=== PATIENT | female | born 1995 | race Caucasian/White ===

== ENCOUNTER 2016-11-11 13:02 | Observation (INO) ==
[2016-11-11] MEDS ORDERED: 0.9 % Sodium Chloride 1,000 ML IV ONE ×4 (13:10→16:04)
--- NOTE | 2016-11-11 13:20 | Emergency Department Note ---
START Narrative - START START: I examined this patient and my medical decision-making was reviewed with the CONCRETE TESTER/PA/Advanced Practice Nurse/Resident Physician. I agree with the documented findings, disposition and treatment plan as described except to the extent set forth below. ED attending: Patient's emergency medicine resident Dr. Holt. Please see copy of this note for H&P evaluation and management and ED disposition. We both had independent [id number] time in contact with this patient. Briefly: A 21-year-old diabetic by EMS nausea vomiting. Abdominal examination is benign. Dry oral mucosa and tachycardic. Patient is clinically suspicious for acute DKA. Be given IV fluids checking lites and then popped being placed on insulin. Accu-Chek is in the 400s. Admission anticipated, 35 minutes of critical care services provided to this patient.
[2016-11-11 14:36] LABS: Basophils # 0.1 K/mcL (0.0-0.2); Basophils % 0.7 %; Eosinophils % 0.1 %; Hematocrit 41.3 % (35.3-44.9); Hemoglobin 13.8 g/dL (11.5-15.4); Immature Granulocytes % 0.5 % (0-4); Lymphocytes # 1.9 K/mcL (0.6-4.6); Lymphocytes % 12.2 %; Mean Corpuscular HGB Conc 33.4 g/dL (31.6-35.5); Mean Corpuscular Hemoglobin 29.8 pg (28.0-33.3); Mean Corpuscular Volume 89.2 fL (83.0-100.0); Mean Platelet Volume 10.4 fL (9.4-12.4); Monocytes # 0.5 K/mcL (0.0-1.3); Monocytes % 2.9 %; Platelet Count 308 K/mcL (140-400); Red Blood Count 4.63 M/mcL (3.82-4.97); Red Cell Distribution Width 11.9 % (11.5-14.5); Segmented Neutrophils % 83.6 %
[2016-11-11 14:42] LABS: VBG HCO3 13.8 mEq/L (21-27)
[2016-11-11 14:44] LABS: VBG PH 7.18 pH Units (7.32-7.42)
[2016-11-11 14:51] LABS: Alanine Aminotransferase 11 Units/L (0-55); Albumin 3.7 g/dL (3.5-5.0); Albumin/Globulin Ratio 1.2 (1.1-2.2); Alkaline Phosphatase 63 Units/L (38-126); Aspartate Amino Transferase 8 Units/L (5-34); BUN/Creatinine Ratio 12 (6-26); Bilirubin,Direct 0.4 mg/dL (0.0-0.5); Bilirubin,Indirect 0.3 mg/dL (0.0-1.2); Bilirubin,Total 0.7 mg/dL (0.2-1.2); Blood Urea Nitrogen 12 mg/dL (7-20); Calcium 9.1 mg/dL (8.6-10.8); Carbon Dioxide 12 mEq/L (19-29); Chloride 103 mEq/L (98-109); Globulin 3.1 g/dL (2.4-3.5); Magnesium 1.4 mg/dL (1.6-2.6); Osmolality,Calculated 317 (280-300); Phosphorous 4.2 mg/dL (2.3-4.7); Potassium 4.5 mEq/L (3.5-4.5); Sodium 138 mEq/L (136-145); Total Protein 6.8 g/dL (6.0-8.3); eGFR For African Americans > 60 (> 60); eGFR For Non-African Americans > 60 (> 60)
[2016-11-11 14:58] LABS: Glucose 656 mg/dL (70-99)
[2016-11-11 15:00] LABS: Beta-Hydroxybutyric Acid > 2.00 mmol/L (0.02-0.27)
[2016-11-11 15:13] LABS: Lipase 20 Units/L (8-78)
[2016-11-11] MEDS ORDERED: Insulin Human Regular 100 UNIT in 0.9 % Sodium Chloride 100 ML IVC SCH ×3 (15:30→19:00)
[2016-11-11] MEDS ORDERED: Magnesium Sulfate 1 GM in D5% in Water 100 ML IVPB ONE (15:34)
--- NOTE | 2016-11-11 16:01 | Emergency Department Note ---
Disposition Clinical Impression: DKA, type 1 Qualifiers: Diabetes mellitus complication detail: without coma Qualified Code(s): E10.10 - Type 1 diabetes mellitus with ketoacidosis without coma Disposition: Admitted As Inpatient Condition: Good Forms: Work/School Release, ED Satisfaction Letter Abdominal Pain HPI - General Chief Complaint: ED Abdominal Pain Stated Complaint: abdominal pain Time Seen by Provider: 11/11/16 13:07 Source: EMS Mode of arrival: EMS Limitations: no limitations Nursing Notes Reviewed: Yes Vital Signs Reviewed: Yes - History of Present Illness HPI Narrative: Patient here for evaluation of nausea vomiting and diffuse abdominal pain. Patient has a history of type 1 diabetes and noncompliance. Patient states she did not take her insulin yesterday. She states to the nurse that she does not usually take her insulin. Does not do [id number] glucose checks either per nurse report. Patient was at work when she develops nausea and vomiting times several episodes without bile or blood. Patient is not had any change in constipation or diarrhea and does not have any focal abdominal signs. Patient states this is similar to her previous DKA episodes. Pain Scale: 10 - Related Data Home Medications Medication Instructions Recorded Confirmed Insulin LISPRO [Humalog] 0 unit SQ TIDWM MDD Sliding Scale 10/31/15 09/14/16 Previous Rx's Medication Instructions Recorded Insulin Glargine [Lantus] 30 unit SQ BID 30 Days 09/16/16 Allergies Allergy/AdvReac Type Severity Reaction Status Date / Time Amoxicillin Allergy Hives Verified 11/11/16 13:11 Constitutional: Reports: weakness. Denies: fever, chills Cardiovascular: Denies: chest pain, palpitations, dyspnea on exertion Respiratory: Denies: cough, dyspnea Gastrointestinal: Reports: abdominal pain, nausea, vomiting Genitourinary: Denies: urgency, dysuria, frequency Musculoskeletal: Denies: back pain Integumentary: Denies: rash Neurological: Denies: headache, weakness Endocrine: Denies: fatigue Abdominal Pain PMH - Past Medical History Medical history: Reports: diabetes Female Surgical History: Reports: Tonsillectomy MARITIME OFFICER history: Reports: no MARITIME OFFICER history Psychiatric history: Reports: no psych history - Social History Smoking status: Never smoker Alcohol use: Reports: none Drug use: Reports: none Physical Exam - General General appearance: in no apparent distress, lethargic - Head Head exam: atraumatic, normocephalic - Eye Eye exam: Present: normal appearance - ENT ENT exam: normal exam, normal oropharynx - Neck Neck exam: Present: normal inspection, full ROM - Chest Chest inspection: Present: normal inspection, symmetric chest wall rise. Absent : tenderness - Respiratory Respiratory exam: Present: normal lung sounds bilaterally. Absent: respiratory distress, wheezes - Cardiovascular Cardiovascular exam: Present: regular rate, normal rhythm - Abdominal Exam Abdominal exam: Present: soft, Non-Tender - Extremities Exam Extremities exam: Present: normal inspection, full ROM - Back Exam Back exam: Present: normal inspection, full ROM. Absent: tenderness, CVA tenderness (R), CVA tenderness (L) - Neurological Exam Neurological exam: Present: alert, oriented X3 - Psychiatric Psychiatric exam: Present: normal affect, normal mood - Skin Skin exam: Present: warm, dry, intact Course - Reevaluation(s) Reevaluation #1: Patient educated about labs and clinical condition. Patient states she has had this multiple times in the past. She states that she feels much better after initial fluids and would like to have a shot of insulin and go home. However due to her pH up this is not a good option at this time; I recommend that the patient stay for admission. - Consultations Consultation #1: Discussed with . Pt accepted. Vital Signs Temperature 97.7 F 11/11/16 13:07 Pulse Rate 102 11/11/16 13:07 Respiratory Rate 16 11/11/16 13:07 Blood Pressure 96/58 11/11/16 13:07 O2 Sat by Pulse Oximetry 99 11/11/16 13:07 Temperature 97.7 F 11/11/16 13:07 Pulse Rate 114 11/11/16 15:52 Respiratory Rate 16 11/11/16 15:52 Blood Pressure 103/57 11/11/16 15:52 O2 Sat by Pulse Oximetry 99 11/11/16 15:52 Oxygen Delivery Oxygen Delivery Room Air Abdominal Pain - Lab Data Result diagrams: 11/11/16 13:09 11/11/16 13:09 Lab Results 11/11/16 11/11/16 11/11/16 Range/Units 13:09 13:09 13:09 WBC 15.5 H (4.3-11.1) K/mcL RBC 4.63 (3.82-4.97) M/mcL Hgb 13.8 (11.5-15.4) g/dL Hct 41.3 (35.3-44.9) % MCV 89.2 (83.0-100.0) fL MCH 29.8 (28.0-33.3) pg MCHC 33.4 (31.6-35.5) g/dL RDW 11.9 (11.5-14.5) % Plt Count 308 (140-400) K/mcL MPV 10.4 (9.4-12.4) fL Immature Gran % 0.5 (0-4) % Seg Neutrophils % 83.6 % Lymphocytes % 12.2 % Monocytes % 2.9 % Eosinophils % 0.1 % Basophils % 0.7 % Neutrophils # 13.0 H (1.6-8.9) K/mcL Lymphocytes # 1.9 (0.6-4.6) K/mcL Monocytes # 0.5 (0.0-1.3) K/mcL Eosinophils # 0.0 (0.0-0.6) K/mcL Basophils # 0.1 (0.0-0.2) K/mcL VBG pH 7.18 L* (7.32-7.42) pH Units VBG pCO2 37 L (41-51) mmHg VBG pO2 54 H (25-40) mmHg VBG HCO3 13.8 L (21-27) mEq/L Sodium 138 (136-145) mEq/L Potassium 4.5 (3.5-4.5) mEq/L Chloride 103 (98-109) mEq/L Carbon Dioxide 12 L (19-29) mEq/L BUN 12 (7-20) mg/dL Creatinine 0.99 (0.57-1.11) mg/dL Est GFR ( Amer) > 60 (> 60) Est GFR (Non-Af Amer) > 60 (> 60) BUN/Creatinine Ratio 12 (6-26) Glucose 656 H* (70-99) mg/dL Calculated Osmolality 317 H (280-300) Calcium 9.1 (8.6-10.8) mg/dL Phosphorus 4.2 (2.3-4.7) mg/dL Magnesium 1.4 L (1.6-2.6) mg/dL Total Bilirubin 0.7 (0.2-1.2) mg/dL Direct Bilirubin 0.4 (0.0-0.5) mg/dL Indirect Bilirubin 0.3 (0.0-1.2) mg/dL AST 8 (5-34) Units/L ALT 11 (0-55) Units/L Alkaline Phosphatase 63 (38-126) Units/L Serum Total Protein 6.8 (6.0-8.3) g/dL Albumin 3.7 (3.5-5.0) g/dL Globulin 3.1 (2.4-3.5) g/dL Albumin/Globulin Ratio 1.2 (1.1-2.2) Lipase 20 (8-78) Units/L Beta-Hydroxybutyric Acd > 2.00 H (0.02-0.27) mmol/L Beta HCG, Quant < 1 (0-4) mIU/ml
[2016-11-11] MEDS ORDERED: Magnesium Oxide 400 MG TABLET PO ONE (16:42)
[2016-11-11] MEDS ORDERED: Ondansetron 4 MG/2 ML VIAL IVP PRN (17:32)
[2016-11-11] MEDS ORDERED: Naloxone 0.4 MG/ML INJ IVP PRN (17:32)
[2016-11-11] MEDS ORDERED: Insulin Regular, Human 100 UNIT/ML IV PRN ×2 (17:34→18:51)
[2016-11-11] MEDS ORDERED: *HR* Dextrose 50 % in Water (Syg) 50 ML SYRINGE IVP PRN ×3 (17:34→18:51)
[2016-11-11] MEDS ORDERED: D5% in 0.45% NACL 1,000 ML IVC PRN (17:34)
[2016-11-11] MEDS ORDERED: 0.9 % Sodium Chloride 1,000 ML IVC SCH (17:45)
[2016-11-11] MEDS ORDERED: 0.9 % Sodium Chloride w KCl 20 MEQ/1,000 ML MLS IVC SCH ×2 (17:45)
[2016-11-11] MEDS ORDERED: 0.9 % Sodium Chloride 1,000 ML IV SCH ×2 (17:45)
--- NOTE | 2016-11-11 17:49 | Internal Med History&Physical ---
<Girma Hardin - Last Filed: 11/11/16 17:46> Date of Encounter: 11/11/16 Time of Encounter: 17:46 Assessment and Plan (1) DKA, type 1 Current visit: Yes Status: Acute 3rd time being admitted for last one year, non compliant with checking her sugar at home, missed the basal dosage last night, received 4 L of NS IV bolus in the ER, will con't insulin drip with DKA protocol, replete potassium when below 5.3, check BMP q4hrs x3, switch drip to SQ when anion gap closes and bicarb is above 18, chronic issue for not being compliant at home, will check a1c and consult special educator. Qualifiers: Diabetes mellitus complication detail: without coma Qualified Code(s): E10.10 - Type 1 diabetes mellitus with ketoacidosis without coma (2) Type 1 diabetes mellitus Current visit: No Status: Acute Takes 30 SQ lantus BID and 10 to 15 SQ bolus before each meal, last a1c in Aug was 7.3, will consult special educator. 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 (4) DVT prophylaxis Current visit: No Status: Acute Heparin SQ BID. Internal Medicine - H&P: HPI Chief complaint: Abdominal pain and N/V Admitted From: Emergency Dept Plans for Post Hospital Care: Home History of present illness: Ms. Knowles is a 21 year old female with hx of DM I, not compliant with checking glucose at home, last time she checked was 3 weeks ago but she gives her self basal insulin BID and bolus TID before each meal, she missed last night 's basal dosage and this AM woke up with diffuse abdominal pain and nausea/ emesis. When she came to the ER, glucose was 656, serum ketone was more than 2, anion gap of 23 with bicarb of 12, pH of 7.18, she was started on IV insulin drip and received 4L of NS IV bolus, after that she felt better. This is her 3rd times being admitted for DKA in the last one year. Past Med Surg Social Fam HX - Past Medical History Medical history: diabetes Psychiatric history: no psych history - Past Surgical History Surgical History: no surgical history - Social History Smoking Status: Never smoker Smokeless Tobacco Status: No Alcohol use: none Drug use: none - Family History Mother Adopted: No Living Status: Still Living Internal Medicine - H&P: Meds Insulin LISPRO [Humalog] 10 - 15 unit SQ TIDWM MDD Sliding Scale 10/31/15 [ History] Insulin Glargine [Lantus] 30 unit SQ BID 30 Days 09/16/16 [Rx] Allergies Amoxicillin Allergy (Verified 11/11/16 13:11) Hives All Systems PM: A 10-system review of systems was performed and is negative for pertinent findings except as documented above in the HPI. Review of systems: Admits diffuse abdominal pain, nausea/emesis but denies fever/chill, [place], SOB, productive cough, chest pain, diarrhea or dysuria. - Constitutional Vitals: Temp Pulse Resp BP Pulse Ox 97.7 F 114 16 115/70 99 11/11/16 13:07 11/11/16 15:52 11/11/16 17:11 11/11/16 17:11 11/11/16 15:52 General appearance: Present: cooperative, A&O X 3, pleasant, no acute distress, answers questions appropriately - Head Head exam: Present: atraumatic, normocephalic - Eye Eye exam: Present: PERRL, conjuntiva pink, sclera anicteric Pupils: Present: PERRL - Neck Neck exam general surgery: Present: supple, trachea midline. Absent: lymphadenopathy - Respiratory Respiratory exam: Present: CTAB. Absent: accessory muscle use, rales, rhonchi, wheezes - Cardiovascular Cardiovascular exam: Present: RRR, +S1, +S2. Absent: diastolic murmur, gallop, rubs, systolic murmur - GI/Abdominal GI/Abdominal exam: Present: normal bowel sounds, soft, tenderness (slightly with palpation diffusely), no peritoneal signs. Absent: distended - Extremities Exam Extremities exam: Present: warm, radial pulses palpable and symetrical. Absent : calf tenderness, cyanotic, pedal edema - Neurological Exam Neurological exam: Present: CN II-XII intact, oriented X3, no focal deficits. Absent: pronater drift, facial droop, speech deficit - Skin Skin exam: Present: dry, intact Internal Med - H&P Results - Labs CBC & Chem 7: 11/11/16 13:09 11/11/16 13:09 <Bobby Rojo - Last Filed: 11/11/16 20:10> Date of Encounter: 11/11/16 Assessment and Plan (1) DKA, type 1 Current visit: Yes Status: Acute Qualifiers: Diabetes mellitus complication detail: without coma Qualified Code(s): E10.10 - Type 1 diabetes mellitus with ketoacidosis without coma (2) Nephrocalcinosis Current visit: Yes Status: Acute (3) Type 1 diabetes mellitus Current visit: No Status: Acute Qualifiers: Diabetes mellitus complication status: without complication Qualified Code( s): E10.9 - Type 1 diabetes mellitus without complications Internal Medicine - H&P: HPI History of present illness: Ms. Knowles is a 21 year old female All Systems PM: A 10-system review of systems was performed and is negative for pertinent findings except as documented above in the HPI. - Constitutional Vitals: Temp Pulse Resp BP Pulse Ox 98.8 F 125 16 109/64 99 11/11/16 18:18 11/11/16 18:18 11/11/16 18:18 11/11/16 18:18 11/11/16 15:52 Internal Med - H&P Results - Labs CBC & Chem 7: 11/11/16 13:09 11/11/16 13:09 Labs: Urine 11/11/16 Range/Units Unknown Urine Color Yellow (Yellow) Urine Clarity Clear (Clear) Urine pH 6.0 (5.0-8.0) pH Units Ur Specific [place] 1.023 (1.010-1.025) Urine Protein Negative (Neg-Trace) mg/dL Urine Glucose (UA) >=1000 H (Normal) mg/dL - Attending Attestation I examined this patient and my medical decision-making was reviewed with the Resident Physician on 11/11/16. I agree with the documented findings, disposition and treatment plan as described except to the extent set forth below. 21 y/o female with hx of insulin dependent diabetes presented to ED with abd pain and nausea. Found to be in DKA. Currently beginning to feel somewhat better after insulin and fluids. Pain in abdomen improving. Hungry. History above reviewed Exam Alert. Comfortable Mucus membranes dry Heart tachy and regular Lungs clear Abd soft and nontender No edema Labs reviewed I/P 1. Acute DKA 2. Insulin dependent diabetes Further diagnoses and plan as above.
[2016-11-11 18:11] LABS: Bilirubin,Urine Negative (Negative); Blood,Urine Negative (Negative); Clarity,Urine Clear (Clear); Color,Urine Yellow (Yellow); Glucose,Urine (UA) >=1000 mg/dL (Normal); Ketones,Urine >=160 mg/dL (Negative); Leukocyte Esterase,Urine Negative (Negative); Nitrite,Urine Negative (Negative); Protein,Urine Negative (Neg-Trace); Specific Gravity,Urine 1.023 (1.010-1.025); Urobilinogen,Urine Normal (Normal)
[2016-11-11 20:43] LABS: BUN/Creatinine Ratio 15 (6-26); Blood Urea Nitrogen 11 mg/dL (7-20); Calcium 8.7 mg/dL (8.6-10.8); Carbon Dioxide 13 mEq/L (19-29); Chloride 113 mEq/L (98-109); Glucose 242 mg/dL (70-99); Osmolality,Calculated 295 (280-300); Potassium 3.9 mEq/L (3.5-4.5); Sodium 139 mEq/L (136-145); eGFR For African Americans > 60 (> 60); eGFR For Non-African Americans > 60 (> 60)
[2016-11-11] MEDS: D5% in 0.45% NACL w KCl 20 MEQ/1,000 ML MLS IVC PRN (21:22)
[2016-11-12] MEDS: D5% in 0.45% NACL w KCl 20 MEQ/1,000 ML MLS IVC PRN (01:50)
[2016-11-12 02:21] LABS: Basophils % 0.2 %; Hematocrit 36.4 % (35.3-44.9); Hemoglobin 12.5 g/dL (11.5-15.4); Immature Granulocytes % 0.4 % (0-4); Lymphocytes # 1.5 K/mcL (0.6-4.6); Lymphocytes % 7.9 %; Mean Corpuscular HGB Conc 34.3 g/dL (31.6-35.5); Mean Corpuscular Hemoglobin 30.4 pg (28.0-33.3); Mean Corpuscular Volume 88.6 fL (83.0-100.0); Monocytes # 1.1 K/mcL (0.0-1.3); Monocytes % 6.2 %; Neutrophils # 15.6 K/mcL (1.6-8.9); Platelet Count 295 K/mcL (140-400); Red Blood Count 4.11 M/mcL (3.82-4.97); Red Cell Distribution Width 11.9 % (11.5-14.5); Segmented Neutrophils % 85.3 %
[2016-11-12 02:30] LABS: BUN/Creatinine Ratio 14 (6-26); Blood Urea Nitrogen 9 mg/dL (7-20); Calcium 8.5 mg/dL (8.6-10.8); Calcium 8.6 mg/dL (8.6-10.8); Carbon Dioxide 18 mEq/L (19-29); Chloride 113 mEq/L (98-109); Glucose 107 mg/dL (70-99); Glucose 109 mg/dL (70-99); Magnesium 1.7 mg/dL (1.6-2.6); Osmolality,Calculated 283 (280-300); Osmolality,Calculated 285 (280-300); Potassium 3.7 mEq/L (3.5-4.5); Potassium 3.8 mEq/L (3.5-4.5); Sodium 137 mEq/L (136-145); Sodium 138 mEq/L (136-145); eGFR For African Americans > 60 (> 60); eGFR For Non-African Americans > 60 (> 60)
[2016-11-12 02:44] LABS: Hemoglobin A1C 8.8 %
[2016-11-12] MEDS ORDERED: Dextrose Gel 15 GM PO PRN ×4 (04:10→09:16)
[2016-11-12] MEDS ORDERED: D5% in Water 1,000 ML IV PRN ×2 (04:10→09:16)
[2016-11-12] MEDS: *HR* Dextrose 50 % in Water (Syg) 50 ML SYRINGE IVP PRN ×2 (04:25→08:40)
[2016-11-12] MEDS: *HR* Heparin 5,000 UNIT/ML VIAL SQ SCH ×3 (04:31→20:09)
[2016-11-12] MEDS: Insulin DETEMIR 100 UNIT/ML X5UNITS SQ SCH ×3 (05:45→21:40)
[2016-11-12 06:39] LABS: BUN/Creatinine Ratio 13 (6-26); Blood Urea Nitrogen 8 mg/dL (7-20); Calcium 8.3 mg/dL (8.6-10.8); Carbon Dioxide 19 mEq/L (19-29); Chloride 114 mEq/L (98-109); Glucose 61 mg/dL (70-99); Osmolality,Calculated 284 (280-300); Potassium 3.8 mEq/L (3.5-4.5); Sodium 139 mEq/L (136-145); eGFR For African Americans > 60 (> 60); eGFR For Non-African Americans > 60 (> 60)
[2016-11-12] MEDS ORDERED: Insulin LISPRO 300 UNITS/3 ML VIAL SQ SCH ×3 (07:30→21:00)
--- NOTE | 2016-11-12 08:28 | Internal Med Progress Note ---
<Girma Hardin - Last Filed: 11/12/16 10:23> Date of Encounter: 11/12/16 Time of Encounter: 08:28 - Assessment and plan (1) DKA, type 1 Current Visit: Yes Status: Acute Assessment and plan: 3rd time being admitted for last one year, non compliant with checking her sugar at home, per night team, insulin drip converted to sq insulin, IV fluid was off, glucose this AM was below 50 therefore she received D50 x2, BMP from this AM showed closed gap and bicarb above 18 but repeat one showed gap of 11 and bicarb of 17, will resume IV NS fluid, con't SQ insulin for now, recheck BMP in the afternoon. Qualifiers: Diabetes mellitus complication detail: without coma Qualified Code(s): E10.10 - Type 1 diabetes mellitus with ketoacidosis without coma (2) Type 1 diabetes mellitus Current Visit: No Status: Acute Assessment and plan: Non compliant at home, does not check sugar often, will consult electronic systems technician. 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 (4) DVT prophylaxis Current Visit: No Status: Acute Assessment and plan: Heparin SQ BID. - Subjective Interval history: Pt seen and examined, ate some breakfast this AM, felt better than yesterday, no abdominal pain, nausea or emesis. - Constitutional Vitals: Temp Pulse Resp BP Pulse Ox 98.9 F 104 18 85/43 98 11/12/16 07:52 11/12/16 07:52 11/12/16 07:52 11/12/16 07:52 11/12/16 07:52 General appearance: Present: cooperative, A&O X 3, pleasant, no acute distress, answers questions appropriately - Head Head exam: Present: atraumatic, normocephalic - Eye Eye exam: Present: PERRL, conjuntiva pink, sclera anicteric Pupils: Present: PERRL - Neck Neck exam general surgery: Present: supple, trachea midline. Absent: lymphadenopathy - Respiratory Respiratory exam: Present: CTAB. Absent: accessory muscle use, rales, rhonchi, wheezes - Cardiovascular Cardiovascular exam: Present: RRR, +S1, +S2. Absent: diastolic murmur, gallop, rubs, systolic murmur - GI/Abdominal GI/Abdominal exam: Present: normal bowel sounds, soft, no peritoneal signs. Absent: distended, tenderness - Extremities Exam Extremities exam: Present: warm, radial pulses palpable and symetrical. Absent : calf tenderness, cyanotic, pedal edema - Neurological Exam Neurological exam: Present: CN II-XII intact, oriented X3, no focal deficits. Absent: pronater drift, facial droop, speech deficit - Skin Skin exam: Present: dry, intact Internal Medicine: Result - Labs CBC & Chem 7: 11/12/16 01:15 11/12/16 09:36 Labs: Short CBC 11/12/16 Range/Units 01:15 WBC 18.3 H (4.3-11.1) K/mcL Hgb 12.5 (11.5-15.4) g/dL Hct 36.4 (35.3-44.9) % Plt Count 295 (140-400) K/mcL Neutrophils # 15.6 H (1.6-8.9) K/mcL BMP 11/11/16 11/12/16 11/12/16 20:15 01:15 01:15 Sodium 139 138 137 Potassium 3.9 3.7 3.8 Chloride 113 H 113 H 113 H Carbon Dioxide 13 L 18 L 18 L BUN 11 9 9 Creatinine 0.72 0.63 0.63 Glucose 242 H 107 H 109 H Calcium 8.7 8.6 8.5 L 11/12/16 06:18 Sodium 139 Potassium 3.8 Chloride 114 H Carbon Dioxide 19 BUN 8 Creatinine 0.60 Glucose 61 L Calcium 8.3 L Urine 11/11/16 Range/Units Unknown Urine Color Yellow (Yellow) Urine Clarity Clear (Clear) Urine pH 6.0 (5.0-8.0) pH Units Ur Specific [place] 1.023 (1.010-1.025) Urine Protein Negative (Neg-Trace) mg/dL Urine Glucose (UA) >=1000 H (Normal) mg/dL Consult Discharge Plan - Plan Referrals: Alex Gracia DO [Primary Care Provider] - 11/18/16 3:00 pm (PLEASE MAKE SURE YOU SHOW UP TO YOUR APPOINTMENT, OR CANCEL WITHIN 24 HOURS OF APPOINMENT TIME,) <Bobby Rojo - Last Filed: 11/12/16 19:02> Date of Encounter: 11/12/16 - Assessment and plan (1) DKA, type 1 Current Visit: Yes Status: Acute Qualifiers: Diabetes mellitus complication detail: without coma Qualified Code(s): E10.10 - Type 1 diabetes mellitus with ketoacidosis without coma (2) Nephrocalcinosis Current Visit: Yes Status: Acute (3) Type 1 diabetes mellitus Current Visit: No Status: Acute Qualifiers: Diabetes mellitus complication status: without complication Qualified Code( s): E10.9 - Type 1 diabetes mellitus without complications - Constitutional Vitals: Temp Pulse Resp BP Pulse Ox 98.9 F 106 17 111/72 98 11/12/16 18:53 11/12/16 18:53 11/12/16 18:53 11/12/16 18:53 11/12/16 18:53 Internal Medicine: Result - Labs CBC & Chem 7: 11/12/16 01:15 11/12/16 16:16 Labs: Short CBC 11/12/16 Range/Units 01:15 WBC 18.3 H (4.3-11.1) K/mcL Hgb 12.5 (11.5-15.4) g/dL Hct 36.4 (35.3-44.9) % Plt Count 295 (140-400) K/mcL Neutrophils # 15.6 H (1.6-8.9) K/mcL BMP 11/11/16 11/12/16 11/12/16 20:15 01:15 01:15 Sodium 139 138 137 Potassium 3.9 3.7 3.8 Chloride 113 H 113 H 113 H Carbon Dioxide 13 L 18 L 18 L BUN 11 9 9 Creatinine 0.72 0.63 0.63 Glucose 242 H 107 H 109 H Calcium 8.7 8.6 8.5 L 11/12/16 11/12/16 11/12/16 06:18 09:36 16:16 Sodium 139 136 136 Potassium 3.8 3.9 3.6 Chloride 114 H 108 109 Carbon Dioxide 19 17 L 17 L BUN 8 7 7 Creatinine 0.60 0.70 0.67 Glucose 61 L 217 H 230 H Calcium 8.3 L 8.7 8.4 L - Attending Attestation I examined this patient and my medical decision-making was reviewed with the Resident Physician on 11/12/16. I agree with the documented findings, disposition and treatment plan as described except to the extent set forth below. Ms. Knowles is currently in observation due to DKA. She is moderate to high risk due to potential of worsening of blood sugar and acidosis. Ms. Knowles is feeling OK. Eating breakfast. No further pain. Exam Alert. Comfortable Heart reg Lungs clear No edema I/P 1. Acute DKA - improving 2. Ins dependent diabetes Further diagnoses and plan as above.
[2016-11-12] MEDS ORDERED: *HR* Dextrose 50 % in Water (Syg) 50 ML SYRINGE IVP PRN (09:16)
[2016-11-12 10:01] LABS: BUN/Creatinine Ratio 10 (6-26); Blood Urea Nitrogen 7 mg/dL (7-20); Calcium 8.7 mg/dL (8.6-10.8); Carbon Dioxide 17 mEq/L (19-29); Chloride 108 mEq/L (98-109); Glucose 217 mg/dL (70-99); Osmolality,Calculated 287 (280-300); Potassium 3.9 mEq/L (3.5-4.5); Sodium 136 mEq/L (136-145); eGFR For African Americans > 60 (> 60); eGFR For Non-African Americans > 60 (> 60)
[2016-11-12] MEDS: Insulin LISPRO 300 UNITS/3 ML VIAL SQ SCH ×2 (11:45→16:50)
[2016-11-12] MEDS: 0.9 % Sodium Chloride 1,000 ML IVC SCH ×2 (11:46→18:45)
[2016-11-12 16:50] LABS: BUN/Creatinine Ratio 10 (6-26); Blood Urea Nitrogen 7 mg/dL (7-20); Calcium 8.4 mg/dL (8.6-10.8); Carbon Dioxide 17 mEq/L (19-29); Chloride 109 mEq/L (98-109); Glucose 230 mg/dL (70-99); Osmolality,Calculated 287 (280-300); Potassium 3.6 mEq/L (3.5-4.5); Sodium 136 mEq/L (136-145); eGFR For African Americans > 60 (> 60); eGFR For Non-African Americans > 60 (> 60)
[2016-11-12] MEDS: Chloraseptic Spray 177 ML BOTTLE MM PRN (20:11)
[2016-11-13] MEDS: 0.9 % Sodium Chloride 1,000 ML IVC SCH ×2 (00:53→08:29)
[2016-11-13] MEDS: Chloraseptic Spray 177 ML BOTTLE MM PRN (00:55)
[2016-11-13] MEDS ORDERED: Acetaminophen 325 MG TABLET PO PRN (04:23)
[2016-11-13 05:20] LABS: Basophils # 0.1 K/mcL (0.0-0.2); Basophils % 0.4 %; Eosinophils % 0.1 %; Hematocrit 38.5 % (35.3-44.9); Hemoglobin 13.4 g/dL (11.5-15.4); Immature Granulocytes % 0.2 % (0-4); Lymphocytes # 3.2 K/mcL (0.6-4.6); Lymphocytes % 22.3 %; Mean Corpuscular HGB Conc 34.8 g/dL (31.6-35.5); Mean Corpuscular Hemoglobin 30.2 pg (28.0-33.3); Mean Corpuscular Volume 86.9 fL (83.0-100.0); Mean Platelet Volume 9.8 fL (9.4-12.4); Monocytes # 0.9 K/mcL (0.0-1.3); Monocytes % 6.2 %; Neutrophils # 10.2 K/mcL (1.6-8.9); Platelet Count 281 K/mcL (140-400); Red Blood Count 4.43 M/mcL (3.82-4.97); Red Cell Distribution Width 12.1 % (11.5-14.5); Segmented Neutrophils % 70.8 %
[2016-11-13 05:34] LABS: BUN/Creatinine Ratio 5 (6-26); Blood Urea Nitrogen 3 mg/dL (7-20); Calcium 8.4 mg/dL (8.6-10.8); Carbon Dioxide 19 mEq/L (19-29); Chloride 112 mEq/L (98-109); Glucose 44 mg/dL (70-99); Osmolality,Calculated 284 (280-300); Potassium 3.3 mEq/L (3.5-4.5); Sodium 140 mEq/L (136-145); eGFR For African Americans > 60 (> 60); eGFR For Non-African Americans > 60 (> 60)
[2016-11-13] MEDS: Insulin LISPRO 300 UNITS/3 ML VIAL SQ SCH (08:25)
[2016-11-13] MEDS: Insulin DETEMIR 100 UNIT/ML X5UNITS SQ SCH (08:30)
[2016-11-13] MEDS: *HR* Heparin 5,000 UNIT/ML VIAL SQ SCH (08:30)
[2016-11-13 11:44] VITALS: BP 123/88
--- NOTE | 2016-11-13 11:45 | Discharge Summary ---
<Girma Hardin - Last Filed: 11/13/16 11:40> Date of Encounter: 11/13/16 Time of Encounter: 11:40 - Discharge Diagnosis (1) DKA, type 1 Priority: Primary Status: Acute Qualifiers: Diabetes mellitus complication detail: without coma Qualified Code(s): E10.10 - Type 1 diabetes mellitus with ketoacidosis without coma (2) Type 1 diabetes mellitus Priority: Secondary Status: Acute Qualifiers: Diabetes mellitus complication status: without complication Qualified Code( s): E10.9 - Type 1 diabetes mellitus without complications (3) Nephrocalcinosis Priority: Secondary Status: Acute (4) DVT prophylaxis Priority: Secondary Status: Acute - Discharge Medications Home Medications: Insulin LISPRO [Humalog] 10 - 15 unit SQ TIDWM MDD Sliding Scale 10/31/15 [ History] Insulin Glargine [Lantus] 15 unit SQ BID 30 Days 11/13/16 [Rx] Allergies/Adverse Reactions: Allergies Amoxicillin Allergy (Verified 11/11/16 13:11) Hives Date of admission: 11/11/16 16:53 Primary care physician: Alex Gracia DO Consults: 11/11/16 17:44 Consult to Embedded Processor [CONS] Routine Comment: 11/11/16 18:26 Consult to Nutrition [CONS] Routine Comment: Consulting Provider: NUTRITION Reason for Dietary Consult: MST Score Discharging clinician: Girma Hardin Anticipated date of discharge: 11/13/16 - Patient Status Disposition: Home, Self-Care Condition: Good Functional capacity at discharge: independent ambulation Overall status at discharge: patient is progressing back to baseline - Discharge Instructions Instructions: Diabetes Mellitus Type 2 in Adults (DC) Follow Up With: Girma Hardin DO [Resident] - (Please set up an appointment, f/u in a week for hospital d/c f/u, DM I control and f/u on nephrocalcinosis. [phone]) - Diet and Activity Activity: resume usual activities as tolerated Diet: diabetic diet Hospital course: Ms. Knowles is a 21 year old female with hx of DM I, admitted for DKA, this is recurrent issue for her, this is her third time, not compliant with insulin and check sugar at home, she was started on insulin drip, gap closed, bicarb improved, abd/nausea/emesis resolved, able to tolerate foods, therefore she will be d/c today in stable condition. Morning glucose was low 50 for consecutive days therefore decreased her basal to 15 units BID, health promotion educator spoke to her about possible start of insulin pump, she states that she wants to think about it, she will f/u with her PCP in a week. - Time Spent with Patient Total time spent providing and/or coordinating discharge services: - Constitutional Vitals: Temp Pulse Resp BP Pulse Ox 98.7 F 101 16 120/86 98 11/13/16 06:00 11/13/16 06:00 11/13/16 06:00 11/13/16 06:00 11/13/16 06:00 General appearance: Present: cooperative, A&O X 3, pleasant, no acute distress, answers questions appropriately - Head Head exam: Present: atraumatic, normocephalic - Eye Eye exam: Present: PERRL, conjuntiva pink, sclera anicteric Pupils: Present: PERRL - Neck Neck exam general surgery: Present: supple, trachea midline. Absent: lymphadenopathy - Respiratory Respiratory exam: Present: CTAB. Absent: accessory muscle use, rales, rhonchi, wheezes - Cardiovascular Cardiovascular exam: Present: RRR, +S1, +S2. Absent: diastolic murmur, gallop, rubs, systolic murmur - GI/Abdominal GI/Abdominal exam: Present: normal bowel sounds, soft, no peritoneal signs. Absent: distended, tenderness - Extremities Exam Extremities exam: Present: warm, radial pulses palpable and symetrical. Absent : calf tenderness, cyanotic, pedal edema - Neurological Exam Neurological exam: Present: CN II-XII intact, oriented X3, no focal deficits. Absent: pronater drift, facial droop, speech deficit - Skin Skin exam: Present: dry, intact <Bobby Rojo - Last Filed: 11/13/16 15:44> Date of Encounter: 11/13/16 - Discharge Diagnosis (1) DKA, type 1 Status: Acute Qualifiers: Diabetes mellitus complication detail: without coma Qualified Code(s): E10.10 - Type 1 diabetes mellitus with ketoacidosis without coma (2) Nephrocalcinosis Status: Acute (3) Type 1 diabetes mellitus Status: Acute Qualifiers: Diabetes mellitus complication status: without complication Qualified Code( s): E10.9 - Type 1 diabetes mellitus without complications Date of admission: 11/11/16 16:53 Primary care physician: Alex Gracia, Consults: 11/11/16 17:44 Consult to Embedded Processor [CONS] Routine Comment: 11/11/16 18:26 Consult to Nutrition [CONS] Routine Comment: Consulting Provider: NUTRITION Reason for Dietary Consult: MST Score Hospital course: Ms. Knowles is a 21 year old female - Time Spent with Patient Total time spent providing and/or coordinating discharge services: - Constitutional Vitals: Temp Pulse Resp BP Pulse Ox 97.9 F 94 15 123/88 98 11/13/16 11:42 11/13/16 11:42 11/13/16 11:42 11/13/16 11:42 11/13/16 11:42 - Attending Attestation I examined this patient and my medical decision-making was reviewed with the Resident Physician on 11/13/16. I agree with the documented findings, disposition and treatment plan as described except to the extent set forth below. Ms. Knowles is doing better and ready to go home. Blood sugar better but still low in morning. Vitals stable today. Exam Alert and comfortable Heart reg No wheeze Plan D/C today Outpatient follow up in resident clinic.
== END 2016-11-13 13:21 | disposition home or self-care (01) ==
LOC: EMEROO 13:02 → 2NNU 16:53 → SUATTDRO 16:53 → INTOOBSV 16:53 → 2NNU 17:01 → UNDODISIN 11-12 13:36 → 2NENU 11-12 13:36
PROVIDERS: ADMIT Internal Medicine; ATTEND Internal Medicine

== ENCOUNTER 2017-05-19 20:51 | Observation (INO) ==
[2017-05-19] MEDS ORDERED: Ondansetron 4 MG/2 ML VIAL IVP ONE (21:42)
[2017-05-19] MEDS: 0.9 % Sodium Chloride 1,000 ML IVC SCH (21:59)
[2017-05-19 22:53] LABS: VBG HCO3 12.6 mEq/L (21-27)
[2017-05-19] MEDS ORDERED: Ondansetron 4 MG/2 ML VIAL ONE (22:53)
[2017-05-19 22:54] LABS: Basophils % 0.2 %; Hemoglobin 16.6 g/dL (11.5-15.4); Immature Granulocytes % 0.9 % (0-4); Lymphocytes # 2.1 K/mcL (0.6-4.6); Lymphocytes % 9.3 %; Mean Corpuscular HGB Conc 34.6 g/dL (31.6-35.5); Mean Corpuscular Hemoglobin 30.5 pg (28.0-33.3); Mean Corpuscular Volume 88.1 fL (83.0-100.0); Mean Platelet Volume 10.1 fL (9.4-12.4); Monocytes # 1.1 K/mcL (0.0-1.3); Neutrophils # 19.4 K/mcL (1.6-8.9); Platelet Count 356 K/mcL (140-400); Red Blood Count 5.45 M/mcL (3.82-4.97); Segmented Neutrophils % 84.6 %
[2017-05-19 22:55] LABS: VBG PH 7.14 pH Units (7.32-7.42)
[2017-05-19 23:00] LABS: Beta-Hydroxybutyric Acid > 2.00 mmol/L (0.02-0.27)
[2017-05-19 23:06] LABS: Estimated Average Glucose > 355 mg/dl; Hemoglobin A1C >= 14.1 %
[2017-05-19 23:10] LABS: Alanine Aminotransferase 19 Units/L (0-55); Albumin 4.3 g/dL (3.5-5.0); Albumin/Globulin Ratio 0.9 (1.1-2.2); Alkaline Phosphatase 106 Units/L (38-126); Aspartate Amino Transferase 18 Units/L (5-34); BUN/Creatinine Ratio 13 (6-26); Bilirubin,Total 0.3 mg/dL (0.2-1.2); Blood Urea Nitrogen 15 mg/dL (7-20); Calcium 9.7 mg/dL (8.6-10.8); Chloride 107 mEq/L (98-109); Globulin 4.6 g/dL (2.4-3.5); Glucose 82 mg/dL (70-99); Osmolality,Calculated 278 (280-300); Phosphorous 3.1 mg/dL (2.3-4.7); Potassium 4.5 mEq/L (3.5-4.5); Sodium 134 mEq/L (136-145); Total Protein 8.9 g/dL (6.0-8.3); eGFR For African Americans > 60 (> 60); eGFR For Non-African Americans 56 (> 60)
[2017-05-19 23:12] LABS: Carbon Dioxide 10 mEq/L (19-29)
[2017-05-19] MEDS ORDERED: *HR* Dextrose 50 % in Water (Syg) 50 ML SYRINGE IVP PRN (23:20)
--- NOTE | 2017-05-20 00:23 | Emergency Department Note ---
Disposition Clinical Impression: Diabetic ketoacidosis Qualifiers: Diabetes mellitus type: other specified (including JUANA) Diabetes mellitus complication detail: without coma Qualified Code(s): E13.10 - Other specified diabetes mellitus with ketoacidosis without coma Type 1 diabetes mellitus Qualifiers: Diabetes mellitus complication status: with unspecified complications Qualified Code(s): E10.8 - Type 1 diabetes mellitus with unspecified complications Disposition: Admitted As Inpatient Condition: Good Referrals: NO,PCP [Primary Care Provider] - Forms: Work/School Release, ED Satisfaction Letter Time of Disposition: 03:25 General Adult HPI - General Chief complaint: ED Abdominal Pain Stated complaint: dka Time Seen by Provider: 05/19/17 21:36 Source: patient Mode of arrival: ambulatory Limitations: no limitations Nursing Notes Reviewed: Yes Vital Signs Reviewed: Yes - History of Present Illness HPI Narrative: Patient presents emergency room with complaints of generalized malaise recent illness and stopped taking her diabetic medication. She has done this several times in the past. She is going to DKA multiple times from this issue. Patient denies any other issues at this point. She said she stopped taking her medication sometime earlier this week. Denies any suicidal or homicidal thoughts at this time. Onset (ago): day(s) Radiation: non-radiation Pain Severity: moderate Pain Scale: 10 Quality: aching Consistency: constant Improves with: nothing Worsens with: movement Associated symptoms: Reports: fever/chills, loss of appetite, malaise, nausea/ vomiting Treatments Prior to Arrival: none - Related Data Home Medications Medication Instructions Recorded Confirmed Insulin LISPRO [Humalog] 10 - 15 unit SQ TIDWM MDD Sliding 10/31/15 11/11/16 Scale Previous Rx's Medication Instructions Recorded Insulin Glargine [Lantus] 15 unit SQ BID 30 Days 11/13/16 Fluconazole [Diflucan] 150 mg PO DAILY #1 tab 02/04/17 Allergies Allergy/AdvReac Type Severity Reaction Status Date / Time Amoxicillin Allergy Hives Verified 05/19/17 21:30 All systems ED: reviewed and negative except as stated. Review of Systems: As Per HPI Constitutional: Reports: chills. Denies: fever, weakness Cardiovascular: Denies: chest pain, palpitations, dyspnea on exertion, orthopnea , edema Respiratory: Denies: cough, dyspnea, wheezes Gastrointestinal: Reports: abdominal pain, nausea. Denies: vomiting, diarrhea, constipation Genitourinary: Denies: urgency, dysuria, frequency Musculoskeletal: Reports: back pain. Denies: neck pain Integumentary: Denies: rash Neurological: Denies: headache, weakness, numbness Endocrine: Denies: fatigue Past Medical History - Past Medical History Attestation: Yes The following information was validated with the patient. Source: patient Medical history: Reports: diabetes Surgical history: Reports: other Psychiatric history: Reports: no psych history MEDICAL ONCOLOGY PHYSICIAN history: Reports: no MEDICAL ONCOLOGY PHYSICIAN history - Social History Smoking Status: Never smoker Smokeless Tobacco Status: No Alcohol use: Reports: none Drug use: Reports: none Physical Exam - General Limitations: no limitations General appearance: alert - Head Head exam: atraumatic, normocephalic, normal inspection - Neck Neck exam: Present: normal inspection, full ROM, trachea midline - Chest Chest inspection: Present: normal inspection, symmetric chest wall rise - Respiratory Respiratory exam: Present: normal lung sounds bilaterally - Cardiovascular Cardiovascular exam: Present: regular rate, normal rhythm, normal heart sounds - Abdominal Exam Abdominal exam: Present: soft, Non-Tender, normal bowel sounds. Absent: tenderness, distention, guarding, rebound, rigidity, Frias's sign, Rovsing's sign, tenderness at McBurney's Point - Extremities Exam Extremities exam: Present: normal inspection, full ROM, normal capillary refill. Absent: tenderness - Back Exam Back exam: Present: normal inspection, full ROM. Absent: tenderness, CVA tenderness (R), CVA tenderness (L) - Neurological Exam Neurological exam: Present: alert, oriented X3, CN II-XII intact, normal gait - Skin Skin exam: Present: warm, dry, intact, normal color Course Course Narrative: Patient seen and examined at the time of arrival. See history of present illness. 0.1-year-old female with known type 1 diabetes. Presents tonight with concern for DKA. She stopped taking her medications this week and has not been eating or drinking appropriately. She has had generalized malaise. And chills and decreased urinary output. No other acute symptoms or concerns according to her this time. She is just feeling like she is in DKA again. Vital signs reviewed in presentation are stable. Patient denies fevers chills chest pain shortness of breath she has persistent nausea and vomiting with no diarrhea. She has not been taking her medications. Patient is concerning for DKA at this time. 2 L of fluid were removed immediately. Accu-Chek as well as labs including serum ketones urinalysis and venous blood gas earlier this time. Chest x-ray to be completed for infectious etiology. Disposition pending workup and treatment course. Physical exam shows a 19-year-old female that is poorly To this time and uncomfortable lying in the bed. Mucous membranes are dry. Lungs are clear heart is regular abdomen is soft no guarding no rigidity. She moves all 4 extremities but does appear to be uncomfortable generalized malaise and muscle aches. Fluid hydration and symptom control to be completed. DKA evaluation to be completed - Reevaluation(s) Reevaluation #1: Patient found to have hypoglycemia with stable glucose of 80. She does have signs of gap metabolic acidosis with the ABG being 7.1, increased ketones in the serum, bicarbonate of 10. Patient has what appears to be hypoglycemic diabetic ketoacidosis. IV dextrose started this time on with the 2 L of fluid. Accu-Cheks to be ordered every half hour. Patient otherwise has no other specific acute pathology. Will continue to monitor here. Disposition pending treatment course in emergency room. Admission process to be completed after all laboratory results are reviewed. Time: 00:57 Reevaluation #2: Patient is euglycemic diabetic ketoacidosis at this time. Hospitalist Dr. Perea and I reviewed the presentation symptoms of medical intervention. No other concerns or recommendations at this time. Patient to be admitted for stabilization and monitoring of her symptoms. Family informed patient form. We will continue monitoring until the admission process is completed Time: 03:23 Vital Signs Temperature 98.4 F 05/19/17 21:27 Pulse Rate 117 05/19/17 21:27 Respiratory Rate 18 05/19/17 21:27 Blood Pressure 110/80 05/19/17 21:27 O2 Sat by Pulse Oximetry 97 05/19/17 21:27 Temperature 98.4 F 05/19/17 21:27 Pulse Rate 106 05/20/17 00:29 Respiratory Rate 20 05/20/17 00:29 Blood Pressure 122/86 05/20/17 00:29 O2 Sat by Pulse Oximetry 99 05/20/17 00:29 Oxygen Delivery Oxygen Delivery Room Air Medical Decision Making - MDM Narrative Medical decision making narrative: Euglycemic diabetic ketoacidosis, type 1 diabetes, dehydration - Medical Records Medical records reviewed: Yes I reviewed the patient's medical records. - Lab Data Lab results reviewed: Yes I reviewed the patient's lab results. Result diagrams: 05/19/17 22:40 05/19/17 22:40 Lab Results 05/19/17 05/19/17 05/19/17 Range/Units 22:40 22:40 22:40 WBC 22.9 H (4.3-11.1) K/mcL RBC 5.45 H (3.82-4.97) M/mcL Hgb 16.6 H (11.5-15.4) g/dL Hct 48.0 H (35.3-44.9) % MCV 88.1 (83.0-100.0) fL MCH 30.5 (28.0-33.3) pg MCHC 34.6 (31.6-35.5) g/dL RDW 12.0 (11.5-14.5) % Plt Count 356 (140-400) K/mcL MPV 10.1 (9.4-12.4) fL Immature Gran % 0.9 (0-4) % Seg Neutrophils % 84.6 % Lymphocytes % 9.3 % Monocytes % 5.0 % Eosinophils % 0.0 % Basophils % 0.2 % Neutrophils # 19.4 H (1.6-8.9) K/mcL Lymphocytes # 2.1 (0.6-4.6) K/mcL Monocytes # 1.1 (0.0-1.3) K/mcL Eosinophils # 0.0 (0.0-0.6) K/mcL Basophils # 0.0 (0.0-0.2) K/mcL VBG pH (7.32-7.42) pH Units VBG pCO2 (41-51) mmHg VBG pO2 (25-40) mmHg VBG HCO3 (21-27) mEq/L Sodium 134 L (136-145) mEq/L Potassium 4.5 (3.5-4.5) mEq/L Chloride 107 (98-109) mEq/L Carbon Dioxide 10 L* (19-29) mEq/L BUN 15 (7-20) mg/dL Creatinine 1.20 H (0.57-1.11) mg/dL Est GFR ( Amer) > 60 (> 60) Est GFR (Non-Af Amer) 56 L (> 60) BUN/Creatinine Ratio 13 (6-26) Glucose 82 (70-99) mg/dL Est Mean Plasma Glucose > 355 mg/dl Hemoglobin A1c >= 14.1 H ( - 5.6) % Calculated Osmolality 278 L (280-300) Lactic Acid (0.5-2.2) mmol/L Calcium 9.7 (8.6-10.8) mg/dL Phosphorus 3.1 (2.3-4.7) mg/dL Magnesium 2.0 (1.6-2.6) mg/dL Total Bilirubin 0.3 (0.2-1.2) mg/dL AST 18 (5-34) Units/L ALT 19 (0-55) Units/L Alkaline Phosphatase 106 (38-126) Units/L Serum Total Protein 8.9 H (6.0-8.3) g/dL Albumin 4.3 (3.5-5.0) g/dL Globulin 4.6 H (2.4-3.5) g/dL Albumin/Globulin Ratio 0.9 L (1.1-2.2) Beta-Hydroxybutyric Acd > 2.00 H (0.02-0.27) mmol/L Urine Color (Yellow) Urine Clarity (Clear) Urine pH (5.0-8.0) pH Units Ur Specific [place] (1.010-1.025) Urine Protein (Neg-Trace) mg/dL Urine Glucose (UA) (Normal) mg/dL Urine Ketones (Negative) mg/dL Urine Blood (Negative) Urine Nitrite (Negative) Urine Bilirubin (Negative) Urine Urobilinogen (Normal) mg/dL Ur Leukocyte Esterase (Negative) 05/19/17 05/19/17 05/20/17 Range/Units 22:40 22:40 02:50 WBC (4.3-11.1) K/mcL RBC (3.82-4.97) M/mcL Hgb (11.5-15.4) g/dL Hct (35.3-44.9) % MCV (83.0-100.0) fL MCH (28.0-33.3) pg MCHC (31.6-35.5) g/dL RDW (11.5-14.5) % Plt Count (140-400) K/mcL MPV (9.4-12.4) fL Immature Gran % (0-4) % Seg Neutrophils % % Lymphocytes % % Monocytes % % Eosinophils % % Basophils % % Neutrophils # (1.6-8.9) K/mcL Lymphocytes # (0.6-4.6) K/mcL Monocytes # (0.0-1.3) K/mcL Eosinophils # (0.0-0.6) K/mcL Basophils # (0.0-0.2) K/mcL VBG pH 7.14 L* (7.32-7.42) pH Units VBG pCO2 37 L (41-51) mmHg VBG pO2 38 (25-40) mmHg VBG HCO3 12.6 L (21-27) mEq/L Sodium (136-145) mEq/L Potassium (3.5-4.5) mEq/L Chloride (98-109) mEq/L Carbon Dioxide (19-29) mEq/L BUN (7-20) mg/dL Creatinine (0.57-1.11) mg/dL Est GFR ( Amer) (> 60) Est GFR (Non-Af Amer) (> 60) BUN/Creatinine Ratio (6-26) Glucose (70-99) mg/dL Est Mean Plasma Glucose mg/dl Hemoglobin A1c ( - 5.6) % Calculated Osmolality (280-300) Lactic Acid 1.8 (0.5-2.2) mmol/L Calcium (8.6-10.8) mg/dL Phosphorus (2.3-4.7) mg/dL Magnesium (1.6-2.6) mg/dL Total Bilirubin (0.2-1.2) mg/dL AST (5-34) Units/L ALT (0-55) Units/L Alkaline Phosphatase (38-126) Units/L Serum Total Protein (6.0-8.3) g/dL Albumin (3.5-5.0) g/dL Globulin (2.4-3.5) g/dL Albumin/Globulin Ratio (1.1-2.2) Beta-Hydroxybutyric Acd (0.02-0.27) mmol/L Urine Color Yellow (Yellow) Urine Clarity Cloudy A (Clear) Urine pH 6.0 (5.0-8.0) pH Units Ur Specific [place] 1.017 (1.010-1.025) Urine Protein 100 H (Neg-Trace) mg/dL Urine Glucose (UA) 250 H (Normal) mg/dL Urine Ketones 80 H (Negative) mg/dL Urine Blood Small H (Negative) Urine Nitrite Negative (Negative) Urine Bilirubin Large H (Negative) Urine Urobilinogen Normal (Normal) mg/dL Ur Leukocyte Esterase Small H (Negative) - Radiology Data Radiology results reviewed: Yes I reviewed the patient's radiology results. Chest x-ray is negative for acute pathology Critical Care Time Critical Care Time: Yes Total Critical Care Time: 45 Attestation: Critical care performed: Time is exclusive of separately billable procedures. Time includes: direct patient care, patient reassessment, coordination of patient care, interpretation of data (laboratory data, radiology data, and respiratory data), review of patient's medical records, medical consultation and documentation of patient care. Procedures included in critical care time: Procedures excluded from critical care time:
[2017-05-20] MEDS: 0.9 % Sodium Chloride 1,000 ML IVC SCH (01:17)
[2017-05-20] MEDS: D5% in 0.45% NACL w KCl 20 MEQ/1,000 ML MLS IVC SCH ×2 (01:18→14:21)
[2017-05-20 03:06] LABS: Bilirubin,Urine Large (Negative); Blood,Urine Small (Negative); Clarity,Urine Cloudy (Clear); Color,Urine Yellow (Yellow); Glucose,Urine (UA) 250 mg/dL (Normal); Ketones,Urine 80 mg/dL (Negative); Leukocyte Esterase,Urine Small (Negative); Nitrite,Urine Negative (Negative); Protein,Urine 100 mg/dL (Neg-Trace); Specific Gravity,Urine 1.017 (1.010-1.025); Urobilinogen,Urine Normal (Normal)
[2017-05-20 03:08] LABS: RBC,Urine 0-3 per hpf (0-3); Squamous Epithelial Cell,Urine Many per lpf (None-Few); WBC,Urine 15-30 per hpf (0-3)
[2017-05-20 03:22] LABS: Bacteria,Urine Few per hpf (None-Few); Hyaline Casts,Urine Moderate per lpf (None-Few); Mucus,Urine Few (Few)
--- NOTE | 2017-05-20 03:51 | Internal Med History&Physical ---
<Jah Nelson - Last Filed: 05/20/17 04:56> Date of Encounter: 05/20/17 Time of Encounter: 03:46 Assessment and Plan (1) Diabetic ketoacidosis Current visit: Yes Status: Acute Patient is euglycemic upon admission, suggesting ketoacidosis is secondary to dehydration/starvation but cannot rule out euglycemic DKA She has an anion gap of 17 and bicarb of 10 with ketones in serum/urine Start on low dose sliding scale SQ insulin q4hr with accuchecks NPO for now, support with anti-emetics and aggressive fluid hydration with D5 1/ 2 saline with 20 KCl Check BMP q6hr to closely monitor electrolytes and resolution of kidney injury No urgent need to start on insulin drip given risk of hypoglycemia, but may consider if repeat sugars are > 250 Qualifiers: Diabetes mellitus type: other specified (including JUANA) Diabetes mellitus complication detail: without coma Qualified Code(s): E13.10 - Other specified diabetes mellitus with ketoacidosis without coma (2) RITA (acute kidney injury) Current visit: Yes Status: Acute Likely pre-renal secondary to dehydration/starvation Monitor Cr closely and replete electrolytes as necessary Measure I/O's (3) High anion gap metabolic acidosis Current visit: Yes Status: Acute Secondary to ketoacidosis from starvation/DKA Administer aggressive fluid hydration with D5 1/2 saline Monitor BMP for resolution of gap (4) Type 1 diabetes mellitus Current visit: Yes Status: Chronic Patient does have history of non-compliance with her insulin and A1c checked today was >14 She certainly needs proper diabetic education in addition to adjustment of her insulin regimen upon discharge, as she claims to never check her blood sugars and takes her insulin only prior to meals and adjusts her doses only depending on how she feels Qualifiers: Diabetes mellitus complication status: with unspecified complications Qualified Code(s): E10.8 - Type 1 diabetes mellitus with unspecified complications (5) Leukocytosis Current visit: No Status: Acute Likely secondary to stress response vs. viral gastroenteritis; no indication for antibiotics at this time Will monitor with daily CBCs Qualifiers: Leukocytosis type: unspecified Qualified Code(s): D72.829 - Elevated white blood cell count, unspecified (6) DVT prophylaxis Current visit: No Status: Acute Heparin 5000 units BID Internal Medicine - H&P: HPI Chief complaint: vomiting Admitted From: Home Plans for Post Hospital Care: Home History of present illness: Ms. Knowles is a 21 year old female who presents with nausea and vomiting for the last two days. She states that she feels like she is in DKA as she has been admitted here in the past for it. She describes having roughly 15 episodes of non-bloody vomiting that was not associated with food. She abruptly stopped taking her insulin 2 days ago for no specific reason and states she does not have anything at home to check her blood sugars with. She denies any chest pain , shortness of breath, fevers, diarrhea, constipation, or urinary symptoms. She normally administers insulin 3 times a day prior to meals but only adjusts the dose depending on how she feels. Denies any recent illness, sick contacts, or changes in medication or diet. She lives at home with her sister. Past Med Surg Social Fam HX - Past Medical History Medical history: diabetes Psychiatric history: no psych history - Past Surgical History Surgical History: other - Social History Smoking Status: Never smoker Smokeless Tobacco Status: No Alcohol use: none Drug use: none - Family History Mother Adopted: No Living Status: Still Living Internal Medicine - H&P: Meds Insulin LISPRO [Humalog] 10 - 15 unit SQ TIDWM MDD Sliding Scale 10/31/15 [ History] Insulin Glargine [Lantus] 15 unit SQ BID 30 Days 11/13/16 [Rx] Fluconazole [Diflucan] 150 mg PO DAILY #1 tab 02/04/17 [Rx] Allergies Amoxicillin Allergy (Verified 05/19/17 21:30) Hives All Systems PM: A 10-system review of systems was performed and is negative for pertinent findings except as documented above in the HPI. - Constitutional Constitutional: no chills, no fever(s), no night sweats - EENT Eyes: no change in vision, no discharge, no pain, no photophobia Ears: no ear discharge, no ear pain, no tinnitus Nose, mouth and throat: no dysphagia, no nasal discharge, no neck pain, no sore throat - Cardiovascular Cardiovascular ROS IM: no chest pain, no diaphoresis, no dyspnea, no lightheadedness, no palpitations, no syncope - Respiratory Respiratory: no cough, no dyspnea, no wheezing, no excessive phlegm production - Gastrointestinal Gastrointestinal: nausea, vomiting, no abdominal pain, no diarrhea, no hematemesis, no hematochezia, no melena - Genitourinary Genitourinary: no change in urinary stream, no dysuria, no flank pain, no hematuria - Musculoskeletal Musculoskeletal ROS IM: no numbness, no tingling - Integumentary Integumentary IM: no rash, no unusual bruising - Neurological Neurological ROS: no confusion, no convulsions, no focal weakness, no numbness, no tingling, no tremor(s) - Hematologic/Lymphatic Hematologic/Lymphatic: no easy bruising - Constitutional Vitals: Temp Pulse Resp BP Pulse Ox 98.4 F 106 20 97/69 99 05/19/17 21:27 05/20/17 00:29 05/20/17 03:40 05/20/17 03:40 05/20/17 00:29 General appearance: Present: cooperative, pleasant, no acute distress, answers questions appropriately Exam: appears lethargic but is appropriate and alert - Head Head exam: Present: atraumatic, normocephalic - Eye Eye exam: Present: PERRL, conjuntiva pink, sclera anicteric - Neck Neck exam general surgery: Present: supple, trachea midline. Absent: lymphadenopathy - Respiratory Respiratory exam: Present: CTAB. Absent: accessory muscle use, rales, rhonchi, wheezes - Cardiovascular Cardiovascular exam: Present: RRR, +S1, +S2. Absent: diastolic murmur, gallop, rubs, systolic murmur - GI/Abdominal GI/Abdominal exam: Present: normal bowel sounds, soft, no peritoneal signs. Absent: distended, firm, guarding, tenderness - Extremities Exam Extremities exam: Present: warm, radial pulses palpable and symetrical. Absent : calf tenderness, cyanotic, pedal edema - Neurological Exam Neurological exam: Present: alert, no focal deficits. Absent: facial droop, speech deficit - Skin Skin exam: Present: dry, intact Internal Med - H&P Results - Labs CBC & Chem 7: 05/19/17 22:40 05/19/17 22:40 <Ez Perea - Last Filed: 05/20/17 05:37> Date of Encounter: 05/20/17 Internal Medicine - H&P: HPI History of present illness: Ms. Knowles is a 21 year old female All Systems PM: A 10-system review of systems was performed and is negative for pertinent findings except as documented above in the HPI. - Constitutional Vitals: Temp Pulse Resp BP Pulse Ox 98.6 F 98 20 100/67 18 05/20/17 04:06 05/20/17 04:31 05/20/17 03:40 05/20/17 04:06 05/20/17 04:06 Internal Med - H&P Results - Labs CBC & Chem 7: 05/19/17 22:40 05/20/17 04:37 Labs: BMP 05/20/17 04:37 Sodium 134 L Potassium 4.1 Chloride 109 Carbon Dioxide 9 L* BUN 9 Creatinine 0.99 Glucose 184 H Calcium 8.7 - ABG Interpretation ABG results: 05/20/17 04:37 VBG pH 7.19 L* VBG pCO2 28 L VBG pO2 44 H VBG HCO3 10.7 L - Attending Attestation I examined this patient and my medical decision-making was reviewed with the Resident Physician, Dr. Nelson. I agree with the documented findings, disposition and treatment plan as described except to the extent set forth below. I have independently obtained history and examined the patient and my findings are summarized below: Patient presented with 2 days of nausea and vomiting, her typical symptoms of DKA. She is noncompliant with her insulin. She has had multiple admissions for DKA. On exam she is in no acute distress. Heart is regular, lungs are clear. Plan: For DKA versus starvation ketoacidosis we will treat patient with IV fluids, IV glucose. Hold insulin for now. Initiate insulin only if glucose level is above 250. Recheck metabolic panel and a VBG.
[2017-05-20] MEDS ORDERED: Naloxone 0.4 MG/ML INJ IVP PRN (04:52)
[2017-05-20] MEDS ORDERED: Dextrose Gel 15 GM PO PRN ×2 (04:52)
[2017-05-20] MEDS ORDERED: D5% in Water 1,000 ML IVC PRN ×2 (04:52→18:04)
[2017-05-20] MEDS ORDERED: Acetaminophen 325 MG TABLET PO PRN (04:52)
[2017-05-20] MEDS ORDERED: Ondansetron 4 MG/2 ML VIAL IVP PRN (04:52)
[2017-05-20] MEDS ORDERED: *HR* Dextrose 50 % in Water (Syg) 50 ML SYRINGE IVP PRN ×2 (04:52→08:50)
[2017-05-20] MEDS ORDERED: *HR* Promethazine 25 MG/ML VIAL IVP PRN (04:52)
[2017-05-20 04:59] LABS: VBG HCO3 10.7 mEq/L (21-27)
[2017-05-20 05:10] LABS: BUN/Creatinine Ratio 9 (6-26); Blood Urea Nitrogen 9 mg/dL (7-20); Calcium 8.7 mg/dL (8.6-10.8); Chloride 109 mEq/L (98-109); Glucose 184 mg/dL (70-99); Magnesium 1.9 mg/dL (1.6-2.6); Osmolality,Calculated 281 (280-300); Phosphorous 2.4 mg/dL (2.3-4.7); Potassium 4.1 mEq/L (3.5-4.5); Sodium 134 mEq/L (136-145); eGFR For African Americans > 60 (> 60); eGFR For Non-African Americans > 60 (> 60)
[2017-05-20 05:19] LABS: VBG PH 7.19 pH Units (7.32-7.42)
[2017-05-20 05:22] LABS: Carbon Dioxide 9 mEq/L (19-29)
[2017-05-20] MEDS: Pantoprazole 40 MG VIAL IVP SCH (05:32)
[2017-05-20] MEDS: *HR* Heparin 5,000 UNIT/ML VIAL SQ SCH ×2 (05:32→18:19)
[2017-05-20 05:51] LABS: Basophils % 0.2 %; Hematocrit 44.9 % (35.3-44.9); Hemoglobin 14.9 g/dL (11.5-15.4); Immature Granulocytes % 0.6 % (0-4); Immature Platelets 3.1 % (1.1-6.1); Lymphocytes # 3.5 K/mcL (0.6-4.6); Lymphocytes % 17.4 %; Mean Corpuscular HGB Conc 33.2 g/dL (31.6-35.5); Mean Corpuscular Hemoglobin 29.2 pg (28.0-33.3); Mean Platelet Volume 10.1 fL (9.4-12.4); Monocytes # 1.5 K/mcL (0.0-1.3); Monocytes % 7.6 %; Platelet Count 327 K/mcL (140-400); Segmented Neutrophils % 74.2 %
[2017-05-20] MEDS ORDERED: Insulin LISPRO 300 UNITS/3 ML VIAL SQ SCH ×2 (08:00→21:00)
[2017-05-20] MEDS ORDERED: Insulin Human Regular 100 UNIT in 0.9 % Sodium Chloride 100 ML IVC SCH (08:30)
[2017-05-20] MEDS ORDERED: D5% in 0.45% NACL w KCl 20 MEQ/1,000 ML MLS IVC SCH (09:00)
[2017-05-20] MEDS: D5% in 0.45% NACL w KCl 10 MEQ/1,000 ML MLS IVC SCH ×4 (09:06→16:22)
[2017-05-20 09:48] LABS: BUN/Creatinine Ratio 6 (6-26); Blood Urea Nitrogen 7 mg/dL (7-20); Calcium 8.9 mg/dL (8.6-10.8); Chloride 107 mEq/L (98-109); Glucose 352 mg/dL (70-99); Osmolality,Calculated 288 (280-300); Sodium 133 mEq/L (136-145); eGFR For African Americans > 60 (> 60); eGFR For Non-African Americans 60 (> 60)
[2017-05-20 09:51] LABS: Carbon Dioxide 7 mEq/L (19-29)
[2017-05-20] MEDS: Insulin Human Regular 100 UNIT in 0.9 % Sodium Chloride 100 ML IVC SCH ×2 (09:56→16:56)
[2017-05-20] MEDS ORDERED: Insulin Regular, Human 100 UNIT/ML IV PRN (11:13)
[2017-05-20 14:04] LABS: BUN/Creatinine Ratio 6 (6-26); Blood Urea Nitrogen 7 mg/dL (7-20); Chloride 110 mEq/L (98-109); Glucose 276 mg/dL (70-99); Osmolality,Calculated 286 (280-300); Potassium 4.1 mEq/L (3.5-4.5); Sodium 134 mEq/L (136-145); eGFR For African Americans > 60 (> 60); eGFR For Non-African Americans 59 (> 60)
[2017-05-20 14:08] LABS: Carbon Dioxide 10 mEq/L (19-29)
--- NOTE | 2017-05-20 15:52 | Internal Med Progress Note ---
Date of Encounter: 05/20/17 Time of Encounter: 09:00 - Assessment and plan (1) Diabetic ketoacidosis Current Visit: Yes Status: Acute Assessment and plan: Patient's still have acidosis. Will continue IV fluid along with insulin drip. Closely monitor patient. - Patient's symptoms has improved. Patient is at high risk because she is on insulin drip, need close monitoring. Qualifiers: Diabetes mellitus type: type 1 Diabetes mellitus complication detail: without coma Qualified Code(s): E10.10 - Type 1 diabetes mellitus with ketoacidosis without coma (2) Leukocytosis Current Visit: No Status: Acute Assessment and plan: Most likely reactive. Patient has a mild UTI, Rocephin IV has placed. Qualifiers: Leukocytosis type: leukemoid reaction Qualified Code(s): D72.823 - Leukemoid reaction (3) DVT prophylaxis Current Visit: No Status: Acute Assessment and plan: Patient is young and ambulating well. No anticoagulation placed (4) Type 1 diabetes mellitus Current Visit: Yes Status: Chronic Assessment and plan: Now patient on insulin drip. Qualifiers: Diabetes mellitus complication status: with unspecified complications Qualified Code(s): E10.8 - Type 1 diabetes mellitus with unspecified complications (5) RITA (acute kidney injury) Current Visit: Yes Status: Acute Assessment and plan: Probably due to the dehydration caused by nausea and vomiting and DKA. Continue IV fluid and follow-up her renal function. (6) UTI (urinary tract infection) Current Visit: Yes Status: Acute Assessment and plan: Place patient on Rocephin IV. Follow-up urine culture. Continue hydrate patient. Qualifiers: Urinary tract infection type: acute cystitis Hematuria presence: without hematuria Qualified Code(s): N30.00 - Acute cystitis without hematuria - Time Spent With Patient Greater than 35 minutes - Subjective Interval history: Patient is a 21-year-old female admitted for DKA. Her past medical history is significant for type 1 diabetes. Patient was seen and examined. Her nausea vomiting has resolved. Denies abdominal pain. Her vital signs stable except mild tachycardia. Labs showed acidosis with high anion gap. Anion gap level trended down. We will continue hydrate the patient, since the patient's glucose level is not high with concurrent use D5 along with insulin drip. Closely monitor glucose, anion gap, potassium level, and renal function. - Constitutional Vitals: Temp Pulse Resp BP Pulse Ox 98.1 F 104 16 102/64 100 05/20/17 14:59 05/20/17 14:59 05/20/17 14:59 05/20/17 14:59 05/20/17 14:59 General appearance: Present: cooperative, A&O X 3, pleasant, no acute distress, answers questions appropriately - Head Head exam: Present: atraumatic, normocephalic - Eye Eye exam: Present: PERRL, conjuntiva pink, sclera anicteric Pupils: Present: PERRL - Neck Neck exam general surgery: Present: supple, trachea midline. Absent: lymphadenopathy - Respiratory Respiratory exam: Present: CTAB. Absent: accessory muscle use, rales, rhonchi, wheezes - Cardiovascular Cardiovascular exam: Present: RRR, +S1, +S2. Absent: diastolic murmur, gallop, rubs, systolic murmur - GI/Abdominal GI/Abdominal exam: Present: normal bowel sounds, soft, no peritoneal signs. Absent: distended, tenderness - Extremities Exam Extremities exam: Present: warm, radial pulses palpable and symetrical. Absent : calf tenderness, cyanotic, pedal edema - Neurological Exam Neurological exam: Present: CN II-XII intact, oriented X3, no focal deficits. Absent: pronater drift, facial droop, speech deficit - Skin Skin exam: Present: dry, intact Internal Medicine: Result - Labs CBC & Chem 7: 05/20/17 05:31 05/20/17 13:20 Labs: Short CBC 05/20/17 Range/Units 05:31 WBC 20.2 H (4.3-11.1) K/mcL Hgb 14.9 D (11.5-15.4) g/dL Hct 44.9 (35.3-44.9) % Plt Count 327 (140-400) K/mcL Neutrophils # 15.0 H (1.6-8.9) K/mcL BMP 05/20/17 05/20/17 05/20/17 04:37 09:22 13:20 Sodium 134 L 133 L 134 L Potassium 4.1 4.0 4.1 Chloride 109 107 110 H Carbon Dioxide 9 L* 7 L* 10 L* BUN 9 7 7 Creatinine 0.99 1.14 H 1.15 H Glucose 184 H 352 H 276 H Calcium 8.7 8.9 9.0 Consult Discharge Plan - Plan Referrals: Fay Romero DO [Resident] - 05/27/17 10:00 am (Please show up for this appointment. If you have to cancel please call [phone] and cancel within 24 hours of your appointment)
[2017-05-20] MEDS ORDERED: D5% in 0.45% NACL w KCl 10 MEQ/1,000 ML MLS IVC SCH (16:00)
[2017-05-20 17:25] LABS: BUN/Creatinine Ratio 6 (6-26); Blood Urea Nitrogen 6 mg/dL (7-20); Carbon Dioxide 14 mEq/L (19-29); Chloride 112 mEq/L (98-109); Glucose 183 mg/dL (70-99); Osmolality,Calculated 278 (280-300); Potassium 3.1 mEq/L (3.5-4.5); Sodium 133 mEq/L (136-145); eGFR For African Americans > 60 (> 60); eGFR For Non-African Americans > 60 (> 60)
[2017-05-20] MEDS ORDERED: Potassium Chloride 40 MEQ, Lidocaine 1% 2 ML in D5% in Water 500 ML IVPB ONE (18:03)
[2017-05-20] MEDS ORDERED: Insulin DETEMIR 100 UNIT/ML X5UNITS SQ SCH (21:00)
[2017-05-21 05:02] LABS: Basophils # 0.1 K/mcL (0.0-0.2); Basophils % 0.5 %; Eosinophils % 0.2 %; Hematocrit 42.3 % (35.3-44.9); Hemoglobin 14.1 g/dL (11.5-15.4); Immature Granulocytes % 0.4 % (0-4); Lymphocytes # 3.3 K/mcL (0.6-4.6); Lymphocytes % 30.7 %; Mean Corpuscular HGB Conc 33.3 g/dL (31.6-35.5); Mean Corpuscular Hemoglobin 28.8 pg (28.0-33.3); Mean Corpuscular Volume 86.3 fL (83.0-100.0); Monocytes # 0.8 K/mcL (0.0-1.3); Monocytes % 7.2 %; Neutrophils # 6.6 K/mcL (1.6-8.9); Platelet Count 290 K/mcL (140-400); Red Cell Distribution Width 12.4 % (11.5-14.5)
[2017-05-21 05:17] LABS: BUN/Creatinine Ratio 5 (6-26); Calcium 8.8 mg/dL (8.6-10.8); Carbon Dioxide 18 mEq/L (19-29); Chloride 110 mEq/L (98-109); Glucose 139 mg/dL (70-99); Osmolality,Calculated 279 (280-300); Sodium 135 mEq/L (136-145); eGFR For African Americans > 60 (> 60); eGFR For Non-African Americans > 60 (> 60)
[2017-05-21 05:18] LABS: Blood Urea Nitrogen 4 mg/dL (7-20); Potassium 3.5 mEq/L (3.5-4.5)
[2017-05-21] MEDS: Pantoprazole 40 MG VIAL IVP SCH (06:15)
[2017-05-21] MEDS: *HR* Heparin 5,000 UNIT/ML VIAL SQ SCH (06:15)
[2017-05-21] MEDS: Insulin LISPRO 300 UNITS/3 ML VIAL SQ SCH ×2 (08:02→12:31)
[2017-05-21] MEDS ORDERED: Insulin DETEMIR 100 UNIT/ML X5UNITS SQ SCH (09:00)
--- NOTE | 2017-05-21 10:34 | Discharge Summary ---
Date of Encounter: 05/21/17 Time of Encounter: 10:00 - Discharge Diagnosis (1) Diabetic ketoacidosis Priority: Primary Status: Acute Qualifiers: Diabetes mellitus type: type 1 Diabetes mellitus complication detail: without coma Qualified Code(s): E10.10 - Type 1 diabetes mellitus with ketoacidosis without coma (2) Leukocytosis Priority: Primary Status: Acute Qualifiers: Leukocytosis type: leukemoid reaction Qualified Code(s): D72.823 - Leukemoid reaction (3) DVT prophylaxis Priority: Secondary Status: Acute (4) Type 1 diabetes mellitus Priority: Primary Status: Chronic Qualifiers: Diabetes mellitus complication status: with unspecified complications Qualified Code(s): E10.8 - Type 1 diabetes mellitus with unspecified complications (5) RITA (acute kidney injury) Priority: Secondary Status: Acute (6) UTI (urinary tract infection) Priority: Primary Status: Acute Qualifiers: Urinary tract infection type: acute cystitis Hematuria presence: without hematuria Qualified Code(s): N30.00 - Acute cystitis without hematuria - Discharge Medications Home Medications: Insulin LISPRO [Humalog] 15 unit SQ TIDWM MDD Sliding Scale 10/31/15 [History] Alcohol Antiseptic Pads [Alcohol Pads] 1 each TP QID #300 med..pad 05/21/17 [Rx] Ciprofloxacin [Cipro] 250 mg PO BID #6 tablet 05/21/17 [Rx] Insulin Glargine [Lantus] 20 unit SQ BID #0 05/21/17 [Rx] Lancets/Blood Glucose Strips [Fora [id number] Strp-Lnct] 1 each MC QID # 200 combo..pkg 05/21/17 [Rx] Allergies/Adverse Reactions: Allergies Amoxicillin Allergy (Verified 05/19/17 21:30) Hives azithromycin Allergy (Verified 05/20/17 08:22) Hives Penicillins [PCN] Allergy (Verified 05/20/17 08:22) Hives - Notes to Outpatient Provider 1. Continue Cipro 250 mg by mouth twice a day for 3 more days for UTI. 2. Lantus dose has been changed to 20 units twice a day because patient seems has hypoglycemia on previous 30 units twice a day dose. Patient was educated to exam blood sugar before each meal and at bedtime and bring glucose log to PCP. Date of admission: 05/20/17 03:29 Primary care physician: PCP NONE Consults: 05/20/17 04:11 Consult to Nutrition [CONS] Routine Comment: Consulting Provider: NUTRITION Reason for Dietary Consult: MST Score 05/20/17 04:52 Consult to Mechanical Test Technician [CONS] Routine Comment: Reason for Consult: uncontrolled diabetes, non-compliant with insulin, recurrent admissions for DKA Discharging clinician: Adriana Nelson Anticipated date of discharge: 05/21/17 - Patient Status Disposition: Home, Self-Care Condition: Good Functional capacity at discharge: independent ambulation - Discharge Instructions Follow Up With: Fay Romero DO [Resident] - 05/27/17 10:00 am (Please show up for this appointment. If you have to cancel please call [phone] and cancel within 24 hours of your appointment) - Diet and Activity Activity: increase activity as tolerated Diet: diabetic diet Interval History: HPI: Ms. Knowles is a 21 year old female who presents with nausea and vomiting for the last two days. She states that she feels like she is in DKA as she has been admitted here in the past for it. She describes having roughly 15 episodes of non-bloody vomiting that was not associated with food. She abruptly stopped taking her insulin 2 days ago for no specific reason and states she does not have anything at home to check her blood sugars with. She denies any chest pain , shortness of breath, fevers, diarrhea, constipation, or urinary symptoms. She normally administers insulin 3 times a day prior to meals but only adjusts the dose depending on how she feels. Denies any recent illness, sick contacts, or changes in medication or diet. She lives at home with her sister. Hospital course: Ms. Knowles is a 21 year old female admitted for DKA. Patient was treated with IV fluid, IV insulin, she was closely monitored with glucose level, potassium level, and anion gap. After treatment, her DKA has resolved. Her diet has resumed, and the patient tolerated well. Glucose is stable. Diabetes education has been done bedside. Glucose meter and strips has been prescribed. We will discharge patient to home today. I saw and examined the patient today. She is awake alert, denies nausea, vomiting, or abdominal pain. Feels fine. Vitals are stable. We will discharge patient to home and closely monitor blood sugar level. Follow-up with PCP as outpatient (patient has no PCP, our resident clinic appointment has been established). Patient was found UTI, has minimal burning on urination. Urine culture negative, patient has been treated with Rocephin for 2 days. will prescribe the patient with the Cipro 250 mg by mouth twice a day for 3 more days, encourage patient to drink more water. - Time Spent with Patient Total time spent providing and/or coordinating discharge services: 25 min Less than 30 minutes - Constitutional Vitals: Temp Pulse Resp BP Pulse Ox 98.3 F 86 16 85/55 96 05/21/17 08:07 05/21/17 08:07 05/21/17 07:24 05/21/17 07:24 05/21/17 08:07 General appearance: Present: cooperative, A&O X 3, pleasant, no acute distress, answers questions appropriately - Head Head exam: Present: atraumatic, normocephalic - Eye Eye exam: Present: PERRL, conjuntiva pink, sclera anicteric Pupils: Present: PERRL - Neck Neck exam general surgery: Present: supple, trachea midline. Absent: lymphadenopathy - Respiratory Respiratory exam: Present: CTAB. Absent: accessory muscle use, rales, rhonchi, wheezes - Cardiovascular Cardiovascular exam: Present: RRR, +S1, +S2. Absent: diastolic murmur, gallop, rubs, systolic murmur - GI/Abdominal GI/Abdominal exam: Present: normal bowel sounds, soft, no peritoneal signs. Absent: distended, tenderness - Extremities Exam Extremities exam: Present: warm, radial pulses palpable and symetrical. Absent : calf tenderness, cyanotic, pedal edema - Neurological Exam Neurological exam: Present: CN II-XII intact, oriented X3, no focal deficits. Absent: pronater drift, facial droop, speech deficit - Skin Skin exam: Present: dry, intact
[2017-05-21 11:26] VITALS: BP 93/58
== END 2017-05-21 14:15 | disposition home or self-care (01) ==
LOC: EMEROO 20:51 → 2NNU 20:51
PROVIDERS: ADMIT Internal Medicine; ATTEND Internal Medicine

== ENCOUNTER 2017-10-26 09:46 | Inpatient (IN) ==
[2017-10-26] MEDS ORDERED: Ondansetron 4 MG/2 ML VIAL IVP ONE (10:12)
[2017-10-26] MEDS ORDERED: 0.9 % Sodium Chloride 1,000 ML IVC ONE ×3 (10:12→16:58)
--- NOTE | 2017-10-26 10:20 | Emergency Department Note ---
Disposition Clinical Impression: DKA, type 1 Qualifiers: Diabetes mellitus complication detail: without coma Qualified Code(s): E10.10 - Type 1 diabetes mellitus with ketoacidosis without coma UTI (urinary tract infection) Qualifiers: Urinary tract infection type: site unspecified Hematuria presence: without hematuria Qualified Code(s): N39.0 - Urinary tract infection, site not specified Pneumonia Qualifiers: Pneumonia type: due to unspecified organism Laterality: right Lung location: lower lobe of lung Qualified Code(s): J18.1 - Lobar pneumonia, unspecified organism Disposition: Admitted As Inpatient Condition: Fair General Adult HPI - General Chief complaint: ED Urogenital-Female Stated complaint: N/V Time Seen by Provider: 10/26/17 09:54 Source: patient Mode of arrival: ambulatory Limitations: no limitations Nursing Notes Reviewed: Yes Vital Signs Reviewed: Yes - History of Present Illness HPI Narrative: Patient is a 22-year-old female with past HISTORY of type 1 diabetes presents to murmurs department with the presentation of worsening urinary tract infection. The patient was seen on approximately 2 days ago for similar symptoms which she was found to have an anion gap of 15 and a beta hydroxybutyrate of 2 and was recommended to be admitted to the hospital and the patient refused at that time due to feeling improved after receiving fluids in the emergency department and she was sent home with an antibiotic prescription and antiemetic medication. The patient states that since that time she feels that she is not getting any better. She states that she still has nausea and vomiting with 5 episodes occurring last night and 2 episodes occurring this morning nonbloody and nonbilious. She states that she feels diffuse body aches she still has burning with urination. She denies any fevers, chills, chest pain , shortness of breath, vaginal discharge or diarrhea. She states that her sugars have been running fine over the past few weeks since she has had her glucometer to check. Pain Scale: 6 - Related Data Home Medications Medication Instructions Recorded Confirmed Insulin LISPRO [Humalog] 10 unit SQ TIDWM 10/31/15 10/26/17 Insulin Glargine [Lantus] 30 unit SQ BID 10/26/17 10/26/17 Ondansetron HCl [Zofran] 4 mg PO Q8HR PRN 10/26/17 10/26/17 Previous Rx's Medication Instructions Recorded Sulfamethoxazole/Trimeth DS 1 each PO BID #10 tablet 10/24/17 [Bactrim Ds] Allergies Allergy/AdvReac Type Severity Reaction Status Date / Time Amoxicillin Allergy Hives Verified 10/24/17 13:23 Penicillins [PCN] Allergy Hives Verified 10/24/17 13:23 All systems ED: reviewed and negative except as stated. Review of Systems: As Per HPI Constitutional: Reports: other (body aches). Denies: fever, chills Cardiovascular: Denies: chest pain, palpitations Respiratory: Denies: cough, dyspnea, wheezes, hemoptysis Gastrointestinal: Reports: abdominal pain (suprapubic), nausea, vomiting. Denies: diarrhea, hematemesis Genitourinary: Reports: dysuria. Denies: hematuria, discharge Musculoskeletal: Denies: back pain, neck pain Integumentary: Denies: rash Neurological: Reports: paresthesias. Denies: headache, weakness, numbness Endocrine: Reports: fatigue Past Medical History - Past Medical History Attestation: Yes The following information was validated with the patient. Medical history: Reports: diabetes Surgical history: Reports: other Psychiatric history: Reports: no psych history STRATEGY ASSOCIATE history: Reports: no STRATEGY ASSOCIATE history - Social History Smoking Status: Never smoker Smokeless Tobacco Status: No Alcohol use: Reports: none Drug use: Reports: none Physical Exam - General Limitations: no limitations General appearance: alert, in no apparent distress, other (Patient is overall ill-appearing. She still able to speak in full sentences and she is sitting up in bed.) - Head Head exam: atraumatic, normocephalic, normal inspection - Eye Eye exam: Present: normal appearance, PERRL, EOMI - ENT ENT exam: normal exam, normal oropharynx, mucous membranes dry - Neck Neck exam: Present: normal inspection, full ROM, trachea midline - Chest Chest inspection: Present: normal inspection, symmetric chest wall rise - Respiratory Respiratory exam: Present: normal lung sounds bilaterally. Absent: respiratory distress - Cardiovascular Cardiovascular exam: Present: regular rate, normal rhythm, normal heart sounds, +S1, +S2 - Abdominal Exam Abdominal exam: Present: soft, tenderness, normal bowel sounds. Absent: guarding, rebound, rigidity Abdominal tenderness: Present: suprapubic - Extremities Exam Extremities exam: Present: normal inspection, full ROM, normal capillary refill. Absent: tenderness, pedal edema - Back Exam Back exam: Present: normal inspection, full ROM. Absent: tenderness, CVA tenderness (R), CVA tenderness (L) - Neurological Exam Neurological exam: Present: alert, oriented X3 - Psychiatric Psychiatric exam: Present: normal affect, normal mood - Skin Skin exam: Present: warm, dry, intact, normal color Course Course Narrative: Patient's presenting with complaints of nausea and vomiting and worsening urinary tract infection which she was seen for previously in the past couple of days and decided to go home to complete treatment at that time after receiving a liter fluids and feeling improved. Plan for this patient is to work her up for possible DKA as well as a ongoing urinary tract infection which she has received a couple doses of Bactrim for. Patient's point of care glucose here was in the 250s, her pH was 7.12, beta hydroxybutyrate acid levels were measured at greater than 2.0. The patient was started on DKA protocol sheet was initiated on an insulin drip, no potassium was R this time due to being 3.5. Patient's chest x-ray did show a possible pneumonia so plan is to treat the patient with IV ceftriaxone and azithromycin to cover for urinary tract infection as well as for pneumonia. The plan is to admit the patient for continued treatment of her DKA, UTI, and pneumonia. Vital Signs Temperature 97.6 F 10/26/17 09:48 Pulse Rate 115 10/26/17 09:48 Respiratory Rate 16 10/26/17 09:48 Blood Pressure 118/82 10/26/17 09:48 O2 Sat by Pulse Oximetry 98 10/26/17 09:48 Temperature 98.0 F 10/27/17 11:37 Pulse Rate 93 10/27/17 11:37 Respiratory Rate 16 10/27/17 11:37 Blood Pressure 93/68 10/27/17 11:37 O2 Sat by Pulse Oximetry 100 10/27/17 11:37 Oxygen Delivery Oxygen Delivery Room Air Medical Decision Making - Medical Records Medical records reviewed: Yes I reviewed the patient's medical records. - Lab Data Lab results reviewed: Yes I reviewed the patient's lab results. Result diagrams: 10/26/17 10:29 10/27/17 06:02 Lab Results 10/26/17 10/26/17 10/26/17 Range/Units 09:59 09:59 10:29 WBC (4.3-11.1) K/mcL RBC (3.82-4.97) M/mcL Hgb (11.5-15.4) g/dL Hct (35.3-44.9) % MCV (83.0-100.0) fL MCH (28.0-33.3) pg MCHC (31.6-35.5) g/dL RDW (11.5-14.5) % Plt Count (140-400) K/mcL MPV (9.4-12.4) fL Immature Gran % (0-4) % Seg Neutrophils % % Lymphocytes % % Monocytes % % Eosinophils % % Basophils % % Neutrophils # (1.6-8.9) K/mcL Lymphocytes # (0.6-4.6) K/mcL Monocytes # (0.0-1.3) K/mcL Eosinophils # (0.0-0.6) K/mcL Basophils # (0.0-0.2) K/mcL VBG pH (7.32-7.42) pH Units VBG pCO2 (41-51) mmHg VBG pO2 (25-50) mmHg VBG HCO3 (21-27) mEq/L Sodium 130 L (136-145) mEq/L Potassium 3.7 (3.5-5.1) mEq/L Chloride 99 (98-107) mEq/L Carbon Dioxide 10 L* (23-29) mEq/L BUN 7 (6-20) mg/dL Creatinine 0.82 (0.60-1.20) mg/dL Est GFR ( Amer) > 60 (> 60) Est GFR (Non-Af Amer) > 60 (> 60) BUN/Creatinine Ratio 9 (6-26) Glucose 374 H (70-105) mg/dL POC Glucose (58-89) Calculated Osmolality 283 (280-300) Calcium 9.2 (8.6-10.3) mg/dL Total Bilirubin 0.4 (0.3-1.0) mg/dL AST 17 (13-39) Units/L ALT 16 (7-52) Units/L Alkaline Phosphatase 135 H (34-104) Units/L Serum Total Protein 7.7 (6.4-8.9) g/dL Albumin 4.2 (3.5-5.7) g/dL Globulin 3.5 (2.4-3.5) g/dL Albumin/Globulin Ratio 1.2 (1.1-2.2) Lipase < 3 L (11-82) Units/L Beta-Hydroxybutyric Acd > 2.00 H (0.02-0.27) mmol/L Urine Color Yellow (Yellow) Urine Clarity Cloudy A (Clear) Urine pH 5.0 (5.0-8.0) pH Units Ur Specific Crawford > 1.030 H (1.010-1.025) Urine Protein 30 H (Neg-Trace) mg/dL Urine Glucose (UA) >=1000 H (Normal) mg/dL Urine Ketones >=160 H (Negative) mg/dL Urine Blood Moderate H (Negative) Urine Nitrite Negative (Negative) Urine Bilirubin Negative (Negative) Urine Urobilinogen Normal (Normal) mg/dL Ur Leukocyte Esterase Negative (Negative) Urine Microscopic RBC 15-30 H (0-3) per hpf Urine Microscopic WBC 30-50 H (0-3) per hpf Ur Squamous Epith Cells Many H (None-Few) per lpf Urine Bacteria None Seen (None-Few) per hpf Hyaline Casts Few (None-Few) per lpf Ur Culture Indicated? NO (NO) Urine Test Negative (Negative) Person Notif of Crit 10/26/17 10/26/17 10/26/17 Range/Units 10:29 11:43 14:09 WBC 11.3 H (4.3-11.1) K/mcL RBC 5.34 H (3.82-4.97) M/mcL Hgb 15.6 H (11.5-15.4) g/dL Hct 46.9 H (35.3-44.9) % MCV 87.8 (83.0-100.0) fL MCH 29.2 (28.0-33.3) pg MCHC 33.3 (31.6-35.5) g/dL RDW 12.5 (11.5-14.5) % Plt Count 255 (140-400) K/mcL MPV 10.7 (9.4-12.4) fL Immature Gran % 0.4 (0-4) % Seg Neutrophils % 75.9 % Lymphocytes % 14.6 % Monocytes % 8.7 % Eosinophils % 0.0 % Basophils % 0.4 % Neutrophils # 8.6 (1.6-8.9) K/mcL Lymphocytes # 1.7 (0.6-4.6) K/mcL Monocytes # 1.0 (0.0-1.3) K/mcL Eosinophils # 0.0 (0.0-0.6) K/mcL Basophils # 0.1 (0.0-0.2) K/mcL VBG pH 7.12 L* (7.32-7.42) pH Units VBG pCO2 27 L (41-51) mmHg VBG pO2 156 H (25-50) mmHg VBG HCO3 9 L (21-27) mEq/L Sodium (136-145) mEq/L Potassium (3.5-5.1) mEq/L Chloride (98-107) mEq/L Carbon Dioxide (23-29) mEq/L BUN (6-20) mg/dL Creatinine (0.60-1.20) mg/dL Est GFR ( Amer) (> 60) Est GFR (Non-Af Amer) (> 60) BUN/Creatinine Ratio (6-26) Glucose (70-105) mg/dL POC Glucose 344 H (58-89) Calculated Osmolality (280-300) Calcium (8.6-10.3) mg/dL Total Bilirubin (0.3-1.0) mg/dL AST (13-39) Units/L ALT (7-52) Units/L Alkaline Phosphatase (34-104) Units/L Serum Total Protein (6.4-8.9) g/dL Albumin (3.5-5.7) g/dL Globulin (2.4-3.5) g/dL Albumin/Globulin Ratio (1.1-2.2) Lipase (11-82) Units/L Beta-Hydroxybutyric Acd (0.02-0.27) mmol/L Urine Color (Yellow) Urine Clarity (Clear) Urine pH (5.0-8.0) pH Units Ur Specific Crawford (1.010-1.025) Urine Protein (Neg-Trace) mg/dL Urine Glucose (UA) (Normal) mg/dL Urine Ketones (Negative) mg/dL Urine Blood (Negative) Urine Nitrite (Negative) Urine Bilirubin (Negative) Urine Urobilinogen (Normal) mg/dL Ur Leukocyte Esterase (Negative) Urine Microscopic RBC (0-3) per hpf Urine Microscopic WBC (0-3) per hpf Ur Squamous Epith Cells (None-Few) per lpf Urine Bacteria (None-Few) per hpf Hyaline Casts (None-Few) per lpf Ur Culture Indicated? (NO) Urine Test (Negative) Person Notif of [facility] - Radiology Data Radiology results reviewed: Yes I reviewed the patient's radiology results. Chest X-Ray 10/26/17 11:11 IMPRESSION: Subtle opacity in the medial right lung base which could reflect atelectasis or pneumonia in the appropriate clinical setting. D/ / Grace Davis MD / Grace Davis MD Interpreting Provider: Grace Davis MD
[2017-10-26 10:22] LABS: Bilirubin,Urine Negative (Negative); Blood,Urine Moderate (Negative); Clarity,Urine Cloudy (Clear); Color,Urine Yellow (Yellow); Glucose,Urine (UA) >=1000 mg/dL (Normal); Ketones,Urine >=160 mg/dL (Negative); Leukocyte Esterase,Urine Negative (Negative); Nitrite,Urine Negative (Negative); Protein,Urine 30 mg/dL (Neg-Trace); Specific Gravity,Urine > 1.030 (1.010-1.025); Urobilinogen,Urine Normal (Normal)
[2017-10-26 10:25] LABS: Bacteria,Urine None Seen per hpf (None-Few); Squamous Epithelial Cell,Urine Many per lpf (None-Few); WBC,Urine 30-50 per hpf (0-3)
[2017-10-26 10:38] LABS: Hyaline Casts,Urine Few per lpf (None-Few); RBC,Urine 15-30 per hpf (0-3)
[2017-10-26 10:42] LABS: Beta-Hydroxybutyric Acid > 2.00 mmol/L (0.02-0.27)
[2017-10-26 10:56] LABS: Alanine Aminotransferase 16 Units/L (7-52); Albumin 4.2 g/dL (3.5-5.7); Albumin/Globulin Ratio 1.2 (1.1-2.2); Alkaline Phosphatase 135 Units/L (34-104); Aspartate Amino Transferase 17 Units/L (13-39); BUN/Creatinine Ratio 9 (6-26); Bilirubin,Total 0.4 mg/dL (0.3-1.0); Blood Urea Nitrogen 7 mg/dL (6-20); Calcium 9.2 mg/dL (8.6-10.3); Carbon Dioxide 10 mEq/L (23-29); Chloride 99 mEq/L (98-107); Globulin 3.5 g/dL (2.4-3.5); Glucose 374 mg/dL (70-105); Lipase < 3 Units/L (11-82); Osmolality,Calculated 283 (280-300); Potassium 3.7 mEq/L (3.5-5.1); Sodium 130 mEq/L (136-145); Total Protein 7.7 g/dL (6.4-8.9); eGFR For African Americans > 60 (> 60); eGFR For Non-African Americans > 60 (> 60)
[2017-10-26] MEDS ORDERED: Insulin Regular, Human 100 UNIT/ML IV STA (11:08)
--- NOTE | 2017-10-26 11:18 | Emergency Department Note ---
START Narrative - START START: I examined this patient and my medical decision-making was reviewed with the Resident Physician. I agree with the documented findings, disposition and treatment plan as described except to the extent set forth below. 22-year-old female with a history of DKA presents with elevated sugars and dehydration. Concerns for DKA here with elevated serum ketones as well as dehydration. Patient will be started on IV fluids as well as an IV insulin drip. Patient will be admitted. check UA as well and portable cxr critical care time was 35 minutes spent in medical resuscitation and IV fluids as well as insulin drip.
[2017-10-26 11:21] LABS: Basophils # 0.1 K/mcL (0.0-0.2); Basophils % 0.4 %; Hematocrit 46.9 % (35.3-44.9); Hemoglobin 15.6 g/dL (11.5-15.4); Immature Granulocytes % 0.4 % (0-4); Lymphocytes # 1.7 K/mcL (0.6-4.6); Lymphocytes % 14.6 %; Mean Corpuscular HGB Conc 33.3 g/dL (31.6-35.5); Mean Corpuscular Hemoglobin 29.2 pg (28.0-33.3); Mean Corpuscular Volume 87.8 fL (83.0-100.0); Mean Platelet Volume 10.7 fL (9.4-12.4); Monocytes % 8.7 %; Neutrophils # 8.6 K/mcL (1.6-8.9); Platelet Count 255 K/mcL (140-400); Red Blood Count 5.34 M/mcL (3.82-4.97); Red Cell Distribution Width 12.5 % (11.5-14.5); Segmented Neutrophils % 75.9 %
[2017-10-26 11:52] LABS: VBG HCO3 9 mEq/L (21-27); VBG PCO2 27 mmHg (41-51); VBG PH 7.12 pH Units (7.32-7.42); VBG PO2 156 mmHg (25-50)
[2017-10-26] MEDS ORDERED: *HR* Dextrose 50 % in Water (Syg) 50 ML SYRINGE IVP PRN ×2 (11:59→15:11)
[2017-10-26] MEDS ORDERED: Insulin Human Regular 100 UNIT in 0.9 % Sodium Chloride 100 ML IVC SCH ×2 (12:00→17:15)
[2017-10-26] MEDS ORDERED: Azithromycin 500 MG in D5% in Water 250 ML IVPB ONE (12:38)
[2017-10-26] MEDS ORDERED: 0.9 % Sodium Chloride 1,000 ML ONE (15:02)
[2017-10-26] MEDS ORDERED: Naloxone 0.4 MG/ML INJ IVP PRN (15:11)
[2017-10-26] MEDS ORDERED: Ondansetron 4 MG/2 ML VIAL IVP PRN (15:11)
[2017-10-26] MEDS: cefTRIAXone 1,000 MG in Water for inj. (sterile) 20 ML 10 ML IVP SCH (15:23)
--- NOTE | 2017-10-26 15:29 | Internal Med History&Physical ---
Date of Encounter: 10/26/17 Time of Encounter: 15:00 Assessment and Plan (1) Diabetic ketoacidosis Current visit: No Status: Acute 1. Will continue IVF and insulin drip per DKA protocol. 2. Hourly glucose checks. 3. STAT chemistry panel and Magnesium now, then q8h. 4. Adjust electrolytes as necessary. 5. npo until anion gap closed, at which point patient can start to feed and we can transition to SubQ insulin. Qualifiers: Diabetes mellitus type: type 1 Diabetes mellitus complication detail: without coma Qualified Code(s): E10.10 - Type 1 diabetes mellitus with ketoacidosis without coma (2) Pneumonia Current visit: Yes Status: Suspected 1. Blood culture drawn. 2. Will start Levaquin tomorrow (to treat both pneumonia and UTI). Patient received Rocephin and Zithromax in ER today. 3. IVF and supportive measures as needed. 4. Currently without oxygen requirement. Qualifiers: Pneumonia type: due to unspecified organism Laterality: right Lung location: middle lobe of lung Qualified Code(s): J18.1 - Lobar pneumonia, unspecified organism (3) UTI (urinary tract infection) Current visit: No Status: Acute 1. Patient failed outpatient treatment; also likely culprit for DKA. 2. IVF and IV antibiotics as above. 3. Organism isolated from ER visit on 10/24/17. Qualifiers: Urinary tract infection type: site unspecified Hematuria presence: without hematuria Qualified Code(s): N39.0 - Urinary tract infection, site not specified (4) DVT prophylaxis Current visit: Yes Status: Acute 1. Heparin SQ. Internal Medicine - H&P: HPI Chief complaint: nausea, vomitiing, UTI Admitted From: Emergency Dept Plans for Post Hospital Care: Home History of present illness: Ms. Knowles is a 22 year old female who presents with a 2 to 3-day history of nausea, vomiting, dysuria, and worsening glucose control. She was seen in the ER a few days ago and diagnosed with UTI. At that time, she did not have any evidence of DKA. She was discharged home on Bactrim, which she has been taking regularly. Her UTI symptoms started to improve somewhat, but the nausea and vomiting worsened. Because of protracted symptoms, she came to the ER where she was found to have evidence of DKA and ongoing UTI. She has had some fevers and chills as well as fatigue. She has had a dry cough but no productive sputum. X-ray did show some questionable pneumonia. She denies any abdominal pain or chest pain. In the ER, she received IV fluid bolus 2 and initiation of insulin drip. I just ordered stat repeat labs which are pending at this time. Patient states she feels much better after her fluid bolus. Current glucose is 344. Patient was last admitted in April of this year for DKA. She states her glucose control is poor and averages about 200-300. 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 She had been on an insulin pump in the past, but that was when she was a young teenager. Past Med Surg Social Fam HX - Past Medical History Attestation: Yes The following information was validated with the patient. Source: patient, old records reviewed Medical history: diabetes Psychiatric history: no psych history - Past Surgical History Surgical History: no surgical history - Social History Smoking Status: Never smoker Smokeless Tobacco Status: No Alcohol use: none Drug use: none Current living situation: Home, With Family Activity Level: Independent ambulation Recent Out of Country Travel Within the Last 8 Weeks: No - Family History Mother Adopted: No Living Status: Still Living Hx Family Endocrine Disorder: No Sister Living Status: Still Living Hx Family Endocrine Disorder: No Internal Medicine - H&P: Meds Insulin LISPRO [Humalog] 10 unit SQ TIDWM 10/31/15 [History] Sulfamethoxazole/Trimeth DS [Bactrim DS] 1 each PO BID #10 tablet 10/24/17 [Rx] Insulin Glargine [Lantus] 30 unit SQ BID 10/26/17 [History] Ondansetron HCl [Zofran] 4 mg PO Q8HR PRN 10/26/17 [History] 3 Allergy/AdvReac Type Severity Reaction Status Date / Time Amoxicillin Allergy Hives Verified 10/24/17 13:23 Penicillins [PCN] Allergy Hives Verified 10/24/17 13:23 - Constitutional Constitutional: chills, fever(s), malaise, weakness - EENT Eyes: no blurry vision, no change in vision Ears: no ear pain, no tinnitus Nose, mouth and throat: no nasal congestion, no sinus pressure, no sore throat - Cardiovascular Cardiovascular ROS IM: no chest pain, no dyspnea, no dyspnea on exertion, no palpitations - Respiratory Respiratory: cough, no hemoptysis, no dyspnea on exertion, no wheezing, no chest congestion, no excessive phlegm production, no change in phlegm color, no pain with cough - Gastrointestinal Gastrointestinal: constipation, nausea, vomiting, no abdominal pain, no diarrhea , no hematemesis, no hematochezia, no melena - Genitourinary Genitourinary: dysuria, urinary frequency, urinary urgency, no flank pain, no hematuria - Musculoskeletal Musculoskeletal ROS IM: no arthralgias, no back pain, no muscle cramps, no muscle weakness - Integumentary Integumentary IM: no rash, no jaundice - Neurological Neurological ROS: no dizziness, no focal weakness, no frequent falls, no headache(s) - Psychiatric Psychiatric: no anxiety, no depression - Endocrine Endocrine IM: polydipsia, polyuria, no cold intolerance, no heat intolerance, no polyphagia - Hematologic/Lymphatic Hematologic/Lymphatic: no easy bruising, no lymphadenopathy - Allergic/Immunologic Allergic/Immunologic: no GI upset with certain foods - Constitutional Vitals: Temp Pulse Resp BP Pulse Ox 97.6 F 111 18 118/86 95 10/26/17 14:18 10/26/17 14:18 10/26/17 14:18 10/26/17 14:18 10/26/17 14:18 General appearance: Present: cooperative, mild distress, A&O X 3, pleasant, answers questions appropriately Exam: looks dry - Head Head exam: Present: atraumatic, normal inspection - Eye Eye exam: Present: EOMI, normal appearance, PERRL. Absent: scleral icterus Pupils: Present: normal accommodation - ENT ENT exam: Present: mucous membranes dry, normal exam, normal oropharynx - Neck Neck exam general surgery: Present: full ROM, supple. Absent: lymphadenopathy, tenderness, nuchal rigidity - Respiratory Respiratory exam: Present: CTAB, rhonchi. Absent: chest wall tenderness, rales , respiratory distress, wheezes - Cardiovascular Cardiovascular exam: Present: RRR, +S1, +S2. Absent: diastolic murmur, systolic murmur - GI/Abdominal GI/Abdominal exam: Present: normal bowel sounds, soft. Absent: guarding, hepatomegaly, rebound, splenomegaly, tenderness - Extremities Exam Extremities exam: Present: full ROM, warm. Absent: calf tenderness, joint swelling, normal capillary refill (delayed ~ 3 seconds) - Back Exam Back exam: Present: normal inspection. Absent: CVA tenderness (L), CVA tenderness (R) - Neurological Exam Neurological exam: Present: alert, CN II-XII intact, oriented X3, no focal deficits - Psychiatric Psychiatric exam: Present: normal affect, normal mood - Skin Skin exam: Present: dry, warm. Absent: rash Internal Med - H&P Results - Labs CBC & Chem 7: 10/26/17 10:29 10/26/17 10:29 - Diagnostic Studies Chest x-ray Status: image reviewed by me (subtle RML infiltrate)
[2017-10-26] MEDS ORDERED: Levofloxacin 750 MG/150 ML 750 MG/150 ML BAG IVPB SCH (16:00)
[2017-10-26 16:19] LABS: BUN/Creatinine Ratio 11 (6-26); Blood Urea Nitrogen 8 mg/dL (6-20); Calcium 7.8 mg/dL (8.6-10.3); Chloride 109 mEq/L (98-107); Glucose 301 mg/dL (70-105); Magnesium 1.8 mg/dL (1.6-2.6); Osmolality,Calculated 286 (280-300); Potassium 3.6 mEq/L (3.5-5.1); Sodium 133 mEq/L (136-145); eGFR For African Americans > 60 (> 60); eGFR For Non-African Americans > 60 (> 60)
[2017-10-26] MEDS ORDERED: D5% in 0.45% NACL w KCl 20 MEQ/1,000 ML MLS IVC PRN (17:12)
[2017-10-26] MEDS: D5% in 0.45% NACL w KCl 20 MEQ/1,000 ML MLS IVC PRN ×2 (19:37→22:16)
[2017-10-26 19:39] LABS: Carbon Dioxide 8 mEq/L (23-29)
[2017-10-26 20:52] LABS: BUN/Creatinine Ratio 11 (6-26); Blood Urea Nitrogen 7 mg/dL (6-20); Calcium 7.7 mg/dL (8.6-10.3); Carbon Dioxide 12 mEq/L (23-29); Chloride 112 mEq/L (98-107); Glucose 152 mg/dL (70-105); Osmolality,Calculated 281 (280-300); Potassium 3.5 mEq/L (3.5-5.1); Sodium 135 mEq/L (136-145); eGFR For African Americans > 60 (> 60); eGFR For Non-African Americans > 60 (> 60)
[2017-10-26] MEDS: *HR* Heparin 5,000 UNIT/ML VIAL SQ SCH (22:00)
[2017-10-26] MEDS: 0.9 % Sodium Chloride 1,000 ML IVC SCH ×2 (22:16→22:17)
[2017-10-27] MEDS: D5% in 0.45% NACL w KCl 20 MEQ/1,000 ML MLS IVC PRN ×2 (02:24→06:33)
[2017-10-27] MEDS: 0.9 % Sodium Chloride 1,000 ML IVC SCH (03:15)
[2017-10-27] MEDS: *HR* Heparin 5,000 UNIT/ML VIAL SQ SCH ×2 (05:11→12:33)
[2017-10-27 06:44] LABS: BUN/Creatinine Ratio 8 (6-26); Blood Urea Nitrogen 4 mg/dL (6-20); Calcium 7.8 mg/dL (8.6-10.3); Carbon Dioxide 13 mEq/L (23-29); Chloride 112 mEq/L (98-107); Glucose 145 mg/dL (70-105); Magnesium 1.7 mg/dL (1.6-2.6); Osmolality,Calculated 275 (280-300); Potassium 3.4 mEq/L (3.5-5.1); Sodium 133 mEq/L (136-145); eGFR For African Americans > 60 (> 60); eGFR For Non-African Americans > 60 (> 60)
[2017-10-27] MEDS: cefTRIAXone 1,000 MG in Water for inj. (sterile) 20 ML 10 ML IVP SCH (08:42)
[2017-10-27] MEDS ORDERED: Insulin DETEMIR 100 UNIT/ML X5UNITS SQ SCH (09:00)
[2017-10-27] MEDS ORDERED: Insulin LISPRO 300 UNITS/3 ML VIAL SQ SCH ×2 (11:30→21:00)
[2017-10-27 11:45] VITALS: BP 93/68
--- NOTE | 2017-10-27 14:52 | Discharge Summary ---
Date of Encounter: 10/27/17 Time of Encounter: 11:00 - Discharge Diagnosis (1) Diabetic ketoacidosis Priority: Primary Status: Acute Qualifiers: Diabetes mellitus type: type 1 Diabetes mellitus complication detail: without coma Qualified Code(s): E10.10 - Type 1 diabetes mellitus with ketoacidosis without coma - Discharge Medications Home Medications: Insulin LISPRO [Humalog] 10 unit SQ TIDWM 10/31/15 [History] Sulfamethoxazole/Trimeth DS [Bactrim Ds] 1 each PO BID #10 tablet 10/24/17 [Rx] Insulin Glargine [Lantus] 30 unit SQ BID 10/26/17 [History] Ondansetron HCl [Zofran] 4 mg PO Q8HR PRN 10/26/17 [History] Allergies/Adverse Reactions: 3 Allergy/AdvReac Type Severity Reaction Status Date / Time Amoxicillin Allergy Hives Verified 10/24/17 13:23 Penicillins [PCN] Allergy Hives Verified 10/24/17 13:23 Date of admission: 10/26/17 15:11 Primary care physician: PCP NONE - Patient Status Disposition: Home, Self-Care - Discharge Instructions Follow Up With: Alex Gracia DO [Resident] - 11/09/17 1:30 pm Interval History: Patient is a 22-year-old female with past medical history significant for diabetes who presents to the ER on 10/26/17 due to nausea and vomiting. She admits of not taking her insulin as directed for the last 2 or 3 days due to going out socially. In the ER, patient found to be in DKA and was admitted to the medical surgical floor for further management. During patients hospital stay, her anion gap closed and DKA resolved after treatment with insulin drip which was discontinued after starting patients long -acting insulin. Patient will be discharged home to continue her current diabetic management. Hospital course: Ms. Knowles is a 22 year old female - Time Spent with Patient Total time spent providing and/or coordinating discharge services: Less than 30 minutes - Constitutional Vitals: Temp Pulse Resp BP Pulse Ox 98.0 F 93 16 93/68 100 10/27/17 11:37 10/27/17 11:37 10/27/17 11:37 10/27/17 11:37 10/27/17 11:37 General appearance: Present: cooperative, mild distress, A&O X 3, pleasant, answers questions appropriately - Respiratory Respiratory exam: Present: CTAB. Absent: accessory muscle use, rales, rhonchi, wheezes - Cardiovascular Cardiovascular exam: Present: RRR, +S1, +S2. Absent: diastolic murmur, gallop, rubs, systolic murmur
--- NOTE | 2017-10-28 18:32 | Electrocardiograph Report ---
[place] [id number] Test Date: 2017-10-26 Pat Name: Melinda Knowles Department: 110 Room: [facility] Gender: F Furnace Checker: GUMARO : 1995 Requested By: Antonio Suarez Order Number: [id number] Reading MD: Michael Calhoun MD Measurements Intervals [place] Rate: 97 P: 45 KS: 139 QRS: 29 QRSD: 72 T: 32 QT: 363 QTc: 418 Interpretive Statements SINUS RHYTHM Electronically Signed On 10-28-2017 18:30:45 EST by Michael Calhoun MD
== END 2017-10-27 15:32 | disposition home or self-care (01) | DRG 420 ==
LOC: EMEROO 09:46 → 2NNU 09:46 → SUATTDRO 15:11 → 1NENUPED 10-27 15:03
PROVIDERS: ADMIT Pediatrics; ATTEND Hospitalist

== ENCOUNTER 2018-02-02 13:47 | Inpatient (IN) ==
[2018-02-02 14:27] LABS: Bilirubin,Urine Negative (Negative); Blood,Urine Negative (Negative); Clarity,Urine Clear (Clear); Color,Urine Yellow (Yellow); Glucose,Urine (UA) >=1000 mg/dL (Normal); Ketones,Urine 15 mg/dL (Negative); Leukocyte Esterase,Urine Negative (Negative); Nitrite,Urine Negative (Negative); PH,Urine 6.5 pH Units (5.0-8.0); Protein,Urine Negative (Neg-Trace); Specific Gravity,Urine > 1.030 (1.010-1.025); Urobilinogen,Urine Normal (Normal)
[2018-02-02 15:06] LABS: Basophils # 0.1 K/mcL (0.0-0.2); Basophils % 0.8 %; Eosinophils % 0.3 %; Hematocrit 42.9 % (35.3-44.9); Immature Granulocytes % 0.3 % (0-4); Lymphocytes # 1.5 K/mcL (0.6-4.6); Lymphocytes % 10.5 %; Mean Corpuscular HGB Conc 32.6 g/dL (31.6-35.5); Mean Corpuscular Hemoglobin 29.8 pg (28.0-33.3); Mean Corpuscular Volume 91.3 fL (83.0-100.0); Mean Platelet Volume 10.3 fL (9.4-12.4); Monocytes # 0.6 K/mcL (0.0-1.3); Monocytes % 4.1 %; Platelet Count 281 K/mcL (140-400); Red Cell Distribution Width 12.2 % (11.5-14.5)
[2018-02-02] MEDS ORDERED: Isovue-370 500 ML INFUS..BTL IV ONE (15:19)
[2018-02-02 15:29] LABS: Alanine Aminotransferase 22 Units/L (7-52); Albumin 3.9 g/dL (3.5-5.7); Albumin/Globulin Ratio 1.4 (1.1-2.2); Alkaline Phosphatase 110 Units/L (34-104); Amylase 12 Units/L (29-103); Aspartate Amino Transferase 23 Units/L (13-39); BUN/Creatinine Ratio 13 (6-26); Bilirubin,Direct 0.2 mg/dL (0.0-0.2); Bilirubin,Indirect 0.7 mg/dL (0.0-1.2); Bilirubin,Total 0.9 mg/dL (0.3-1.0); Blood Urea Nitrogen 9 mg/dL (6-20); Calcium 8.6 mg/dL (8.6-10.3); Carbon Dioxide 19 mEq/L (23-29); Chloride 86 mEq/L (98-107); Globulin 2.8 g/dL (2.4-3.5); Glucose 979 mg/dL (70-105); Lipase 8 Units/L (11-82); Osmolality,Calculated 300 (280-300); Potassium 4.4 mEq/L (3.5-5.1); Sodium 121 mEq/L (136-145); Total Protein 6.7 g/dL (6.4-8.9); eGFR For African Americans > 60 (> 60); eGFR For Non-African Americans > 60 (> 60)
--- NOTE | 2018-02-02 15:37 | Emergency Department Note ---
Disposition Clinical Impression: DKA (diabetic ketoacidoses) Qualifiers: Diabetes mellitus type: type 1 Diabetes mellitus complication detail: without coma Qualified Code(s): E10.10 - Type 1 diabetes mellitus with ketoacidosis without coma Disposition: Admitted As Inpatient Condition: Serious Time of Disposition: 17:40 Abdominal Pain HPI - General Chief Complaint: ED Abdominal Pain Stated Complaint: ABD Pain,N/D Time Seen by Provider: 02/02/18 14:58 Source: patient Nursing Notes Reviewed: Yes Vital Signs Reviewed: Yes - History of Present Illness HPI Narrative: Miss Knowles, 21-year-old female, presents from home for evaluation of a 3 week history of nausea, diarrhea, abdominal pain. She is here today because it is worsened in the last several days and she had a single episode of hematochezia last night. She describes her pain as lower abdomen, tightness, worse with eating, nothing noted to improve. She has associated chills with decreased by mouth intake. ROS: Positive: As above Negative: Vomiting, fever, no abdominal surgical history, no dysuria, no vaginal discharge, no history of inflammatory bowel disease. PMH: Patient's type I diabetic, diagnosed at age 8, poorly controlled with most recent hemoglobin A1c 12-13 and typical daily blood glucose in the 200s. This is managed by the [facility]. Patient notes she is noncompliant with her diet. Pain Scale: 9 - Related Data Home Medications Medication Instructions Recorded Confirmed Insulin LISPRO [Humalog] 10 unit SQ TIDWM 10/31/15 02/02/18 Insulin Glargine [Lantus] 30 unit SQ BID 10/26/17 02/02/18 valACYclovir [Valtrex] 500 mg PO DAILY 02/02/18 02/02/18 Allergies Allergy/AdvReac Type Severity Reaction Status Date / Time Amoxicillin Allergy Hives Verified 10/24/17 13:23 Penicillins [PCN] Allergy Hives Verified 10/24/17 13:23 All systems ED: reviewed and negative except as stated. Review of Systems: As Per HPI Abdominal Pain PMH - Past Medical History Medical history: Reports: diabetes Female Surgical History: Reports: no surgical history SAW GRINDER history: Reports: no SAW GRINDER history Psychiatric history: Reports: no psych history - Social History Smoking status: Current every day smoker Alcohol use: Reports: occasionally Drug use: Reports: none Physical Exam Vital Signs Reviewed General: Patient is alert, oriented, and in no acute distress. Head: atraumatic, normocephalic Eye: normal appearance, PERRL, EOMI, no scleral icterus, no conjunctival injection ENT: mucous membranes moist, normal external ear exam Neck: normal inspection, trachea midline, full ROM Chest: normal inspection, symmetric chest rise Respiratory: Good respiratory effort. Bilateral breath sounds are clear without wheezing, crackles, or rhonchi. Cardiovascular: Regular rate and rhythm. No clicks, rubs, gallops, or murmors. Normal heart sounds. Abdomen: Bowel sounds present normoactive x-4 quadrants. Abdomen is soft, nondistended. Lower abdominal tenderness in the left lower quadrant, epigastrium, right lower quadrant. No guarding or rebound. No organomegaly noted. Musculoskeletal: Spontaneously moving all extremities. Skin: warm, dry, intact. Neuro: Alert and oriented x4. Sensation light touch intact. Psych: Patient's affect is appropriate for situation. - General Limitations: no limitations General appearance: alert, in no apparent distress Course Course Narrative: Bedside blood glucose is in the 900's. Patient has been in DKA previously and states this does not feel the same. While waiting for laboratory results, I spent approximately 10 minutes discussing with her the importance of glucose control in the context of the sequelae of diabetes such as coronary artery disease, diabetic retinopathy, diabetic neuropathy, etc. I also discussed in detail the pathophysiology of DKA ; though it had been previously explained to her she did understand it and she was appreciative that vaccination was able to encompass her current knowledge and apply it to her previous and current situation so that she now understood. Patient is in treat DKA-diabetic, serum ketones positive, blood pH is acidotic. Will begin IV fluids and insulin drip. EKG data told January 2018 at 16:27 interpreted as sinus tachycardia with a rate of 108. Normal axis. Short WA interval at 96 ms otherwise normal herbals. Nonspecific ST-T changes. No previous EKG for comparison. Patient's mentation remains normal. I discussed the patient with the admitting hospitalist, Dr. Ortega, who agrees to accept the patient. Vital Signs Temperature 97.7 F 02/02/18 14:05 Pulse Rate 108 02/02/18 14:05 Respiratory Rate 16 02/02/18 14:05 Blood Pressure 109/74 02/02/18 14:05 O2 Sat by Pulse Oximetry 100 02/02/18 14:05 Temperature 98.1 F 02/02/18 23:52 Pulse Rate 96 02/02/18 23:52 Respiratory Rate 20 02/02/18 23:52 Blood Pressure 113/73 02/02/18 23:52 O2 Sat by Pulse Oximetry 96 02/02/18 23:52 Oxygen Delivery Oxygen Delivery Room Air Abdominal Pain - Lab Data Result diagrams: 02/02/18 14:37 02/02/18 23:03 Lab Results 02/02/18 02/02/18 02/02/18 Range/Units 13:50 13:50 14:37 WBC 14.3 H (4.3-11.1) K/mcL RBC 4.70 (3.82-4.97) M/mcL Hgb 14.0 (11.5-15.4) g/dL Hct 42.9 (35.3-44.9) % MCV 91.3 (83.0-100.0) fL MCH 29.8 (28.0-33.3) pg MCHC 32.6 (31.6-35.5) g/dL RDW 12.2 (11.5-14.5) % Plt Count 281 (140-400) K/mcL MPV 10.3 (9.4-12.4) fL Immature Gran % 0.3 (0-4) % Seg Neutrophils % 84.0 % Lymphocytes % 10.5 % Monocytes % 4.1 % Eosinophils % 0.3 % Basophils % 0.8 % Neutrophils # 12.0 H (1.6-8.9) K/mcL Lymphocytes # 1.5 (0.6-4.6) K/mcL Monocytes # 0.6 (0.0-1.3) K/mcL Eosinophils # 0.0 (0.0-0.6) K/mcL Basophils # 0.1 (0.0-0.2) K/mcL VBG pH (7.32-7.42) pH Units VBG pCO2 (41-51) mmHg VBG pO2 (25-50) mmHg VBG HCO3 (21-27) mEq/L Sodium (136-145) mEq/L Potassium (3.5-5.1) mEq/L Chloride (98-107) mEq/L Carbon Dioxide (23-29) mEq/L BUN (6-20) mg/dL Creatinine (0.60-1.20) mg/dL Est GFR ( Amer) (> 60) Est GFR (Non-Af Amer) (> 60) BUN/Creatinine Ratio (6-26) Glucose (70-105) mg/dL POC Glucose (70-99) mg/dL Calculated Osmolality (280-300) Lactic Acid (0.5-2.2) mmol/L Calcium (8.6-10.3) mg/dL Phosphorus (2.7-4.5) mg/dL Magnesium (1.6-2.6) mg/dL Total Bilirubin (0.3-1.0) mg/dL Direct Bilirubin (0.0-0.2) mg/dL Indirect Bilirubin (0.0-1.2) mg/dL AST (13-39) Units/L ALT (7-52) Units/L Alkaline Phosphatase (34-104) Units/L Serum Total Protein (6.4-8.9) g/dL Albumin (3.5-5.7) g/dL Globulin (2.4-3.5) g/dL Albumin/Globulin Ratio (1.1-2.2) Amylase (29-103) Units/L Lipase (11-82) Units/L Beta-Hydroxybutyric Acd (0.02-0.27) mmol/L Urine Color Yellow (Yellow) Urine Clarity Clear (Clear) Urine pH 6.5 (5.0-8.0) pH Units Ur Specific Eliot > 1.030 H (1.010-1.025) Urine Protein Negative (Neg-Trace) mg/dL Urine Glucose (UA) >=1000 H (Normal) mg/dL Urine Ketones 15 H (Negative) mg/dL Urine Blood Negative (Negative) Urine Nitrite Negative (Negative) Urine Bilirubin Negative (Negative) Urine Urobilinogen Normal (Normal) mg/dL Ur Leukocyte Esterase Negative (Negative) Ur Culture Indicated? NO (NO) Urine Test Negative (Negative) 02/02/18 02/02/18 02/02/18 Range/Units 14:37 15:35 16:11 WBC (4.3-11.1) K/mcL RBC (3.82-4.97) M/mcL Hgb (11.5-15.4) g/dL Hct (35.3-44.9) % MCV (83.0-100.0) fL MCH (28.0-33.3) pg MCHC (31.6-35.5) g/dL RDW (11.5-14.5) % Plt Count (140-400) K/mcL MPV (9.4-12.4) fL Immature Gran % (0-4) % Seg Neutrophils % % Lymphocytes % % Monocytes % % Eosinophils % % Basophils % % Neutrophils # (1.6-8.9) K/mcL Lymphocytes # (0.6-4.6) K/mcL Monocytes # (0.0-1.3) K/mcL Eosinophils # (0.0-0.6) K/mcL Basophils # (0.0-0.2) K/mcL VBG pH 7.23 L (7.32-7.42) pH Units VBG pCO2 44 (41-51) mmHg VBG pO2 137 H (25-50) mmHg VBG HCO3 19 L (21-27) mEq/L Sodium 121 L (136-145) mEq/L Potassium 4.4 (3.5-5.1) mEq/L Chloride 86 L (98-107) mEq/L Carbon Dioxide 19 L (23-29) mEq/L BUN 9 (6-20) mg/dL Creatinine 0.68 (0.60-1.20) mg/dL Est GFR ( Amer) > 60 (> 60) Est GFR (Non-Af Amer) > 60 (> 60) BUN/Creatinine Ratio 13 (6-26) Glucose 979 H* (70-105) mg/dL POC Glucose (70-99) mg/dL Calculated Osmolality 300 (280-300) Lactic Acid (0.5-2.2) mmol/L Calcium 8.6 (8.6-10.3) mg/dL Phosphorus 4.3 (2.7-4.5) mg/dL Magnesium 1.8 (1.6-2.6) mg/dL Total Bilirubin 0.9 (0.3-1.0) mg/dL Direct Bilirubin 0.2 (0.0-0.2) mg/dL Indirect Bilirubin 0.7 (0.0-1.2) mg/dL AST 23 (13-39) Units/L ALT 22 (7-52) Units/L Alkaline Phosphatase 110 H (34-104) Units/L Serum Total Protein 6.7 (6.4-8.9) g/dL Albumin 3.9 (3.5-5.7) g/dL Globulin 2.8 (2.4-3.5) g/dL Albumin/Globulin Ratio 1.4 (1.1-2.2) Amylase 12 L (29-103) Units/L Lipase 8 L (11-82) Units/L Beta-Hydroxybutyric Acd > 2.00 H (0.02-0.27) mmol/L Urine Color (Yellow) Urine Clarity (Clear) Urine pH (5.0-8.0) pH Units Ur Specific Eliot (1.010-1.025) Urine Protein (Neg-Trace) mg/dL Urine Glucose (UA) (Normal) mg/dL Urine Ketones (Negative) mg/dL Urine Blood (Negative) Urine Nitrite (Negative) Urine Bilirubin (Negative) Urine Urobilinogen (Normal) mg/dL Ur Leukocyte Esterase (Negative) Ur Culture Indicated? (NO) Urine Test (Negative) 02/02/18 02/02/18 02/02/18 Range/Units 16:26 17:27 17:30 WBC (4.3-11.1) K/mcL RBC (3.82-4.97) M/mcL Hgb (11.5-15.4) g/dL Hct (35.3-44.9) % MCV (83.0-100.0) fL MCH (28.0-33.3) pg MCHC (31.6-35.5) g/dL RDW (11.5-14.5) % Plt Count (140-400) K/mcL MPV (9.4-12.4) fL Immature Gran % (0-4) % Seg Neutrophils % % Lymphocytes % % Monocytes % % Eosinophils % % Basophils % % Neutrophils # (1.6-8.9) K/mcL Lymphocytes # (0.6-4.6) K/mcL Monocytes # (0.0-1.3) K/mcL Eosinophils # (0.0-0.6) K/mcL Basophils # (0.0-0.2) K/mcL VBG pH (7.32-7.42) pH Units VBG pCO2 (41-51) mmHg VBG pO2 (25-50) mmHg VBG HCO3 (21-27) mEq/L Sodium (136-145) mEq/L Potassium (3.5-5.1) mEq/L Chloride (98-107) mEq/L Carbon Dioxide (23-29) mEq/L BUN (6-20) mg/dL Creatinine (0.60-1.20) mg/dL Est GFR ( Amer) (> 60) Est GFR (Non-Af Amer) (> 60) BUN/Creatinine Ratio (6-26) Glucose (70-105) mg/dL POC Glucose > 600 H* > 600 H* (70-99) mg/dL Calculated Osmolality (280-300) Lactic Acid 1.5 (0.5-2.2) mmol/L Calcium (8.6-10.3) mg/dL Phosphorus (2.7-4.5) mg/dL Magnesium (1.6-2.6) mg/dL Total Bilirubin (0.3-1.0) mg/dL Direct Bilirubin (0.0-0.2) mg/dL Indirect Bilirubin (0.0-1.2) mg/dL AST (13-39) Units/L ALT (7-52) Units/L Alkaline Phosphatase (34-104) Units/L Serum Total Protein (6.4-8.9) g/dL Albumin (3.5-5.7) g/dL Globulin (2.4-3.5) g/dL Albumin/Globulin Ratio (1.1-2.2) Amylase (29-103) Units/L Lipase (11-82) Units/L Beta-Hydroxybutyric Acd (0.02-0.27) mmol/L Urine Color (Yellow) Urine Clarity (Clear) Urine pH (5.0-8.0) pH Units Ur Specific Eliot (1.010-1.025) Urine Protein (Neg-Trace) mg/dL Urine Glucose (UA) (Normal) mg/dL Urine Ketones (Negative) mg/dL Urine Blood (Negative) Urine Nitrite (Negative) Urine Bilirubin (Negative) Urine Urobilinogen (Normal) mg/dL Ur Leukocyte Esterase (Negative) Ur Culture Indicated? (NO) Urine Test (Negative) 02/02/18 Range/Units 17:59 WBC (4.3-11.1) K/mcL RBC (3.82-4.97) M/mcL Hgb (11.5-15.4) g/dL Hct (35.3-44.9) % MCV (83.0-100.0) fL MCH (28.0-33.3) pg MCHC (31.6-35.5) g/dL RDW (11.5-14.5) % Plt Count (140-400) K/mcL MPV (9.4-12.4) fL Immature Gran % (0-4) % Seg Neutrophils % % Lymphocytes % % Monocytes % % Eosinophils % % Basophils % % Neutrophils # (1.6-8.9) K/mcL Lymphocytes # (0.6-4.6) K/mcL Monocytes # (0.0-1.3) K/mcL Eosinophils # (0.0-0.6) K/mcL Basophils # (0.0-0.2) K/mcL VBG pH (7.32-7.42) pH Units VBG pCO2 (41-51) mmHg VBG pO2 (25-50) mmHg VBG HCO3 (21-27) mEq/L Sodium 128 L (136-145) mEq/L Potassium 4.1 (3.5-5.1) mEq/L Chloride 95 L (98-107) mEq/L Carbon Dioxide 11 L (23-29) mEq/L BUN 10 (6-20) mg/dL Creatinine 0.64 (0.60-1.20) mg/dL Est GFR ( Amer) > 60 (> 60) Est GFR (Non-Af Amer) > 60 (> 60) BUN/Creatinine Ratio 16 (6-26) Glucose 579 H* (70-105) mg/dL POC Glucose (70-99) mg/dL Calculated Osmolality 292 (280-300) Lactic Acid (0.5-2.2) mmol/L Calcium 8.8 (8.6-10.3) mg/dL Phosphorus (2.7-4.5) mg/dL Magnesium (1.6-2.6) mg/dL Total Bilirubin (0.3-1.0) mg/dL Direct Bilirubin (0.0-0.2) mg/dL Indirect Bilirubin (0.0-1.2) mg/dL AST (13-39) Units/L ALT (7-52) Units/L Alkaline Phosphatase (34-104) Units/L Serum Total Protein (6.4-8.9) g/dL Albumin (3.5-5.7) g/dL Globulin (2.4-3.5) g/dL Albumin/Globulin Ratio (1.1-2.2) Amylase (29-103) Units/L Lipase (11-82) Units/L Beta-Hydroxybutyric Acd (0.02-0.27) mmol/L Urine Color (Yellow) Urine Clarity (Clear) Urine pH (5.0-8.0) pH Units Ur Specific Eliot (1.010-1.025) Urine Protein (Neg-Trace) mg/dL Urine Glucose (UA) (Normal) mg/dL Urine Ketones (Negative) mg/dL Urine Blood (Negative) Urine Nitrite (Negative) Urine Bilirubin (Negative) Urine Urobilinogen (Normal) mg/dL Ur Leukocyte Esterase (Negative) Ur Culture Indicated? (NO) Urine Test (Negative) Attestation Statement - Attestation Attestation: I examined this patient and my medical decision-making was reviewed with the Resident Physician. I agree with the documented findings, disposition and treatment plan as described except to the extent set forth below. Findings consistent with DKA. IV fluids, insulin infusion, patient has significantly elevated pH derangement and elevated glucose. No instability of vital signs at time of admission. I spent greater than 35 minutes of critical care time resuscitating this acutely ill patient suffering from diabetic ketoacidosis. This was excluding billable procedures.
[2018-02-02] MEDS ORDERED: *HR* Dextrose 50 % in Water (Syg) 50 ML SYRINGE IVP PRN ×2 (15:38→22:01)
[2018-02-02] MEDS ORDERED: Insulin Human Regular 100 UNIT in 0.9 % Sodium Chloride 100 ML IVC SCH (15:45)
[2018-02-02 16:14] LABS: VBG HCO3 19 mEq/L (21-27); VBG PCO2 44 mmHg (41-51); VBG PH 7.23 pH Units (7.32-7.42); VBG PO2 137 mmHg (25-50)
[2018-02-02] MEDS: 0.9 % Sodium Chloride 1,000 ML IVC SCH ×2 (16:31→19:56)
[2018-02-02 16:56] LABS: Magnesium 1.8 mg/dL (1.6-2.6); Phosphorous 4.3 mg/dL (2.7-4.5)
[2018-02-02 18:53] LABS: BUN/Creatinine Ratio 16 (6-26); Blood Urea Nitrogen 10 mg/dL (6-20); Calcium 8.8 mg/dL (8.6-10.3); Carbon Dioxide 11 mEq/L (23-29); Chloride 95 mEq/L (98-107); Glucose 579 mg/dL (70-105); Osmolality,Calculated 292 (280-300); Potassium 4.1 mEq/L (3.5-5.1); Sodium 128 mEq/L (136-145); eGFR For African Americans > 60 (> 60); eGFR For Non-African Americans > 60 (> 60)
[2018-02-02] MEDS: 0.9 % Sodium Chloride w KCl 20 MEQ/1,000 ML MLS IVC SCH (21:40)
[2018-02-02] MEDS ORDERED: 0.9 % Sodium Chloride w KCl 20 MEQ/1,000 ML MLS IVC ONE (21:40)
[2018-02-02] MEDS ORDERED: D5% in 0.45% NACL w KCl 20 MEQ/1,000 ML MLS IVC PRN (22:01)
[2018-02-02] MEDS ORDERED: Naloxone 0.4 MG/ML INJ IVP PRN (22:01)
[2018-02-02 23:35] LABS: BUN/Creatinine Ratio 12 (6-26); Blood Urea Nitrogen 6 mg/dL (6-20); Calcium 8.2 mg/dL (8.6-10.3); Carbon Dioxide 16 mEq/L (23-29); Chloride 105 mEq/L (98-107); Glucose 236 mg/dL (70-105); Osmolality,Calculated 283 (280-300); Potassium 3.7 mEq/L (3.5-5.1); Sodium 134 mEq/L (136-145); eGFR For African Americans > 60 (> 60); eGFR For Non-African Americans > 60 (> 60)
[2018-02-02] MEDS ORDERED: Insulin LISPRO 300 UNITS/3 ML VIAL SQ PRN (23:45)
[2018-02-03] MEDS ORDERED: Insulin Human Regular 100 UNIT in 0.9 % Sodium Chloride 100 ML IVC SCH (00:30)
--- NOTE | 2018-02-03 00:39 | Internal Med History&Physical ---
Date of Encounter: 02/02/18 Time of Encounter: 21:00 Internal Medicine - H&P: HPI Chief complaint: nausea, vomiting, abdominal pain Plans for Post Hospital Care: Home History of present illness: Ms. Knowles is a 22 year old female who presents the ER today with complaints of bowel pain, nausea, vomiting, and poor glucose control. Symptoms started roughly 24-36 hours prior to ER presentation. She was found to have evidence of DKA in the ER, and she was subsequently admitted to hospitalist service. She also underwent CT scan imaging of the abdomen and pelvis given her abdominal pain. Imaging studies were negative except for some ovarian cysts. Upon my assessment of the patient, she has no further abdominal pain and feels much better. She does not appear to be critical and only has evidence of mild dehydration. She has had several recurrent bouts of DKA in the past, and she states that this is her mildest episode of DKA that she can recall. She denies any fevers, chills, night sweats, cough, congestion, chest pain, or shortness of breath. She is an insulin-dependent diabetic, and she is on chronic Lantus and Humalog insulin regimen. Her average glucose control runs around 200 at home. She had been on insulin pump in the past but she has been off that for several years. Past Med Surg Social Fam HX - Past Medical History Attestation: Yes The following information was validated with the patient. Source: patient, old records reviewed Medical history: diabetes Psychiatric history: no psych history - Past Surgical History Surgical History: no surgical history - Social History Smoking Status: Current every day smoker Smokeless Tobacco Status: No Alcohol use: occasionally Drug use: none Current living situation: Home, With Family Activity Level: Independent ambulation Recent Out of Country Travel Within the Last 8 Weeks: No - Family History Sister Living Status: Still Living Hx Family Endocrine Disorder: No Mother Adopted: No Living Status: Still Living Hx Family Endocrine Disorder: No Internal Medicine - H&P: Meds Insulin LISPRO [Humalog] 10 unit SQ TIDWM 10/31/15 [History] Insulin Glargine [Lantus] 30 unit SQ BID 10/26/17 [History] valACYclovir [Valtrex] 500 mg PO DAILY 02/02/18 [History] 3 Allergy/AdvReac Type Severity Reaction Status Date / Time Amoxicillin Allergy Hives Verified 10/24/17 13:23 Penicillins [PCN] Allergy Hives Verified 10/24/17 13:23 - Constitutional Constitutional: no chills, no fever(s), no night sweats - EENT Eyes: no blurry vision, no change in vision Ears: no ear pain, no tinnitus Nose, mouth and throat: no nasal congestion, no sinus pressure, no sore throat - Cardiovascular Cardiovascular ROS IM: no chest pain, no dyspnea - Respiratory Respiratory: no cough, no hemoptysis, no wheezing, no chest congestion - Gastrointestinal Gastrointestinal: abdominal pain, nausea, vomiting, no diarrhea, no hematemesis , no hematochezia, no melena - Genitourinary Genitourinary: no dysuria, no flank pain, no hematuria - Musculoskeletal Musculoskeletal ROS IM: no back pain, no joint swelling - Integumentary Integumentary IM: no rash, no jaundice - Neurological Neurological ROS: no dizziness, no focal weakness, no frequent falls, no headache(s) - Psychiatric Psychiatric: no anxiety, no depression - Endocrine Endocrine IM: no polydipsia, no polyuria - Allergic/Immunologic Allergic/Immunologic: no wheezing, no GI upset with certain foods - Constitutional Vitals: Temp Pulse Resp BP Pulse Ox 98.1 F 96 20 113/73 96 02/02/18 23:52 02/02/18 23:52 02/02/18 23:52 02/02/18 23:52 02/02/18 23:52 General appearance: Present: cooperative, A&O X 3, pleasant, answers questions appropriately Exam: looks mildly dry, otherwise no distress - Head Head exam: Present: atraumatic, normal inspection - Eye Eye exam: Present: EOMI, normal appearance, PERRL. Absent: scleral icterus Pupils: Present: normal accommodation - ENT ENT exam: Present: mucous membranes dry, normal exam, normal oropharynx - Neck Neck exam general surgery: Present: full ROM, supple. Absent: lymphadenopathy, tenderness, nuchal rigidity, thyromegaly - Respiratory Respiratory exam: Present: CTAB. Absent: chest wall tenderness, rales, respiratory distress, rhonchi, wheezes - Cardiovascular Cardiovascular exam: Present: RRR, +S1, +S2. Absent: diastolic murmur, systolic murmur - GI/Abdominal GI/Abdominal exam: Present: soft, no peritoneal signs. Absent: guarding, hepatomegaly, mass, rebound, splenomegaly, tenderness - Extremities Exam Extremities exam: Present: full ROM, normal capillary refill, warm, radial pulses palpable and symmetrical. Absent: calf tenderness, joint swelling, pedal edema, tenderness - Back Exam Back exam: Present: normal inspection. Absent: CVA tenderness (L), CVA tenderness (R) - Neurological Exam Neurological exam: Present: alert, CN II-XII intact, oriented X3, strengths equal and symetr throughout - Psychiatric Psychiatric exam: Present: normal affect, normal mood - Skin Skin exam: Present: dry, warm. Absent: rash Internal Med - H&P Results - Labs CBC & Chem 7: 02/02/18 14:37 02/02/18 23:03 Labs: BMP 02/02/18 23:03 Sodium 134 L Potassium 3.7 Chloride 105 Carbon Dioxide 16 L BUN 6 Creatinine 0.50 L Glucose 236 H Calcium 8.2 L - Diagnostic Studies CT scan - abdomen Additional comments: Report reviewed -- ovarian cysts noted - Assessment and plan (1) Diabetic ketoacidosis Current Visit: Yes Status: Acute Assessment and plan: 1. Will continue IVF, insulin drip, and electrolyte monitoring per DKA protocol. 2. Keep npo until anion gap closes and electrolytes stabilize. 3. Will switch to SQ insulin once above measures achieved. Qualifiers: Diabetes mellitus type: type 1 Diabetes mellitus complication detail: without coma Qualified Code(s): E10.10 - Type 1 diabetes mellitus with ketoacidosis without coma (2) Type 1 diabetes mellitus Current Visit: No Status: Chronic Assessment and plan: 1. Discussed with patient the need for better glucose control and diet control. 2. Will check A1C. 3. Outpatient follow up with PCP. 4. Patient should consider insulin pump. 5. Smoking cessation well advised. Qualifiers: Diabetes mellitus complication status: with unspecified complications Qualified Code(s): E10.8 - Type 1 diabetes mellitus with unspecified complications (3) DVT prophylaxis Current Visit: No Status: Acute Assessment and plan: 1. Heparin SQ.
[2018-02-03 03:56] LABS: Basophils # 0.1 K/mcL (0.0-0.2); Basophils % 0.9 %; Eosinophils # 0.2 K/mcL (0.0-0.6); Eosinophils % 1.6 %; Hematocrit 36.2 % (35.3-44.9); Hemoglobin 12.2 g/dL (11.5-15.4); Immature Granulocytes % 0.2 % (0-4); Lymphocytes # 4.7 K/mcL (0.6-4.6); Lymphocytes % 45.5 %; Mean Corpuscular HGB Conc 33.7 g/dL (31.6-35.5); Mean Corpuscular Hemoglobin 29.5 pg (28.0-33.3); Mean Corpuscular Volume 87.4 fL (83.0-100.0); Mean Platelet Volume 9.7 fL (9.4-12.4); Monocytes # 0.7 K/mcL (0.0-1.3); Monocytes % 6.9 %; Neutrophils # 4.7 K/mcL (1.6-8.9); Platelet Count 274 K/mcL (140-400); Red Blood Count 4.14 M/mcL (3.82-4.97); Red Cell Distribution Width 12.2 % (11.5-14.5); Segmented Neutrophils % 44.9 %
[2018-02-03 03:58] LABS: VBG HCO3 21 mEq/L (21-27); VBG PCO2 39 mmHg (41-51); VBG PH 7.33 pH Units (7.32-7.42); VBG PO2 158 mmHg (25-50)
[2018-02-03 04:15] LABS: Alanine Aminotransferase 16 Units/L (7-52); Albumin/Globulin Ratio 1.3 (1.1-2.2); Alkaline Phosphatase 77 Units/L (34-104); Aspartate Amino Transferase 13 Units/L (13-39); BUN/Creatinine Ratio 10 (6-26); Bilirubin,Total 0.4 mg/dL (0.3-1.0); Blood Urea Nitrogen 4 mg/dL (6-20); Calcium 7.9 mg/dL (8.6-10.3); Carbon Dioxide 19 mEq/L (23-29); Chloride 109 mEq/L (98-107); Globulin 2.4 g/dL (2.4-3.5); Glucose 150 mg/dL (70-105); Magnesium 1.7 mg/dL (1.6-2.6); Osmolality,Calculated 280 (280-300); Potassium 3.6 mEq/L (3.5-5.1); Sodium 135 mEq/L (136-145); Total Protein 5.4 g/dL (6.4-8.9); eGFR For African Americans > 60 (> 60); eGFR For Non-African Americans > 60 (> 60)
[2018-02-03] MEDS: 0.9 % Sodium Chloride w KCl 20 MEQ/1,000 ML MLS IVC SCH (04:28)
[2018-02-03] MEDS ORDERED: 0.9 % Sodium Chloride w KCl 20 MEQ/1,000 ML MLS IVC SCH (04:47)
[2018-02-03] MEDS ORDERED: D5% in Water 1,000 ML IVC PRN (04:48)
[2018-02-03] MEDS ORDERED: Dextrose Gel 15 GM/37.5 ML TUBE PO PRN ×2 (04:48)
[2018-02-03] MEDS: Insulin DETEMIR 100 UNIT/ML X5UNITS SQ SCH ×2 (05:39→08:47)
[2018-02-03] MEDS ORDERED: *HR* Heparin 5,000 UNIT/ML VIAL SQ SCH (06:00)
[2018-02-03 08:41] LABS: Estimated Average Glucose 321 mg/dl; Hemoglobin A1C 12.8 %
[2018-02-03] MEDS: Insulin LISPRO 300 UNITS/3 ML VIAL SQ SCH ×2 (08:46→12:04)
[2018-02-03] MEDS ORDERED: valACYclovir 500 MG TABLET PO SCH (09:00)
[2018-02-03 10:47] VITALS: BP 104/68
--- NOTE | 2018-02-03 12:04 | Discharge Summary ---
- NOTES TO OUTPATIENT PROVIDER Notes to Outpatient Provider: Follow-up with primary care provider for diabetes management Date of Encounter: 02/03/18 Time of Encounter: 11:00 - Discharge Diagnosis (1) Diabetic ketoacidosis Priority: Primary Status: Acute Qualifiers: Diabetes mellitus type: type 1 Diabetes mellitus complication detail: without coma Qualified Code(s): E10.10 - Type 1 diabetes mellitus with ketoacidosis without coma (2) Type 1 diabetes mellitus Priority: Secondary Status: Chronic Qualifiers: Diabetes mellitus complication status: with unspecified complications Qualified Code(s): E10.8 - Type 1 diabetes mellitus with unspecified complications Hospital course: Patient is a 22-year-old female with past medical history of uncontrolled diabetes and noncompliance presents to the ER on 02/02/18 due to abdominal pain and nausea/vomiting. She was found to have evidence of DKA in the ER, and she was subsequently admitted to hospitalist service. She also underwent CT scan imaging of the abdomen and pelvis given her abdominal pain. Imaging studies were negative except for some ovarian cysts. During patients hospital stay, her DKA resolved on insulin drip and she was restarted on her basal insulin. Patient was educated on importance of compliance with medication. She will be discharged to follow-up with primary care provider. - Time Spent with Patient Total time spent providing and/or coordinating discharge services: Less than 30 minutes - Discharge Medications Home Medications: Insulin LISPRO [Humalog] 10 unit SQ TIDWM 10/31/15 [History] Insulin Glargine [Lantus] 30 unit SQ BID 10/26/17 [History] valACYclovir [Valtrex] 500 mg PO DAILY 02/02/18 [History] Allergies/Adverse Reactions: 3 Allergy/AdvReac Type Severity Reaction Status Date / Time Amoxicillin Allergy Hives Verified 10/24/17 13:23 Penicillins [PCN] Allergy Hives Verified 10/24/17 13:23 Date of admission: 02/02/18 22:01 Primary care physician: PCP NONE - Constitutional Vitals: Temp Pulse Resp BP Pulse Ox 98.4 F 94 16 104/68 97 02/03/18 10:44 02/03/18 10:44 02/03/18 10:44 02/03/18 10:44 02/03/18 10:44 General appearance: Present: cooperative, A&O X 3, pleasant, answers questions appropriately - Patient Status Disposition: Home, Self-Care Condition: Serious - Discharge Instructions Instructions: Diabetes Mellitus Type 1 in Adults (DC), Diabetes Mellitus Type 2 in Adults (DC) Follow Up With: Adi Alejandra DO [Resident] - 02/08/18 9:15 am (located in the [facility] across from [facility] )
[2018-02-03] MEDS ORDERED: Insulin LISPRO 300 UNITS/3 ML VIAL SQ SCH (21:00)
--- NOTE | 2018-02-10 08:20 | Electrocardiograph Report ---
[address] [address] Test Date: 2018-02-02 Pat Name: Melinda Knowles Department: 102 Room: 06 Gender: F [employer]: : 1995 Requested By: Gasper London Order Number: [id number] Reading MD: Lloyd Jimenez Measurements Intervals [place] Rate: 108 P: 56 FL: 96 QRS: 48 QRSD: 78 T: 50 QT: 350 QTc: 414 Interpretive Statements SINUS TACHYCARDIA NONSPECIFIC T-WAVE ABNORMALITY Electronically Signed On 02-10-2018 8:19:07 EDT by Lloyd Jimenez
== END 2018-02-03 12:51 | disposition home or self-care (01) | DRG 420 ==
LOC: 2NNU 13:47 → EMEROO 13:47 → 2NNU 20:15
PROVIDERS: ADMIT Pediatrics; ATTEND Hospitalist

== ENCOUNTER 2019-11-13 01:24 | Observation (INO) ==
[2019-11-13] MEDS ORDERED: 0.9 % Sodium Chloride 1,000 ML ONE (01:35)
[2019-11-13] MEDS ORDERED: Ondansetron 4 MG/2 ML VIAL IVP ONE (01:43)
[2019-11-13] MEDS: 0.9 % Sodium Chloride 1,000 ML IVC SCH ×6 (01:43→22:50)
[2019-11-13 01:51] LABS: Basophils # 0.2 K/mcL (0.0-0.2); Hematocrit 48.8 % (35.3-44.9); Hemoglobin 15.8 g/dL (11.5-15.4); Immature Granulocytes % 0.3 % (0-4); Lymphocytes # 1.8 K/mcL (0.6-4.6); Lymphocytes % 11.6 %; Mean Corpuscular HGB Conc 32.4 g/dL (31.6-35.5); Mean Corpuscular Hemoglobin 29.4 pg (28.0-33.3); Mean Corpuscular Volume 90.9 fL (83.0-100.0); Mean Platelet Volume 10.6 fL (9.4-12.4); Monocytes # 0.2 K/mcL (0.0-1.3); Monocytes % 1.2 %; Neutrophils # 13.1 K/mcL (1.6-8.9); Platelet Count 363 K/mcL (140-400); Red Blood Count 5.37 M/mcL (3.82-4.97); Red Cell Distribution Width 12.5 % (11.5-14.5); Segmented Neutrophils % 85.9 %; White Blood Count 15.3 K/mcL (4.3-11.1)
[2019-11-13 01:56] LABS: Bilirubin,Urine Negative (Negative); Blood,Urine Trace (Negative); Clarity,Urine Clear (Clear); Color,Urine Yellow (Yellow); Glucose,Urine (UA) >=1000 mg/dL (Normal); Ketones,Urine >=160 mg/dL (Negative); Leukocyte Esterase,Urine Negative (Negative); Nitrite,Urine Negative (Negative); PH,Urine 5.5 pH Units (5.0-8.0); Protein,Urine 30 mg/dL (Neg-Trace); Urobilinogen,Urine Normal (Normal)
[2019-11-13] MEDS ORDERED: *HR* Dextrose 50 % in Water (Syg) 50 ML SYRINGE IVP PRN ×3 (01:58→18:07)
[2019-11-13 01:59] LABS: Bacteria,Urine None Seen per hpf (None-Few); Hyaline Casts,Urine None Seen per lpf (None-Few); Squamous Epithelial Cell,Urine Many per lpf (None-Few); WBC,Urine 0-3 per hpf (0-3)
[2019-11-13] MEDS ORDERED: Insulin Human Regular 100 UNIT in 0.9 % Sodium Chloride 100 ML IVC SCH ×2 (02:00→04:15)
[2019-11-13 02:01] LABS: VBG HCO3 9 mEq/L (21-27); VBG PCO2 28 mmHg (41-51); VBG PO2 135 mmHg (25-50)
[2019-11-13 02:14] LABS: Alanine Aminotransferase 25 Units/L (7-52); Albumin 4.4 g/dL (3.5-5.7); Albumin/Globulin Ratio 1.2 (1.1-2.2); Alkaline Phosphatase 112 Units/L (34-104); Aspartate Amino Transferase 38 Units/L (13-39); BUN/Creatinine Ratio 14 (6-26); Bilirubin,Total 0.4 mg/dL (0.3-1.0); Blood Urea Nitrogen 13 mg/dL (6-20); Calcium 9.7 mg/dL (8.6-10.3); Carbon Dioxide 7 mEq/L (23-29); Chloride 99 mEq/L (98-107); Globulin 3.6 g/dL (2.4-3.5); Glucose 576 mg/dL (70-105); Osmolality,Calculated 303 (280-300); Potassium 4.8 mEq/L (3.5-5.1); Sodium 133 mEq/L (136-145); eGFR For African Americans > 60 (> 60); eGFR For Non-African Americans > 60 (> 60)
[2019-11-13 02:16] LABS: RBC,Urine 0-3 per hpf (0-3); Yeast,Urine Few per hpf (None Seen)
[2019-11-13] MEDS ORDERED: *HR* Promethazine 25 MG/ML VIAL IVP ONE (02:38)
[2019-11-13] MEDS ORDERED: Insulin LISPRO 300 UNITS/3 ML VIAL SQ PRN (04:06)
[2019-11-13] MEDS ORDERED: Naloxone 0.4 MG/ML INJ IVP PRN ×2 (04:23→04:41)
[2019-11-13] MEDS ORDERED: Ondansetron 4 MG/2 ML VIAL IVP PRN (04:23)
[2019-11-13 04:24] LABS: Troponin I 0.03 ng/mL (< 0.04)
[2019-11-13] MEDS: 0.9 % Sodium Chloride w KCl 20 MEQ/1,000 ML MLS IVC SCH ×4 (04:30→22:51)
[2019-11-13 05:50] LABS: Basophils # 0.1 K/mcL (0.0-0.2); Basophils % 0.5 %; Hematocrit 47.1 % (35.3-44.9); Hemoglobin 14.6 g/dL (11.5-15.4); Immature Granulocytes % 0.8 % (0-4); Lymphocytes % 4.7 %; Mean Corpuscular Hemoglobin 29.6 pg (28.0-33.3); Mean Corpuscular Volume 95.3 fL (83.0-100.0); Mean Platelet Volume 10.4 fL (9.4-12.4); Monocytes # 0.5 K/mcL (0.0-1.3); Monocytes % 2.4 %; Neutrophils # 19.1 K/mcL (1.6-8.9); Platelet Count 320 K/mcL (140-400); Red Blood Count 4.94 M/mcL (3.82-4.97); Red Cell Distribution Width 12.5 % (11.5-14.5); Segmented Neutrophils % 91.6 %; White Blood Count 20.8 K/mcL (4.3-11.1)
[2019-11-13 06:13] LABS: Troponin I < 0.03 ng/mL (< 0.04)
[2019-11-13 06:41] LABS: Alanine Aminotransferase 21 Units/L (7-52); Albumin 3.9 g/dL (3.5-5.7); Albumin/Globulin Ratio 1.3 (1.1-2.2); Alkaline Phosphatase 104 Units/L (34-104); Aspartate Amino Transferase 27 Units/L (13-39); BUN/Creatinine Ratio 14 (6-26); Bilirubin,Total 0.3 mg/dL (0.3-1.0); Blood Urea Nitrogen 12 mg/dL (6-20); Calcium 8.2 mg/dL (8.6-10.3); Carbon Dioxide 4 mEq/L (23-29); Chloride 111 mEq/L (98-107); Cholesterol 202 mg/dL (< 200); Globulin 2.9 g/dL (2.4-3.5); Glucose 447 mg/dL (70-105); HDL Cholesterol 67 mg/dL (40-59); LDL Cholesterol,Calculated 104 mg/dL (0-99); Osmolality,Calculated 313 (280-300); Potassium 5.3 mEq/L (3.5-5.1); Sodium 142 mEq/L (136-145); Total Protein 6.8 g/dL (6.4-8.9); Triglycerides 155 mg/dL (< 150); eGFR For African Americans > 60 (> 60); eGFR For Non-African Americans > 60 (> 60)
[2019-11-13] MEDS ORDERED: D5% in Water 1,000 ML IVC SCH (09:30)
[2019-11-13 10:52] LABS: VBG HCO3 9 mEq/L (21-27); VBG PCO2 27 mmHg (41-51); VBG PH 7.15 pH Units (7.32-7.42); VBG PO2 225 mmHg (25-50)
[2019-11-13 11:03] LABS: BUN/Creatinine Ratio 12 (6-26); Blood Urea Nitrogen 10 mg/dL (6-20); Calcium 8.4 mg/dL (8.6-10.3); Carbon Dioxide 10 mEq/L (23-29); Chloride 114 mEq/L (98-107); Glucose 212 mg/dL (70-105); Osmolality,Calculated 303 (280-300); Potassium 4.5 mEq/L (3.5-5.1); Sodium 144 mEq/L (136-145); eGFR For African Americans > 60 (> 60); eGFR For Non-African Americans > 60 (> 60)
[2019-11-13] MEDS ORDERED: Albumin 25% 25gram/100mL 25 GM/100 ML IV.SOLN IVPB ONE (11:29)
[2019-11-13] MEDS: D5% in 0.45% NACL w KCl 20 MEQ/1,000 ML MLS IVC PRN ×2 (12:13→17:30)
[2019-11-13 14:53] LABS: BUN/Creatinine Ratio 12 (6-26); Blood Urea Nitrogen 8 mg/dL (6-20); Calcium 7.9 mg/dL (8.6-10.3); Carbon Dioxide 16 mEq/L (23-29); Chloride 116 mEq/L (98-107); Glucose 160 mg/dL (70-105); Magnesium 1.9 mg/dL (1.6-2.6); Osmolality,Calculated 292 (280-300); Phosphorous 1.5 mg/dL (2.7-4.5); Sodium 140 mEq/L (136-145); eGFR For African Americans > 60 (> 60); eGFR For Non-African Americans > 60 (> 60)
[2019-11-13 15:15] LABS: Estimated Average Glucose 346 mg/dl
[2019-11-13] MEDS ORDERED: Potassium Phosphate 44 MEQ in 0.9 % Sodium Chloride 250 ML IVPB ONE (15:37)
[2019-11-13] MEDS ORDERED: Fluconazole 100 MG TABLET PO ONE (15:51)
[2019-11-13 17:31] LABS: VBG HCO3 19 mEq/L (21-27); VBG PCO2 33 mmHg (41-51); VBG PH 7.36 pH Units (7.32-7.42); VBG PO2 166 mmHg (25-50)
[2019-11-13] MEDS ORDERED: Insulin DETEMIR 100 UNIT/ML X5UNITS SQ ONE (18:06)
[2019-11-13] MEDS ORDERED: D5% in Water 1,000 ML IVC PRN (18:07)
[2019-11-13] MEDS ORDERED: Dextrose Gel 15 GM/37.5 ML TUBE PO PRN ×2 (18:07)
[2019-11-13] MEDS ORDERED: Insulin LISPRO 300 UNITS/3 ML VIAL SQ SCH (21:00)
[2019-11-14 00:09] LABS: BUN/Creatinine Ratio 10 (6-26); Blood Urea Nitrogen 6 mg/dL (6-20); Calcium 7.8 mg/dL (8.6-10.3); Carbon Dioxide 12 mEq/L (23-29); Chloride 112 mEq/L (98-107); Glucose 129 mg/dL (70-105); Osmolality,Calculated 281 (280-300); Potassium 4.5 mEq/L (3.5-5.1); Sodium 136 mEq/L (136-145); eGFR For African Americans > 60 (> 60); eGFR For Non-African Americans > 60 (> 60)
[2019-11-14 07:27] LABS: BUN/Creatinine Ratio 8 (6-26); Blood Urea Nitrogen 5 mg/dL (6-20); Carbon Dioxide 18 mEq/L (23-29); Chloride 107 mEq/L (98-107); Glucose 212 mg/dL (70-105); Magnesium 1.7 mg/dL (1.6-2.6); Osmolality,Calculated 290 (280-300); Phosphorous 2.4 mg/dL (2.7-4.5); Potassium 3.4 mEq/L (3.5-5.1); Sodium 138 mEq/L (136-145); eGFR For African Americans > 60 (> 60); eGFR For Non-African Americans > 60 (> 60)
[2019-11-14] MEDS: Insulin LISPRO 300 UNITS/3 ML VIAL SQ SCH ×2 (10:05→13:16)
[2019-11-14] MEDS: Insulin DETEMIR 100 UNIT/ML X5UNITS SQ SCH ×2 (10:06→13:05)
[2019-11-14 10:11] VITALS: BP 103/68
[2019-11-14 11:49] LABS: Basophils % 0.4 %; Eosinophils # 0.1 K/mcL (0.0-0.6); Eosinophils % 0.6 %; Hematocrit 37.2 % (35.3-44.9); Hemoglobin 12.5 g/dL (11.5-15.4); Immature Granulocytes % 0.3 % (0-4); Lymphocytes # 3.3 K/mcL (0.6-4.6); Lymphocytes % 30.1 %; Mean Corpuscular HGB Conc 33.6 g/dL (31.6-35.5); Mean Corpuscular Hemoglobin 29.2 pg (28.0-33.3); Mean Corpuscular Volume 86.9 fL (83.0-100.0); Mean Platelet Volume 9.9 fL (9.4-12.4); Monocytes # 0.6 K/mcL (0.0-1.3); Monocytes % 5.1 %; Neutrophils # 6.8 K/mcL (1.6-8.9); Platelet Count 289 K/mcL (140-400); Red Blood Count 4.28 M/mcL (3.82-4.97); Red Cell Distribution Width 13.1 % (11.5-14.5); Segmented Neutrophils % 63.5 %; White Blood Count 10.8 K/mcL (4.3-11.1)
== END 2019-11-14 15:11 | disposition home or self-care (01) ==
LOC: EMEROOARM 01:24 → CDU 01:24 → SUATTDRO 02:19 → CDU 02:44 → 3ANU 19:12
PROVIDERS: ADMIT Student in an Organized Health Care Education/Training Program; ATTEND Internal Medicine

== ENCOUNTER 2020-04-27 02:29 | Observation (INO) ==
[2020-04-27] MEDS ORDERED: 0.9 % Sodium Chloride 1,000 ML IVC ONE (02:36)
[2020-04-27] MEDS ORDERED: Acetaminophen 325 MG TABLET PO ONE (02:37)
[2020-04-27 03:14] LABS: Bacteria,Urine Few per hpf (None-Few); Bilirubin,Urine Negative (Negative); Blood,Urine Moderate (Negative); Clarity,Urine Turbid (Clear); Color,Urine Colorless (Yellow); Glucose,Urine (UA) >=1000 mg/dL (Normal); Ketones,Urine 60 mg/dL (Negative); Leukocyte Esterase,Urine Large (Negative); Nitrite,Urine Negative (Negative); Protein,Urine Trace mg/dL (Neg-Trace); RBC,Urine 30-50 per hpf (0-3); Specific Gravity,Urine 1.025 (1.010-1.025); Squamous Epithelial Cell,Urine Few per hpf (None-Few); Urobilinogen,Urine Normal (Normal); WBC,Urine TNTC per hpf (0-3)
[2020-04-27 03:16] LABS: Basophils # 0.1 K/mcL (0.0-0.2); Basophils % 0.5 %; Eosinophils % 0.1 %; Hematocrit 42.2 % (35.3-44.9); Immature Granulocytes % 0.3 % (0-4); Lymphocytes # 0.9 K/mcL (0.6-4.6); Lymphocytes % 6.4 %; Mean Corpuscular HGB Conc 33.2 g/dL (31.6-35.5); Mean Corpuscular Hemoglobin 28.8 pg (28.0-33.3); Mean Corpuscular Volume 86.8 fL (83.0-100.0); Mean Platelet Volume 10.6 fL (9.4-12.4); Monocytes # 1.3 K/mcL (0.0-1.3); Monocytes % 8.9 %; Neutrophils # 12.2 K/mcL (1.6-8.9); Platelet Count 301 K/mcL (140-400); Red Blood Count 4.86 M/mcL (3.82-4.97); Red Cell Distribution Width 11.9 % (11.5-14.5); Segmented Neutrophils % 83.8 %; White Blood Count 14.6 K/mcL (4.3-11.1)
[2020-04-27] MEDS ORDERED: cefTRIAXone 1,000 MG in Water for inj. (sterile) 10 ML IVP ONE (03:21)
[2020-04-27 03:25] LABS: VBG HCO3 21 mEq/L (21-27); VBG PCO2 36 mmHg (41-51); VBG PH 7.36 pH Units (7.32-7.42); VBG PO2 99 mmHg (25-50)
[2020-04-27] MEDS ORDERED: Cefepime HCl 2,000 MG in 0.9 % Sodium Chloride Mini Bag 100 ML IVPB STA (03:29)
[2020-04-27 04:09] LABS: BUN/Creatinine Ratio 15 (6-26); Blood Urea Nitrogen 13 mg/dL (6-20); Calcium 9.1 mg/dL (8.6-10.3); Carbon Dioxide 19 mEq/L (23-29); Chloride 96 mEq/L (98-107); Glucose 546 mg/dL (70-105); Magnesium 2.1 mg/dL (1.6-2.6); Osmolality,Calculated 301 (280-300); Potassium 4.4 mEq/L (3.5-5.1); Sodium 133 mEq/L (136-145); eGFR For African Americans > 60 (> 60); eGFR For Non-African Americans > 60 (> 60)
[2020-04-27] MEDS ORDERED: *HR* Dextrose 50 % in Water (Vial) 50 ML VIAL IVP PRN ×2 (04:18→11:38)
[2020-04-27] MEDS ORDERED: D5% in 0.45% NACL w KCl 20 MEQ/1,000 ML MLS IVC PRN (04:18)
[2020-04-27] MEDS ORDERED: D5% in 0.45% NACL 1,000 ML IVC PRN (04:18)
[2020-04-27] MEDS ORDERED: Insulin Human Regular 100 UNIT in 0.9 % Sodium Chloride 100 ML IVC SCH (04:30)
[2020-04-27] MEDS: 0.45 % Sodium Chloride w/KCl 20 MEQ/1,000 ML MLS IVC SCH ×3 (05:21→14:06)
[2020-04-27] MEDS ORDERED: *HR* Promethazine 25 MG/ML VIAL IVP PRN (06:19)
[2020-04-27] MEDS ORDERED: Naloxone 0.4 MG/ML INJ IVP PRN (06:19)
[2020-04-27 07:44] LABS: BUN/Creatinine Ratio 16 (6-26); Blood Urea Nitrogen 9 mg/dL (6-20); Calcium 8.2 mg/dL (8.6-10.3); Carbon Dioxide 21 mEq/L (23-29); Chloride 107 mEq/L (98-107); Glucose 208 mg/dL (70-105); Osmolality,Calculated 289 (280-300); Potassium 3.7 mEq/L (3.5-5.1); Sodium 137 mEq/L (136-145); eGFR For African Americans > 60 (> 60); eGFR For Non-African Americans > 60 (> 60)
[2020-04-27] MEDS: Insulin DETEMIR 100 UNIT/ML X5UNITS SQ SCH ×2 (09:03→20:27)
[2020-04-27] MEDS: Acetaminophen 325 MG TABLET PO PRN ×2 (09:51→17:06)
[2020-04-27] MEDS ORDERED: Dextrose Gel 15 GM/37.5 ML TUBE PO PRN (11:38)
[2020-04-27] MEDS: Insulin LISPRO 300 UNITS/3 ML VIAL SQ SCH ×4 (12:12→20:49)
[2020-04-27 14:12] LABS: Estimated Average Glucose 392 mg/dl
[2020-04-27] MEDS: Cefepime HCl 1,000 MG in Water for inj. (sterile) 10 ML IVP SCH (17:04)
[2020-04-27 18:24] LABS: BUN/Creatinine Ratio 16 (6-26); Blood Urea Nitrogen 9 mg/dL (6-20); Calcium 8.1 mg/dL (8.6-10.3); Carbon Dioxide 22 mEq/L (23-29); Chloride 104 mEq/L (98-107); Glucose 170 mg/dL (70-105); Osmolality,Calculated 279 (280-300); Potassium 3.5 mEq/L (3.5-5.1); Sodium 133 mEq/L (136-145); eGFR For African Americans > 60 (> 60); eGFR For Non-African Americans > 60 (> 60)
[2020-04-28] MEDS: Acetaminophen 325 MG TABLET PO PRN ×2 (00:13→08:37)
[2020-04-28] MEDS: Cefepime HCl 1,000 MG in Water for inj. (sterile) 10 ML IVP SCH (05:09)
[2020-04-28] MEDS ORDERED: *HR* Enoxaparin 40 MG/0.4 ML SYRINGE SQ SCH (06:00)
[2020-04-28 08:24] LABS: Hematocrit 43.3 % (35.3-44.9); Hemoglobin 14.1 g/dL (11.5-15.4); Mean Corpuscular HGB Conc 32.6 g/dL (31.6-35.5); Mean Corpuscular Hemoglobin 29.4 pg (28.0-33.3); Mean Corpuscular Volume 90.2 fL (83.0-100.0); Mean Platelet Volume 10.6 fL (9.4-12.4); Platelet Count 228 K/mcL (140-400); Red Cell Distribution Width 11.9 % (11.5-14.5); White Blood Count 9.7 K/mcL (4.3-11.1)
[2020-04-28] MEDS: Insulin LISPRO 300 UNITS/3 ML VIAL SQ SCH (08:36)
[2020-04-28] MEDS: Insulin DETEMIR 100 UNIT/ML X5UNITS SQ SCH (08:37)
[2020-04-28 08:53] VITALS: BP 125/94
[2020-04-28 09:07] LABS: Alanine Aminotransferase 12 Units/L (7-52); Albumin 3.4 g/dL (3.5-5.7); Albumin/Globulin Ratio 1.1 (1.1-2.2); Alkaline Phosphatase 100 Units/L (34-104); Aspartate Amino Transferase 25 Units/L (13-39); BUN/Creatinine Ratio 12 (6-26); Bilirubin,Total 0.3 mg/dL (0.3-1.0); Blood Urea Nitrogen 6 mg/dL (6-20); Calcium 8.4 mg/dL (8.6-10.3); Carbon Dioxide 23 mEq/L (23-29); Chloride 105 mEq/L (98-107); Chol/HDL Ratio 2.9 (0-4.9); Cholesterol 134 mg/dL (< 200); Globulin 3.2 g/dL (2.4-3.5); Glucose 140 mg/dL (70-105); HDL Cholesterol 47 mg/dL (40-59); LDL Cholesterol,Calculated 60 mg/dL (< 100); Osmolality,Calculated 284 (280-300); Phosphorous 2.4 mg/dL (2.7-4.5); Potassium 3.2 mEq/L (3.5-5.1); Sodium 137 mEq/L (136-145); Total Protein 6.6 g/dL (6.4-8.9); Triglycerides 137 mg/dL (< 150); eGFR For African Americans > 60 (> 60); eGFR For Non-African Americans > 60 (> 60)
== END 2020-04-28 11:52 | disposition home or self-care (01) ==
LOC: EMEROOARM 02:29 → 2NENU 02:29
PROVIDERS: ADMIT Student in an Organized Health Care Education/Training Program; ATTEND Student in an Organized Health Care Education/Training Program

== ENCOUNTER 2021-03-03 10:34 | Observation (INO) ==
[2021-03-03 11:50] LABS: Basophils # 0.1 K/mcL (0.0-0.2); Basophils % 0.5 %; Eosinophils # 0.1 K/mcL (0.0-0.6); Eosinophils % 0.8 %; Hematocrit 33.4 % (35.3-44.9); Hemoglobin 10.8 g/dL (11.5-15.4); Immature Granulocytes % 0.4 % (0-4); Lymphocytes % 26.4 %; Mean Corpuscular HGB Conc 32.3 g/dL (31.6-35.5); Mean Corpuscular Hemoglobin 29.2 pg (28.0-33.3); Mean Corpuscular Volume 90.3 fL (83.0-100.0); Mean Platelet Volume 11.5 fL (9.4-12.4); Monocytes # 0.8 K/mcL (0.0-1.3); Monocytes % 6.9 %; Neutrophils # 7.3 K/mcL (1.6-8.9); Platelet Count 255 K/mcL (140-400); Red Cell Distribution Width 12.6 % (11.5-14.5); White Blood Count 11.2 K/mcL (4.3-11.1)
[2021-03-03 12:11] LABS: Alanine Aminotransferase 9 Units/L (7-52); Aspartate Amino Transferase 11 Units/L (13-39); BUN/Creatinine Ratio 24 (6-26); Blood Urea Nitrogen 14 mg/dL (6-20); Lactate Dehydrogenase 147 Units/L (140-271); Uric Acid 6.3 mg/dL (2.3-7.6); eGFR For African Americans > 60 (> 60); eGFR For Non-African Americans > 60 (> 60)
[2021-03-03 12:14] LABS: Protein/Creatinine Ratio,Urine 6.72 mg/mg (0.00-0.20)
[2021-03-03 12:56] LABS: Bilirubin,Urine Negative (Negative); Blood,Urine Moderate (Negative); Clarity,Urine Slightly Cloudy (Clear); Color,Urine Yellow (Yellow); Glucose,Urine (UA) 500 mg/dL (Normal); Ketones,Urine 15 mg/dL (Negative); Leukocyte Esterase,Urine Trace (Negative); Nitrite,Urine Negative (Negative); PH,Urine 6.5 pH Units (5.0-8.0); Protein,Urine >=300 mg/dL (Neg-Trace); Specific Gravity,Urine >= 1.030 (1.010-1.025); Urobilinogen,Urine Normal (Normal)
[2021-03-03 13:11] LABS: Squamous Epithelial Cell,Urine Few per hpf (None-Few); WBC,Urine 15-30 per hpf (0-3)
[2021-03-03 13:12] LABS: Bacteria,Urine Many per hpf (None-Few)
== END 2021-03-03 12:40 | disposition home or self-care (01) ==
LOC: 1NENULAB
PROVIDERS: ADMIT Obstetrics & Gynecology; ATTEND Obstetrics & Gynecology

== ENCOUNTER 2021-03-24 10:45 | Inpatient (IN) ==
[2021-03-24 11:31] LABS: Basophils # 0.1 K/mcL (0.0-0.2); Basophils % 0.6 %; Eosinophils # 0.1 K/mcL (0.0-0.6); Eosinophils % 0.5 %; Hematocrit 35.5 % (35.3-44.9); Hemoglobin 11.6 g/dL (11.5-15.4); Immature Granulocytes % 0.4 % (0-4); Lymphocytes # 2.4 K/mcL (0.6-4.6); Lymphocytes % 21.4 %; Mean Corpuscular HGB Conc 32.7 g/dL (31.6-35.5); Mean Corpuscular Hemoglobin 29.1 pg (28.0-33.3); Mean Corpuscular Volume 89.2 fL (83.0-100.0); Monocytes # 0.7 K/mcL (0.0-1.3); Monocytes % 6.5 %; Neutrophils # 7.9 K/mcL (1.6-8.9); Platelet Count 217 K/mcL (140-400); Red Blood Count 3.98 M/mcL (3.82-4.97); Red Cell Distribution Width 12.4 % (11.5-14.5); Segmented Neutrophils % 70.6 %; White Blood Count 11.2 K/mcL (4.3-11.1)
[2021-03-24 11:51] LABS: Protein/Creatinine Ratio,Urine 8.72 mg/mg (0.00-0.20)
[2021-03-24 11:57] LABS: Alanine Aminotransferase 12 Units/L (7-52); Aspartate Amino Transferase 20 Units/L (13-39); BUN/Creatinine Ratio 18 (6-26); Blood Urea Nitrogen 12 mg/dL (6-20); Glucose 337 mg/dL (70-105); Lactate Dehydrogenase 206 Units/L (140-271); Uric Acid 6.7 mg/dL (2.3-7.6); eGFR For African Americans > 60 (> 60); eGFR For Non-African Americans > 60 (> 60)
[2021-03-24] MEDS ORDERED: Dextrose Gel 15 GM/37.5 ML TUBE PO PRN ×2 (12:08)
[2021-03-24] MEDS ORDERED: *HR* Dextrose 50 % in Water (Vial) 50 ML VIAL IVP PRN (12:08)
[2021-03-24] MEDS ORDERED: D5% in Water 1,000 ML IVC PRN (12:08)
[2021-03-24] MEDS ORDERED: 0.9 % Sodium Chloride 500 ML IVC ONE (12:25)
[2021-03-24] MEDS ORDERED: 0.9 % Sodium Chloride 500 ML ONE (12:28)
[2021-03-24] MEDS ORDERED: Insulin LISPRO 300 UNITS/3 ML VIAL SUBQ STA (12:38)
[2021-03-24 13:14] LABS: Bacteria,Urine Few per hpf (None-Few); Bilirubin,Urine Negative (Negative); Blood,Urine Small (Negative); Clarity,Urine Turbid (Clear); Color,Urine Light-Yellow (Yellow); Glucose,Urine (UA) >=1000 mg/dL (Normal); Ketones,Urine 20 mg/dL (Negative); Leukocyte Esterase,Urine Large (Negative); Nitrite,Urine Negative (Negative); PH,Urine 6.5 pH Units (5.0-8.0); Protein,Urine >=300 mg/dL (Neg-Trace); RBC,Urine 15-30 per hpf (0-3); Squamous Epithelial Cell,Urine Few per hpf (None-Few); Urobilinogen,Urine Normal (Normal); WBC,Urine TNTC per hpf (0-3)
[2021-03-24] MEDS ORDERED: Insulin LISPRO 300 UNITS/3 ML VIAL SUBQ SCH (18:00)
== END 2021-03-24 15:10 | disposition home or self-care (01) | DRG 566 ==
LOC: 1NENULAB
PROVIDERS: ADMIT Obstetrics & Gynecology; ATTEND Obstetrics & Gynecology

== ENCOUNTER 2021-03-26 11:55 | Inpatient (IN) ==
[2021-03-26] MEDS ORDERED: *HR* Dextrose 50 % in Water (Vial) 50 ML VIAL IVP PRN ×2 (12:17→18:22)
[2021-03-26] MEDS ORDERED: CeFAZolin 2,000MG/50ML DUPLEX 2,000 MG/50 ML BAG IVPB ONE ×2 (12:17→18:22)
[2021-03-26] MEDS ORDERED: Famotidine 20 MG/2 ML VIAL IVP ONE (12:17)
[2021-03-26] MEDS ORDERED: Metoclopramide 10 MG/2 ML VIAL IVP ONE (12:17)
[2021-03-26] MEDS ORDERED: Ringers Solution, Lactated 1,000 ML IVC SCH ×2 (12:30→18:22)
[2021-03-26] MEDS ORDERED: Oxytocin 20 units/ LR 1000 mL 20 UNIT/1,000 ML BAG IVC SCH ×4 (12:30→18:22)
[2021-03-26 13:45] LABS: Basophils # 0.1 K/mcL (0.0-0.2); Basophils % 0.6 %; Eosinophils % 0.4 %; Hematocrit 35.3 % (35.3-44.9); Hemoglobin 11.4 g/dL (11.5-15.4); Immature Granulocytes % 0.4 % (0-4); Lymphocytes # 2.5 K/mcL (0.6-4.6); Lymphocytes % 23.3 %; Mean Corpuscular HGB Conc 32.3 g/dL (31.6-35.5); Mean Corpuscular Hemoglobin 28.9 pg (28.0-33.3); Mean Corpuscular Volume 89.6 fL (83.0-100.0); Monocytes # 0.8 K/mcL (0.0-1.3); Monocytes % 7.1 %; Neutrophils # 7.4 K/mcL (1.6-8.9); Platelet Count 251 K/mcL (140-400); Red Blood Count 3.94 M/mcL (3.82-4.97); Red Cell Distribution Width 12.4 % (11.5-14.5); Segmented Neutrophils % 68.2 %; White Blood Count 10.9 K/mcL (4.3-11.1)
[2021-03-26 14:05] LABS: Alanine Aminotransferase 11 Units/L (7-52); Aspartate Amino Transferase 17 Units/L (13-39); BUN/Creatinine Ratio 17 (6-26); Blood Urea Nitrogen 12 mg/dL (6-20); Lactate Dehydrogenase 170 Units/L (140-271); Uric Acid 7.2 mg/dL (2.3-7.6); eGFR For African Americans > 60 (> 60); eGFR For Non-African Americans > 60 (> 60)
[2021-03-26] MEDS ORDERED: Azithromycin 500 MG in 0.9 % Sodium Chloride 250 ML IVPB ONE ×2 (14:21→18:22)
[2021-03-26 14:37] LABS: Glucose 253 mg/dL (70-105)
[2021-03-26] MEDS ORDERED: 0.9 % Sodium Chloride 1,000 ML ONE ×2 (14:39→16:51)
[2021-03-26 14:41] LABS: Amphetamine Screen,Urine Negative ng/mL (Cutoff=1000); Barbiturate Screen,Urine Negative ng/mL (Cutoff=200); Benzodiazepines Screen,Urine Negative ng/mL (Cutoff=200); Cannabinoid Screen,Urine Negative ng/mL (Cutoff = 50); Cocaine Screen,Urine Negative ng/mL (Cutoff= 300); Opiate Screen,Urine Negative ng/mL (Cutoff=300); Phencyclidine Screen,Urine Negative ng/mL (Cutoff=25)
[2021-03-26 15:09] LABS: Creatinine,Urine 85 mg/dL; Protein/Creatinine Ratio,Urine 11.22 mg/mg (0.00-0.20)
[2021-03-26 15:57] LABS: Albumin 2.7 g/dL (3.5-5.7); Albumin/Globulin Ratio 0.8 (1.1-2.2); Alkaline Phosphatase 108 Units/L (34-104); Bilirubin,Total 0.3 mg/dL (0.3-1.0); Carbon Dioxide 19 mEq/L (23-29); Chloride 103 mEq/L (98-107); Globulin 3.4 g/dL (2.4-3.5); Osmolality,Calculated 284 (280-300); Potassium 4.6 mEq/L (3.5-5.1); Sodium 133 mEq/L (136-145); Total Protein 6.1 g/dL (6.4-8.9)
[2021-03-26] MEDS ORDERED: *HR* Morphine Sulfate/PF 10 MG/10 ML AMPUL ONE (16:00)
[2021-03-26] MEDS ORDERED: *HR* FentaNYL (PF) 100 MCG/2 ML VIAL ONE (16:00)
[2021-03-26] MEDS ORDERED: Ondansetron 4 MG/2 ML VIAL ONE (16:19)
[2021-03-26] MEDS ORDERED: Ketorolac 30 MG/ML VIAL ONE (16:19)
[2021-03-26] MEDS ORDERED: Acetaminophen IV 1,000 MG/100 ML BAG IVPB ONE (16:20)
[2021-03-26] MEDS ORDERED: *HR* Oxytocin 10 UNIT/ML VIAL IM ONE (16:51)
[2021-03-26] MEDS ORDERED: D5% in Water 1,000 ML IVC PRN ×2 (17:50→18:22)
[2021-03-26] MEDS ORDERED: Dextrose Gel 15 GM/37.5 ML TUBE PO PRN ×4 (17:50→18:22)
[2021-03-26 17:55] LABS: VBG HCO3 18 mEq/L (21-27); VBG PCO2 31 mmHg (41-51); VBG PH 7.38 pH Units (7.32-7.42); VBG PO2 156 mmHg (25-50)
[2021-03-26] MEDS ORDERED: Insulin LISPRO 300 UNITS/3 ML VIAL SUBQ SCH (18:00)
[2021-03-26] MEDS ORDERED: D5% in 0.9% NACL 1,000 ML IVC SCH ×3 (18:00→20:45)
[2021-03-26 18:10] LABS: Estimated Average Glucose 226 mg/dl; Hemoglobin A1C 9.5 %
[2021-03-26] MEDS ORDERED: Rho Immune Globulin 1,500 UNIT SYRINGE IM ONE (18:22)
[2021-03-26] MEDS ORDERED: Simethicone 80 MG TAB.CHEW PO PRN (18:22)
[2021-03-26] MEDS ORDERED: Ondansetron 4 MG/2 ML VIAL IVP PRN (18:22)
[2021-03-26] MEDS ORDERED: Metoclopramide 10 MG/2 ML VIAL IVP PRN (18:22)
[2021-03-26] MEDS ORDERED: Sennosides 8.6 MG TABLET PO PRN (18:22)
[2021-03-26] MEDS ORDERED: Insulin DETEMIR 100 UNIT/ML X5UNITS SUBQ SCH ×2 (21:00)
[2021-03-26 22:46] LABS: BUN/Creatinine Ratio 21 (6-26); Blood Urea Nitrogen 13 mg/dL (6-20); Calcium 7.4 mg/dL (8.6-10.3); Carbon Dioxide 15 mEq/L (23-29); Chloride 106 mEq/L (98-107); Glucose 243 mg/dL (70-105); Osmolality,Calculated 284 (280-300); Potassium 4.7 mEq/L (3.5-5.1); Sodium 133 mEq/L (136-145); eGFR For African Americans > 60 (> 60); eGFR For Non-African Americans > 60 (> 60)
[2021-03-26] MEDS: Ibuprofen 600 MG TABLET PO SCH (22:48)
[2021-03-26] MEDS: Acetaminophen 325 MG TABLET PO SCH (22:49)
[2021-03-27] MEDS: Insulin LISPRO 300 UNITS/3 ML VIAL SUBQ SCH ×7 (00:13→16:47)
[2021-03-27] MEDS: Ibuprofen 600 MG TABLET PO SCH ×4 (06:27→21:15)
[2021-03-27] MEDS: Acetaminophen 325 MG TABLET PO SCH ×3 (06:27→15:22)
[2021-03-27] MEDS ORDERED: 0.9 % Sodium Chloride 1,000 ML IVC SCH (07:15)
[2021-03-27 08:34] LABS: Basophils % 0.2 %; Hematocrit 33.9 % (35.3-44.9); Immature Granulocytes % 0.3 % (0-4); Lymphocytes # 2.3 K/mcL (0.6-4.6); Lymphocytes % 13.3 %; Mean Corpuscular HGB Conc 32.4 g/dL (31.6-35.5); Mean Corpuscular Hemoglobin 29.1 pg (28.0-33.3); Mean Corpuscular Volume 89.7 fL (83.0-100.0); Mean Platelet Volume 11.8 fL (9.4-12.4); Monocytes # 1.5 K/mcL (0.0-1.3); Monocytes % 8.3 %; Neutrophils # 13.6 K/mcL (1.6-8.9); Platelet Count 301 K/mcL (140-400); Red Blood Count 3.78 M/mcL (3.82-4.97); Red Cell Distribution Width 12.5 % (11.5-14.5); Segmented Neutrophils % 77.9 %
[2021-03-27 08:35] LABS: White Blood Count 17.5 K/mcL (4.3-11.1)
[2021-03-27 09:47] LABS: BUN/Creatinine Ratio 19 (6-26); Blood Urea Nitrogen 13 mg/dL (6-20); Calcium 7.7 mg/dL (8.6-10.3); Carbon Dioxide 21 mEq/L (23-29); Chloride 103 mEq/L (98-107); Glucose 149 mg/dL (70-105); Osmolality,Calculated 277 (280-300); Potassium 3.9 mEq/L (3.5-5.1); Sodium 132 mEq/L (136-145); eGFR For African Americans > 60 (> 60); eGFR For Non-African Americans > 60 (> 60)
[2021-03-27] MEDS: Prenatal Vit/FA 1 EACH TABLET PO SCH (09:56)
[2021-03-27] MEDS: Insulin DETEMIR 100 UNIT/ML X5UNITS SUBQ SCH ×2 (10:19→21:10)
[2021-03-28] MEDS: Ibuprofen 600 MG TABLET PO SCH ×5 (01:42→21:43)
[2021-03-28] MEDS: Acetaminophen 325 MG TABLET PO SCH ×5 (07:33→23:29)
[2021-03-28] MEDS: Prenatal Vit/FA 1 EACH TABLET PO SCH (07:47)
[2021-03-28] MEDS: Insulin LISPRO 300 UNITS/3 ML VIAL SUBQ SCH ×6 (07:49→16:44)
[2021-03-28] MEDS: Insulin DETEMIR 100 UNIT/ML X5UNITS SUBQ SCH ×2 (09:31→22:30)
[2021-03-28 09:56] LABS: Hematocrit 30.9 % (35.3-44.9); Mean Corpuscular HGB Conc 32.4 g/dL (31.6-35.5); Mean Corpuscular Hemoglobin 28.9 pg (28.0-33.3); Mean Corpuscular Volume 89.3 fL (83.0-100.0); Mean Platelet Volume 11.4 fL (9.4-12.4); Platelet Count 288 K/mcL (140-400); Red Blood Count 3.46 M/mcL (3.82-4.97); Red Cell Distribution Width 12.8 % (11.5-14.5); White Blood Count 16.1 K/mcL (4.3-11.1)
[2021-03-28] MEDS ORDERED: Insulin DETEMIR 100 UNIT/ML X5UNITS SUBQ ONE (11:26)
[2021-03-28] MEDS: *HR* OxyCODONE Immed Rel 5 MG TABLET PO PRN ×3 (12:37→23:30)
[2021-03-29] MEDS: Ibuprofen 600 MG TABLET PO SCH ×3 (06:25→21:09)
[2021-03-29] MEDS: Prenatal Vit/FA 1 EACH TABLET PO SCH (08:06)
[2021-03-29] MEDS: Acetaminophen 325 MG TABLET PO SCH ×3 (08:07→21:09)
[2021-03-29] MEDS: Insulin DETEMIR 100 UNIT/ML X5UNITS SUBQ SCH ×2 (08:07→21:27)
[2021-03-29] MEDS: Insulin LISPRO 300 UNITS/3 ML VIAL SUBQ SCH ×7 (08:36→21:19)
[2021-03-29 10:17] LABS: Basophils # 0.1 K/mcL (0.0-0.2); Basophils % 0.6 %; Eosinophils # 0.4 K/mcL (0.0-0.6); Eosinophils % 2.5 %; Hematocrit 28.9 % (35.3-44.9); Hemoglobin 9.3 g/dL (11.5-15.4); Immature Granulocytes % 0.7 % (0-4); Lymphocytes % 21.1 %; Mean Corpuscular HGB Conc 32.2 g/dL (31.6-35.5); Mean Corpuscular Hemoglobin 29.2 pg (28.0-33.3); Mean Corpuscular Volume 90.6 fL (83.0-100.0); Mean Platelet Volume 11.5 fL (9.4-12.4); Monocytes # 1.1 K/mcL (0.0-1.3); Monocytes % 7.5 %; Neutrophils # 9.7 K/mcL (1.6-8.9); Platelet Count 247 K/mcL (140-400); Red Blood Count 3.19 M/mcL (3.82-4.97); Segmented Neutrophils % 67.6 %; White Blood Count 14.4 K/mcL (4.3-11.1)
[2021-03-29 10:35] LABS: Alanine Aminotransferase 8 Units/L (7-52); Aspartate Amino Transferase 13 Units/L (13-39); BUN/Creatinine Ratio 24 (6-26); Blood Urea Nitrogen 16 mg/dL (6-20); Glucose 247 mg/dL (70-105); Lactate Dehydrogenase 197 Units/L (140-271); Uric Acid 6.7 mg/dL (2.3-7.6); eGFR For African Americans > 60 (> 60); eGFR For Non-African Americans > 60 (> 60)
[2021-03-29] MEDS: *HR* OxyCODONE Immed Rel 5 MG TABLET PO PRN (12:09)
[2021-03-30] MEDS: *HR* OxyCODONE Immed Rel 5 MG TABLET PO PRN ×3 (01:11→20:44)
[2021-03-30] MEDS: Ibuprofen 600 MG TABLET PO SCH ×2 (05:04→13:50)
[2021-03-30] MEDS: Acetaminophen 325 MG TABLET PO SCH ×2 (05:05→13:49)
[2021-03-30 05:27] LABS: Basophils # 0.1 K/mcL (0.0-0.2); Basophils % 0.6 %; Eosinophils # 0.4 K/mcL (0.0-0.6); Eosinophils % 3.6 %; Hematocrit 28.6 % (35.3-44.9); Hemoglobin 9.5 g/dL (11.5-15.4); Immature Granulocytes % 0.3 % (0-4); Lymphocytes # 3.2 K/mcL (0.6-4.6); Lymphocytes % 29.1 %; Mean Corpuscular HGB Conc 33.2 g/dL (31.6-35.5); Mean Corpuscular Hemoglobin 29.8 pg (28.0-33.3); Mean Corpuscular Volume 89.7 fL (83.0-100.0); Mean Platelet Volume 10.7 fL (9.4-12.4); Monocytes # 0.7 K/mcL (0.0-1.3); Monocytes % 6.8 %; Neutrophils # 6.4 K/mcL (1.6-8.9); Platelet Count 323 K/mcL (140-400); Red Blood Count 3.19 M/mcL (3.82-4.97); Red Cell Distribution Width 12.9 % (11.5-14.5); Segmented Neutrophils % 59.6 %; White Blood Count 10.8 K/mcL (4.3-11.1)
[2021-03-30 05:43] LABS: Alanine Aminotransferase 10 Units/L (7-52); Aspartate Amino Transferase 15 Units/L (13-39); BUN/Creatinine Ratio 28 (6-26); Blood Urea Nitrogen 17 mg/dL (6-20); Lactate Dehydrogenase 188 Units/L (140-271); Uric Acid 6.6 mg/dL (2.3-7.6); eGFR For African Americans > 60 (> 60); eGFR For Non-African Americans > 60 (> 60)
[2021-03-30] MEDS: Insulin DETEMIR 100 UNIT/ML X5UNITS SUBQ SCH ×2 (08:03→20:46)
[2021-03-30] MEDS: Prenatal Vit/FA 1 EACH TABLET PO SCH (08:03)
[2021-03-30] MEDS: Insulin LISPRO 300 UNITS/3 ML VIAL SUBQ SCH ×4 (08:04→21:25)
[2021-03-30 09:23] LABS: Protein/Creatinine Ratio,Urine 7.52 mg/mg (0.00-0.20)
[2021-03-31] MEDS: Ibuprofen 600 MG TABLET PO SCH ×2 (01:37→07:53)
[2021-03-31] MEDS: *HR* OxyCODONE Immed Rel 5 MG TABLET PO PRN (01:37)
[2021-03-31] MEDS: Prenatal Vit/FA 1 EACH TABLET PO SCH (07:53)
[2021-03-31 08:03] VITALS: BP 155/98
[2021-03-31] MEDS: Insulin LISPRO 300 UNITS/3 ML VIAL SUBQ SCH (08:56)
[2021-03-31] MEDS: Insulin DETEMIR 100 UNIT/ML X5UNITS SUBQ SCH (08:57)
[2021-03-31] MEDS: Acetaminophen 325 MG TABLET PO SCH (11:31)
== END 2021-03-31 11:35 | disposition home or self-care (01) | DRG 540 ==
LOC: 1NENULAB → 1NENUOBS 19:54
PROVIDERS: ADMIT Student in an Organized Health Care Education/Training Program; ATTEND Student in an Organized Health Care Education/Training Program

== ENCOUNTER 2021-04-18 17:41 | Observation (INO) ==
[2021-04-18] MEDS ORDERED: Isovue-370 500 ML BOTTLE IVP ONE (18:15)
[2021-04-18] MEDS ORDERED: 0.9 % Sodium Chloride 1,000 ML IVC ONE (18:18)
[2021-04-18 19:10] LABS: Basophils # 0.1 K/mcL (0.0-0.2); Basophils % 0.8 %; Eosinophils # 0.2 K/mcL (0.0-0.6); Eosinophils % 1.2 %; Hematocrit 34.9 % (35.3-44.9); Hemoglobin 11.1 g/dL (11.5-15.4); Immature Granulocytes % 0.4 % (0-4); Lymphocytes # 3.3 K/mcL (0.6-4.6); Lymphocytes % 25.9 %; Mean Corpuscular HGB Conc 31.8 g/dL (31.6-35.5); Mean Corpuscular Hemoglobin 28.2 pg (28.0-33.3); Mean Corpuscular Volume 88.8 fL (83.0-100.0); Mean Platelet Volume 8.9 fL (9.4-12.4); Monocytes # 1.1 K/mcL (0.0-1.3); Monocytes % 8.9 %; Neutrophils # 7.9 K/mcL (1.6-8.9); Platelet Count 492 K/mcL (140-400); Red Blood Count 3.93 M/mcL (3.82-4.97); Red Cell Distribution Width 12.7 % (11.5-14.5); Segmented Neutrophils % 62.8 %; White Blood Count 12.6 K/mcL (4.3-11.1)
[2021-04-18 19:31] LABS: Alanine Aminotransferase 16 Units/L (7-52); Albumin 2.8 g/dL (3.5-5.7); Albumin/Globulin Ratio 0.9 (1.1-2.2); Alkaline Phosphatase 81 Units/L (34-104); Aspartate Amino Transferase 14 Units/L (13-39); BUN/Creatinine Ratio 19 (6-26); Bilirubin,Total 0.2 mg/dL (0.3-1.0); Blood Urea Nitrogen 12 mg/dL (6-20); Calcium 8.5 mg/dL (8.6-10.3); Carbon Dioxide 24 mEq/L (23-29); Chloride 104 mEq/L (98-107); Globulin 3.1 g/dL (2.4-3.5); Glucose 184 mg/dL (70-105); Osmolality,Calculated 293 (280-300); Potassium 3.6 mEq/L (3.5-5.1); Sodium 139 mEq/L (136-145); Total Protein 5.9 g/dL (6.4-8.9); eGFR For African Americans > 60 (> 60); eGFR For Non-African Americans > 60 (> 60)
[2021-04-18 20:27] LABS: Bilirubin,Urine Negative (Negative); Blood,Urine Moderate (Negative); Clarity,Urine Clear (Clear); Color,Urine Light-Yellow (Yellow); Glucose,Urine (UA) >=1000 mg/dL (Normal); Ketones,Urine Negative (Negative); Leukocyte Esterase,Urine Negative (Negative); Nitrite,Urine Negative (Negative); Protein,Urine >=300 mg/dL (Neg-Trace); RBC,Urine 0-3 per hpf (0-3); Squamous Epithelial Cell,Urine Few per hpf (None-Few); Urobilinogen,Urine Normal (Normal)
[2021-04-18] MEDS ORDERED: cefOXitin 1,000 MG in 0.9 % Sodium Chloride Mini Bag 100 ML IVPB STA (22:51)
[2021-04-18] MEDS ORDERED: SODIUM CHLORIDE 0.9% IVPB ONE (22:56)
[2021-04-18] MEDS ORDERED: GENTAMICIN IVPB ONE (22:56)
[2021-04-18 23:50] LABS: Candida DNA Not Detected (Not Detect); Gardnerella DNA Not Detected (Not Detect); Trichomonas DNA Not Detected (Not Detect)
[2021-04-19] MEDS ORDERED: *HR* Dextrose 50 % in Water (Vial) 50 ML VIAL IVP PRN (00:06)
[2021-04-19] MEDS ORDERED: Dextrose Gel 15 GM/37.5 ML TUBE PO PRN ×2 (00:06)
[2021-04-19] MEDS ORDERED: D5% in Water 1,000 ML IVC PRN (00:06)
[2021-04-19] MEDS ORDERED: Acetaminophen 325 MG TABLET PO PRN (00:08)
[2021-04-19] MEDS ORDERED: *HR* HYDROcodone/Acet 5/325 mg TABLET PO PRN (00:08)
[2021-04-19] MEDS ORDERED: Ondansetron 4 MG/2 ML VIAL IVP PRN (00:08)
[2021-04-19] MEDS ORDERED: Melatonin 3 MG TABLET PO PRN (00:08)
[2021-04-19] MEDS ORDERED: Naloxone 0.4 MG/ML INJ IVP PRN (00:08)
[2021-04-19] MEDS: Clindamycin 900 MG/50 ML 900 MG/50 ML IV.SOLN IVPB SCH ×2 (01:39→08:46)
[2021-04-19] MEDS ORDERED: *HR* Metoprolol 5 MG/5 ML VIAL IVP ONE (04:25)
[2021-04-19 05:34] LABS: Basophils # 0.1 K/mcL (0.0-0.2); Basophils % 1.1 %; Eosinophils # 0.3 K/mcL (0.0-0.6); Eosinophils % 2.4 %; Hematocrit 34.6 % (35.3-44.9); Hemoglobin 10.9 g/dL (11.5-15.4); Immature Granulocytes % 0.3 % (0-4); Lymphocytes # 3.9 K/mcL (0.6-4.6); Lymphocytes % 37.3 %; Mean Corpuscular HGB Conc 31.5 g/dL (31.6-35.5); Mean Corpuscular Hemoglobin 28.2 pg (28.0-33.3); Mean Corpuscular Volume 89.4 fL (83.0-100.0); Mean Platelet Volume 9.1 fL (9.4-12.4); Monocytes # 0.8 K/mcL (0.0-1.3); Monocytes % 7.2 %; Neutrophils # 5.4 K/mcL (1.6-8.9); Platelet Count 460 K/mcL (140-400); Red Blood Count 3.87 M/mcL (3.82-4.97); Red Cell Distribution Width 12.8 % (11.5-14.5); Segmented Neutrophils % 51.7 %; White Blood Count 10.4 K/mcL (4.3-11.1)
[2021-04-19 05:54] LABS: Estimated Average Glucose 217 mg/dl; Hemoglobin A1C 9.2 %
[2021-04-19 05:57] LABS: BUN/Creatinine Ratio 15 (6-26); Blood Urea Nitrogen 8 mg/dL (6-20); Calcium 8.1 mg/dL (8.6-10.3); Carbon Dioxide 24 mEq/L (23-29); Chloride 105 mEq/L (98-107); Glucose 316 mg/dL (70-105); Osmolality,Calculated 290 (280-300); Potassium 3.6 mEq/L (3.5-5.1); Sodium 135 mEq/L (136-145); eGFR For African Americans > 60 (> 60); eGFR For Non-African Americans > 60 (> 60)
[2021-04-19] MEDS: Insulin LISPRO 300 UNITS/3 ML VIAL SUBQ SCH ×2 (10:35→11:22)
[2021-04-19] MEDS ORDERED: cefOXitin 1,000 MG in Water for inj. (sterile) 10 ML IVP SCH (11:00)
[2021-04-19 11:09] VITALS: BP 135/89
[2021-04-19] MEDS: Calcium Gluconate 1gm/50mL 1 GM/50 ML BAG IVPB SCH ×2 (11:19→12:57)
[2021-04-19] MEDS ORDERED: Insulin Regular, Human 100 UNIT/ML IV ONE (14:14)
[2021-04-19] MEDS ORDERED: Insulin Human Regular 5 UNIT in 0.9 % Sodium Chloride 10 ML IV ONE (14:19)
[2021-04-19] MEDS ORDERED: Insulin DETEMIR 100 UNIT/ML X5UNITS SUBQ ONE (14:41)
[2021-04-19] MEDS ORDERED: LABETALOL HCL 200 MG PO SCH (15:00)
[2021-04-19] MEDS ORDERED: Lactobacillus 1 EACH CAP.SPRINK PO SCH (21:00)
[2021-04-19] MEDS ORDERED: Insulin LISPRO 300 UNITS/3 ML VIAL SUBQ SCH (21:00)
[2021-04-19] MEDS ORDERED: SODIUM CHLORIDE 0.9% IVPB SCH ×2 (23:00)
[2021-04-19] MEDS ORDERED: GENTAMICIN IVPB SCH ×2 (23:00)
== END 2021-04-19 15:43 | disposition home or self-care (01) ==
LOC: EMEROOARM 17:41 → 3NENU 17:41 → SUATTDRO 04-19 00:14 → 3NENU 04-19 03:24
PROVIDERS: ADMIT Family Medicine; ATTEND Internal Medicine

== ENCOUNTER → 2022-08-03 19:15 | Observation (INO) ==
[2022-08-03 15:49] VITALS: BP 168/102; PULSE 79; TEMP 98.5
[2022-08-03 16:03] LABS: Basophils # 0.1 K/mcL (0.0-0.2); Basophils % 0.9 %; Eosinophils # 0.1 K/mcL (0.0-0.6); Eosinophils % 0.6 %; Hematocrit 38.3 % (35.3-44.9); Hemoglobin 12.7 g/dL (11.5-15.4); Immature Granulocytes % 0.3 % (0-4); Lymphocytes # 2.7 K/mcL (0.6-4.6); Lymphocytes % 31.2 %; Mean Corpuscular HGB Conc 33.2 g/dL (31.6-35.5); Mean Corpuscular Hemoglobin 29.1 pg (28.0-33.3); Mean Corpuscular Volume 87.8 fL (83.0-100.0); Mean Platelet Volume 11.2 fL (9.4-12.4); Monocytes # 0.8 K/mcL (0.0-1.3); Monocytes % 8.5 %; Neutrophils # 5.1 K/mcL (1.6-8.9); Platelet Count 345 K/mcL (140-400); Red Blood Count 4.36 M/mcL (3.82-4.97); Red Cell Distribution Width 12.6 % (11.5-14.5); Segmented Neutrophils % 58.5 %; White Blood Count 8.8 K/mcL (4.3-11.1)
[2022-08-03 16:21] LABS: Alanine Aminotransferase 12 Units/L (7-52); Aspartate Amino Transferase 16 Units/L (13-39); BUN/Creatinine Ratio 13 (6-26); Blood Urea Nitrogen 11 mg/dL (6-20); Glucose 192 mg/dL (70-105); Lactate Dehydrogenase 186 Units/L (140-271); Uric Acid 5.7 mg/dL (2.3-7.6)
[2022-08-03 16:23] LABS: Protein/Creatinine Ratio,Urine 16.31 mg/mg (0.00-0.20)
[2022-08-03 17:05] LABS: Calcium 7.8 mg/dL (8.6-10.3); Carbon Dioxide 21 mEq/L (23-29); Chloride 105 mEq/L (98-107); Osmolality,Calculated 281 (280-300); Potassium 4.1 mEq/L (3.5-5.1); Sodium 133 mEq/L (136-145)
[~2022-08-03 19:15] MED LIST: *HR* Labetalol 20 MG/4 ML SYRINGE IVP ONE; *HR* Labetalol 20 MG/4 ML SYRINGE IVP PRN; 0.9 % Sodium Chloride 1,000 ML IVC ONE; 0.9 % Sodium Chloride 1,000 ML IVC SCH; 0.9 % Sodium Chloride 1,000 ML ONE; Calcium Gluconate 1,000 MG/10 ML VIAL IVP PRN; Magnesium Sulf 20 gm/SW 500mL 20 GM/500 ML IV.SOLN IVC SCH; Magnesium Sulf 20 gm/SW 500mL 6 GM/150 ML BAG IV ONE; Ondansetron 4 MG/2 ML VIAL ONE
[2022-08-03 19:41] LABS: Estimated Average Glucose 272 mg/dl; Hemoglobin A1C 11.1 %
== END | disposition short-term general hospital (02) ==
LOC: 1NENULAB
PROVIDERS: ADMIT Obstetrics & Gynecology; ATTEND Obstetrics & Gynecology